=== PATIENT | female | born 1965 | race Caucasian/White ===

== ENCOUNTER 2018-10-12 17:24 | Inpatient (IN) | payer BC ==
--- NOTE | 2018-10-12 17:31 | PDOC ---
Rapid Medical Evaluation Time Seen by Provider: 10/12/18 17:29 Medical Evaluation: Allergies Allergy/AdvReac Type Severity Reaction Status Date / Time No Known Allergies Allergy Verified 10/12/18 17:29 10/12/18 17:30 I have performed a brief in-person evaluation of the patient. The patient presents with a chief complaint of: right 2nd toe non healing wound. Patient referred to ed by pmd for admission for treatment Pertinent physical exam findings. NAD alert and oriented even and unlabored breathing post-procedure shoe on right foot I have ordered the following. iv access, labs The patient will proceed to the ED for further evaluation. Discharge Disposition - Referrals Referrals: Rafita Ledesma, LEENA [Primary Care Provider] - - Patient Instructions - Post Discharge Activity
[2018-10-12 17:51] LABS: BASO % 0.6 % (0-2.0); EOS % 1.5 % (0-4.5); HEMOGLOBIN 13.8 GM/dL (10.7-15.3); LYMPH % 26.9 % (8-40); MCH 30.2 pg (25.7-33.7); MCHC 34.6 g/dl (32.0-36.0); MEAN CELL VOLUME 87.4 fl (80-96); MEAN PLT VOLUME 8.1 fl (7.5-11.1); MONO % 6.1 % (3.8-10.2); NEUT % 64.9 % (42.8-82.8); PLATELET COUNT 237 K/MM3 (134-434); RBC 4.58 M/mm3 (3.60-5.2); RDW 12.9 % (11.6-15.6)
[2018-10-12] MEDS ORDERED: BACITRACIN 0.9 GM PACKET ONE (18:45)
[2018-10-12 18:50] LABS: ALBUMIN 4.3 g/dl (3.4-5.0); ALK PHOS 86 U/L (45-117); ANION GAP 5 MMOL/L (8-16); BILIRUBIN,TOTAL 0.4 mg/dL (0.2-1); BLOOD UREA NITROGEN 19 mg/dL (7-18); CALCIUM 9.7 mg/dL (8.5-10.1); CHLORIDE 100 mmol/L (98-107); CO2 31 mmol/L (21-32); CREATININE 0.9 mg/dL (0.55-1.3); GLUCOSE,RANDOM 156 mg/dL (74-106); POTASSIUM 4.4 mmol/L (3.5-5.1); SGOT/AST 15 U/L (15-37); SGPT/ALT 25 U/L (13-61); SODIUM 136 mmol/L (136-145)
--- NOTE | 2018-10-12 18:54 | PDOC ---
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 She had an MRI which was ordered by Dr. Ledesma which was suspicious for osteomylitis. She has been taking keflex since October 06 but she reports that her ulcer has gotten bigger and her toe hurts a significant amount when she ambulates. She was seen by Dr. Tellez recently at the [facility] for evaluation of this RT 2nd toe ulcer. She has no toe pain at rest. She has full strength and sensation in her toe and foot. She has a note from Dr. Ledesma which requests admission to Dr. Mario's service and for consults to be placed to Dr. Ledesma, Dr. Tellez, and Dr. Howard. She denies any recent fevers, chills, chest pain, SOB, difficulty breathing, headache, blurry vision, neck pain, abdominal pain, nausea, vomiting, diarrhea, or constipation. PCP: Shalini Beverly Podiatrst: Dr. Sharp Vascular surgeon: Dr. Tellez Psh: Cholecystectomy, R hip surgery for septic hip. Allergies: NKA, NKDA Social Hx: Smokes 1 cigarette per day. Former smoker (25-year history, 1/2 pack daily). Denies alcohol or other substance usage. Past History - Past Medical History Allergies/Adverse Reactions: Allergies Allergy/AdvReac Type Severity Reaction Status Date / Time No Known Allergies Allergy Verified 10/12/18 17:29 Home Medications: Ambulatory Orders Cholecalciferol (Vitamin D3) [Vitamin D3 -] 1,000 units PO DAILY 10/08/18 Gabapentin 300 mg PO TID 10/08/18 Glipizide [Glipizide ER] 10 mg PO BID 10/08/18 Lisinopril [Prinivil] 20 mg PO DAILY 10/08/18 Metformin HCl [Glucophage] 1,000 mg PO BID 10/08/18 Sitagliptin Phosphate [Januvia -] 50 mg PO BID 10/08/18 COPD: No Diabetes: Yes HTN: Yes - Surgical History Cholecystectomy: Yes - Suicide/Smoking/Psychosocial Hx Smoking History: Former smoker Have you smoked in the past 12 months: No If you are a former smoker, when did you quit?: 25 yrs ago Information on smoking cessation initiated: No Review of Systems - Review of Systems Able to Perform ROS?: Yes Comments:: CONSTITUTIONAL: Absent: fever, no chills, no fatigue EYES: Absent: visual changes ENT: Absent: ear pain, no sore throat CARDIOVASCULAR: Absent: chest pain, no palpitations RESPIRATORY: Absent: cough, no SOB GI: Absent: abdominal pain, no nausea, no vomiting, no constipation, no diarrhea GENITOURINARY: Absent: dysuria, no frequency, no hematuria MUSKULOSKELETAL: Absent: back pain, no arthralgia, no myalgia SKIN: Present: rash NEURO: Absent: headache *Physical Exam - Vital Signs Last Vital Signs Temp Pulse Resp BP Pulse Ox 98.4 F 84 18 163/67 98 10/12/18 17:29 10/12/18 17:29 10/12/18 17:29 10/12/18 17:29 10/12/18 17:29 - Physical Exam Comments: Right Foot: 2 + pulses in oth ankles. Full ROM. Equal strength and sensation throughout both feet. There is a 2x2 ulcer with a possibly necrotic center. The RT 2nd toe is painful to touch. She is able to move it without any difficulty. The entire toe appears mildly erythematous. GENERAL: Well-appearing, well-nourished. No apparent distress. HEENT: Normocephalic, atraumatic. PERRL, EOM intact. CARDIOVASCULAR: Normal S1, S2. Regular rate and rhythm. PULMONARY: Clear to auscultation bilaterally. ABDOMEN: Soft, non-distended, non-tender. EXTREMITIES: Normal ROM in all four extremities. No gross deformities other than right 2nd big toe. SKIN: Warm, dry. NEUROLOGICAL: No focal neurological deficits. Moderate Sedation - Procedure Monitoring Vital Signs: Procedure Monitoring Vital Signs Temperature 98.4 F 10/12/18 17:29 Pulse Rate 84 10/12/18 17:29 Respiratory Rate 18 10/12/18 17:29 Blood Pressure 163/67 10/12/18 17:29 O2 Sat by Pulse Oximetry (%) 98 10/12/18 17:29 ED Treatment Course - LABORATORY CBC & Chemistry Diagram: 10/12/18 17:41 10/12/18 17:41 - ADDITIONAL ORDERS Additional order review: Laboratory Results 10/12/18 17:41 Sodium 136 Potassium 4.4 Chloride 100 Carbon Dioxide 31 Anion Gap 5 L BUN 19 H Creatinine 0.9 Creat Clearance w eGFR > 60 Random Glucose 156 H Calcium 9.7 Total Bilirubin 0.4 AST 15 ALT 25 Alkaline Phosphatase 86 Total Protein 8.0 Albumin 4.3 10/12/18 17:41 RBC 4.58 MCV 87.4 MCHC 34.6 RDW 12.9 MPV 8.1 Neutrophils % 64.9 Lymphocytes % 26.9 D Monocytes % 6.1 Eosinophils % 1.5 Basophils % 0.6 Medical Decision Making - Medical Decision Making 53 Yo M w a pmh of HTN, T2DM, Right 2nd toe infection presents to the ER sent in by her nurse ldr to be admitted for her ulcer on the right toe after a failed outpatient treatment of cephalexin. She had an MRI which was ordered by Dr. Ledesma which was suspicious for possible osteomylitis. She has been taking keflex since October 06 but she reports that her ulcer has gotten bigger and her toe hurts a significant amount when she ambulates. She was seen by Dr. Tellez recently at the [facility] for evaluation of this RT 2nd toe ulcer. She has no toe pain at rest. She has full strength and sensation in her toe and foot. She has a note from Dr. Ledesma which requests admission to Dr. Mario's service and for consults to be placed to Dr. Ledesma, Dr. Tellez, and Dr. Howard. DDx IBNLT: Osteo vs cellulitis, diabetic ulcer, narcotizing fash, erysipelas Plan: Cbc, Cmp, Lactic, CPK, blood cultures, wound cultures, foot/toe x-rays, EKG, IV, Vanc, Zosyn, Admit, Consults to podiatry, ID, Vascular. - Consults placed. Labs unremarkable other than mild bump in BUN to 19. EKG normal sinus X-rays do not show signs of sub-Q donna. Spoke with Dr. Howard about patient. He agrees with starting Vanc and Zosyn and he will see the patient tomorrow. Call placed for admission to Dr. Mario for admission at 9:46 - Admission accepted *DC/Admit/Observation/Transfer Diagnosis at time of Disposition: Diabetic toe ulcer - Discharge Dispostion Condition at time of disposition: Guarded Decision to Admit order: Yes - Referrals - Patient Instructions - Post Discharge Activity
[2018-10-12] MEDS ORDERED: VANCOMYCIN 1,000 MG in DEXTROSE 5%-WATER - 250 ML IVPB ONE (19:23)
[2018-10-12] MEDS ORDERED: PIPERACILLIN/TAZOB 3.375 GM 3.375 GM in DEXTROSE 5%-WATER - 50 ML IVPB ONE (19:24)
--- NOTE | 2018-10-12 19:31 | PDOC ---
Attending Attestation - HPI HPI: 10/12/18 20:10 The patient is a 53 year old female with a past medical history of T2DM, HTN, and right 2nd toe osteomyelitis who presents to the emergency department by her edge burnisher uppers for evaluation of worsening ulcer on right toe. Patient was treated with cephalexin. Patient reports difficulty ambulating secondary to toe pain. Denies chest pain, SOB, headache, neck pain, abdominal pain, blurry vision, nausea, vomiting, recent fevers, chills, diarrhea, or constipation. Wash Oil Pump Operator: Dr. Sharp Vascular surgeon: Dr. Tellez PCP: Dr. Shalini Beverly - Physicial Exam PE: I agree with the resident's findings on the physical exam. - Medical Decision Making Documentation prepared by Albino White, acting as medical pathology teacher for Brigida Freitas DO. <Albino White - Last Filed: 10/12/18 20:10> - Resident Resident Name: Ravi Orlando - ED Attending Attestation I have performed the following: I have examined & evaluated the patient, The case was reviewed & discussed with the resident, I agree w/resident's findings & plan - Medical Decision Making 53-year-old female sent in for admission due to failed outpatient treatment with ulceration to the right second toe X-rays show no evidence of subcutaneous gas There is no obvious bony destruction though according to recent MRI reports done outpatient there were questionable changes consistent with osteomyelitis Zosyn and vancomycin initiated in the emergency department after both blood and wound cultures were obtained and Infectious disease consult was obtained Patient to be admitted to medical service for further management Impression infected toe ulcer 10/12/18 21:51 <Brigida Freitas - Last Filed: 10/12/18 21:53>
[2018-10-12] MEDS ORDERED: VANCOMYCIN 1 GRAM (PRE-DOCKED) 1,000 MG/250 ML BAG IVPB ONE (20:56)
[2018-10-12] MEDS ORDERED: PIPERACILLIN/TAZOB 3.375 GM 3.375 GM/50 ML BAG IVPB ONE (20:56)
[2018-10-12] MEDS ORDERED: ACETAMINOPHEN 325 MG TABLET (FP) PO ONE (21:32)
[2018-10-12] MEDS ORDERED: ACETAMINOPHEN 325 MG TABLET (FP) ONE (22:24)
[2018-10-13] MEDS: INSULIN SLIDING SCALE (NOVOLOG) 1 VIAL SQ SCH ×4 (06:10→22:10)
[2018-10-13] MEDS: metFORMIN HCL 500 MG TABLET (FP) PO SCH ×2 (06:36→17:13)
[2018-10-13] MEDS: glipiZIDE-XL 10 MG TAB.ER.24 (FP) PO SCH ×2 (06:36→18:23)
[2018-10-13] MEDS: GABAPENTIN 300 MG CAPSULE (FP) PO SCH ×3 (06:37→22:09)
[2018-10-13] MEDS: sitaGLIPtin PHOSPHATE 50 MG TABLET PO SCH ×2 (06:37→17:13)
[2018-10-13 08:32] LABS: BASO % 0.4 % (0-2.0); EOS % 1.4 % (0-4.5); HEMATOCRIT 37.5 % (32.4-45.2); HEMOGLOBIN 12.9 GM/dL (10.7-15.3); LYMPH % 20.2 % (8-40); MCH 29.7 pg (25.7-33.7); MCHC 34.3 g/dl (32.0-36.0); MEAN CELL VOLUME 86.7 fl (80-96); MEAN PLT VOLUME 8.3 fl (7.5-11.1); MONO % 7.7 % (3.8-10.2); NEUT % 70.3 % (42.8-82.8); PLATELET COUNT 218 K/MM3 (134-434); RBC 4.33 M/mm3 (3.60-5.2); RDW 12.7 % (11.6-15.6); WHITE BLOOD COUNT 10.5 K/mm3 (4.0-10.0)
[2018-10-13 08:56] LABS: ALBUMIN 3.8 g/dl (3.4-5.0); ALK PHOS 75 U/L (45-117); ANION GAP 6 MMOL/L (8-16); BILIRUBIN,TOTAL 0.5 mg/dL (0.2-1); BLOOD UREA NITROGEN 22 mg/dL (7-18); CHLORIDE 102 mmol/L (98-107); CO2 28 mmol/L (21-32); CREATININE 0.8 mg/dL (0.55-1.3); GLUCOSE,RANDOM 146 mg/dL (74-106); POTASSIUM 4.7 mmol/L (3.5-5.1); SGOT/AST 8 U/L (15-37); SGPT/ALT 18 U/L (13-61); SODIUM 136 mmol/L (136-145)
[2018-10-13] MEDS ORDERED: PIPERACILLIN/TAZOBACTAM 3.375 GM VIAL IVPB ONE (09:36)
[2018-10-13] MEDS ORDERED: DEXTROSE 5%-WATER - 50 ML IVPB ONE ×2 (09:36→15:06)
[2018-10-13] MEDS: ACETAMINOPHEN 325 MG TABLET (FP) PO PRN ×2 (09:45→18:23)
[2018-10-13] MEDS: LISINOPRIL 20 MG TABLET (FP) PO SCH (09:46)
[2018-10-13] MEDS: HEPARIN NA (PORCINE) 5,000 UNITS/ML 1ML VIAL SQ SCH ×2 (09:49→22:09)
[2018-10-13] MEDS: VANCOMYCIN 1 GM in D5W (PRE-DOCKED) 1,000 MG/250 ML IVPB SCH ×2 (09:49→22:10)
[2018-10-13] MEDS ORDERED: PIPERACILLIN/TAZOB 3.375 GM 3.375 GM in DEXTROSE 5%-WATER - 50 ML IVPB SCH (10:00)
--- NOTE | 2018-10-13 10:09 | CONSULT ---
- Consultation REQUESTING PROVIDER: CONSULT REQUEST: We have been asked to surgically evaluate this patient for Left 2nd toe ulcer PCP:Tracey Mario HISTORY OF PRESENT ILLNESS: 53yo F admitted for concern of osteo of the 2nd Lt toe. Pt was seen by Dr. Tellez in clinic last week and had vascular studies ordered. Pt states she is a former smoker, denies vascular problems. Pt states that she has had the wound for about 1 month. PMHx: DM Home Medications Medication Instructions Recorded Cholecalciferol (Vitamin D3) 1,000 units PO DAILY 10/08/18 [Vitamin D3 -] Gabapentin 300 mg PO TID 10/08/18 Glipizide [Glipizide ER] 10 mg PO BID 10/08/18 Lisinopril [Prinivil] 20 mg PO DAILY 10/08/18 Metformin HCl [Glucophage] 1,000 mg PO BID 10/08/18 Sitagliptin Phosphate [Januvia -] 50 mg PO BID 10/08/18 Allergies Allergy/AdvReac Type Severity Reaction Status Date / Time No Known Allergies Allergy Verified 10/12/18 17:29 PHYSICAL EXAM: GENERAL: Awake, alert, and fully oriented, in no acute distress. HEAD: Normal with no signs of trauma. EYES: PERRL, sclera anicteric, conjunctiva clear. NECK: Normal ROM, supple without lymphadenopathy, JVD, or masses. LUNGS: Clear to auscultation bilat anteriorly. No wheezes, and no crackles. No accessory muscle use. HEART: Regular rate and rhythm. No murmurs ABDOMEN: Soft, nontender, not distended, normoactive bowel sounds, no guarding, no rebound, no masses. No organomegaly. MUSCULOSKELETAL: Normal ROM at all joints. No bony deformities or tenderness. No CVA tenderness. LOWER EXTREMITIES: warm, well-perfused. No calf tenderness. No peripheral edema. Lt 2nd toe, 1 cm ulcer lateral aspect distal phalanx NEUROLOGICAL: Normal speech, gait not observed. PSYCH: Cooperative. Good eye contact. Appropriate mood and affect. SKIN: Warm, dry, normal turgor, no rashes or lesions noted. Vital Signs Temperature 97.6 F 10/13/18 06:00 Pulse Rate 65 10/13/18 06:00 Respiratory Rate 20 10/13/18 06:00 Blood Pressure 125/65 10/13/18 06:00 O2 Sat by Pulse Oximetry (%) 99 10/13/18 01:14 Lab Results WBC 10.5 K/mm3 (4.0-10.0) H 10/13/18 07:57 RBC 4.33 M/mm3 (3.60-5.2) 10/13/18 07:57 Hgb 12.9 GM/dL (10.7-15.3) 10/13/18 07:57 Hct 37.5 % (32.4-45.2) 10/13/18 07:57 MCV 86.7 fl (80-96) 10/13/18 07:57 MCHC 34.3 g/dl (32.0-36.0) 10/13/18 07:57 RDW 12.7 % (11.6-15.6) 10/13/18 07:57 Plt Count 218 K/MM3 (134-434) 10/13/18 07:57 Sodium 136 mmol/L (136-145) 10/13/18 07:57 Potassium 4.7 mmol/L (3.5-5.1) 10/13/18 07:57 Chloride 102 mmol/L (98-107) 10/13/18 07:57 Carbon Dioxide 28 mmol/L (21-32) 10/13/18 07:57 Anion Gap 6 MMOL/L (8-16) L 10/13/18 07:57 BUN 22 mg/dL (7-18) H 10/13/18 07:57 Creatinine 0.8 mg/dL (0.55-1.3) 10/13/18 07:57 Random Glucose 146 mg/dL (74-106) H 10/13/18 07:57 Calcium 9.0 mg/dL (8.5-10.1) 10/13/18 07:57 Problem List - Problems (1) Diabetic toe ulcer Assessment/Plan: Plan -will order vascular studies -wound care as per podiatry team -appreciate med/ID recs for possible osteo Code(s): E11.621 - TYPE 2 DIABETES MELLITUS WITH FOOT ULCER; L97.509 - NON- PRESSURE CHRONIC ULCER OTH PRT UNSP FOOT W UNSP SEVERITY
[2018-10-13] MEDS ORDERED: INSULIN (NOVOLOG) ASPART 100 UNITS/ML 10ML VIAL ONE (11:33)
--- NOTE | 2018-10-13 12:17 | EKG ---
Test Reason : Blood Pressure : / mmHG Vent. Rate : 076 BPM Atrial Rate : 076 BPM P-R Int : 108 ms QRS Dur : 086 ms QT Int : 382 ms P-R-T Axes : 055 031 037 degrees QTc Int : 429 ms SINUS RHYTHM WITH SHORT CA OTHERWISE NORMAL ECG Confirmed by MD DARCY, VIVIANA ([id number]) on 10/13/2018 12:16:28 PM Referred By: Confirmed By:VIVIANA TAVERAS MD
--- NOTE | 2018-10-13 13:15 | CON.ID ---
Consult Consult Specialty:: infectious diseases Referred by:: Reason for Consultation:: foot pain - History of Present Illness Chief Complaint: pain of the foot,wound History of Present Illness: 53 Yo F w a pmh of HTN, T2DM,admitted for the wound her ulcer on the right toe after a failed outpatient treatment of cephalexin. She had an MRI which was ordered by Dr. Ledesma which was suspicious for osteomylitis. She has been taking keflex since October 06 but she reports that her ulcer has gotten bigger and her toe hurts a significant amount when she ambulates. She was seen by Dr. Tellez recently at the [facility] for evaluation of this RT 2nd toe ulcer. She has no toe pain at rest. She has full strength and sensation in her toe and foot. She denies any recent fevers, chills, chest pain, SOB, difficulty breathing, headache, blurry vision, neck pain, abdominal pain, nausea, vomiting, diarrhea, or constipation. - History Source History Provided By: Patient Limitations to Obtaining History: No Limitations - Alcohol/Substance Use Hx Alcohol Use: No - Smoking History Smoking history: Never smoked Have you smoked in the past 12 months: No If you are a former smoker, when did you quit?: 25 yrs ago Home Medications - Allergies Allergies/Adverse Reactions: Allergies Allergy/AdvReac Type Severity Reaction Status Date / Time No Known Allergies Allergy Verified 10/12/18 17:29 - Home Medications Home Medications: Ambulatory Orders Cholecalciferol (Vitamin D3) [Vitamin D3 -] 1,000 units PO DAILY 10/08/18 RX: Gabapentin 300 mg PO TID 10/08/18 RX: Glipizide [Glipizide ER] 10 mg PO BID 10/08/18 RX: Lisinopril [Prinivil] 20 mg PO DAILY 10/08/18 RX: Metformin HCl [Glucophage] 1,000 mg PO BID 10/08/18 Sitagliptin Phosphate [Januvia -] 50 mg PO BID 10/08/18 Review of Systems - Review of Systems Constitutional: reports: No Symptoms Eyes: reports: No Symptoms HENT: reports: No Symptoms Neck: reports: No Symptoms Cardiovascular: reports: No Symptoms Respiratory: reports: No Symptoms Gastrointestinal: reports: No Symptoms Genitourinary: reports: No Symptoms Musculoskeletal: reports: Extremity Pain, Other Integumentary: reports: Change in Color, Erythema Neurological: reports: No Symptoms Endocrine: reports: No Symptoms Hematology/Lymphatic: reports: No Symptoms Psychiatric: reports: No Symptoms Physical Exam Vital Signs: Vital Signs Temperature 98.4 F 10/13/18 10:33 Pulse Rate 70 10/13/18 10:33 Respiratory Rate 20 10/13/18 10:33 Blood Pressure 124/77 10/13/18 10:33 O2 Sat by Pulse Oximetry (%) 99 10/13/18 01:14 Constitutional: Yes: Well Nourished, No Distress, Calm Eyes: Yes: Conjunctiva Clear HENT: Yes: Atraumatic Neck: Yes: Supple, Trachea Midline Cardiovascular: Yes: Regular Rate and Rhythm Respiratory: Yes: Regular, CTA Bilaterally Gastrointestinal: Yes: Normal Bowel Sounds, Soft Musculoskeletal: Yes: Other Extremities: Yes: Other (Other ((+) rt 2nd toe w/ chronic ulcer)) Wound/Incision: Yes: Other (Other ((+) rt 2nd toe w/ chronic ulcer)) Psychiatric: Yes: Alert, Oriented Labs: CBC, BMP 10/13/18 07:57 10/13/18 07:57 Imaging - Results MRI: Report Reviewed, Image Reviewed Assessment/Plan Problem List - Problems (1) Diabetic toe ulcer Code(s): E11.621 - TYPE 2 DIABETES MELLITUS WITH FOOT ULCER; L97.509 - NON- PRESSURE CHRONIC ULCER OTH PRT UNSP FOOT W UNSP SEVERITY (2) Diabetes Code(s): E11.9 - TYPE 2 DIABETES MELLITUS WITHOUT COMPLICATIONS (3) HTN (hypertension) Code(s): I10 - ESSENTIAL (PRIMARY) HYPERTENSION wound infection plan will start patient on abx await for all studies doubt this is osteo vascular on case rest as per the team
--- NOTE | 2018-10-13 13:48 | CONSULT ---
Consult Consult Specialty:: Podiatry Reason for Consultation:: Infected 2nd toe right - History of Present Illness Chief Complaint: wound right foot 2nd toe chronic no om on mri from 10/06/2018 History of Present Illness: open wound 2nd toe right since a few weeks. - History Source History Provided By: Patient, Family Member - Alcohol/Substance Use Hx Alcohol Use: No - Smoking History Smoking history: Never smoked Have you smoked in the past 12 months: No If you are a former smoker, when did you quit?: 25 yrs ago Home Medications - Allergies Allergies/Adverse Reactions: Allergies Allergy/AdvReac Type Severity Reaction Status Date / Time No Known Allergies Allergy Verified 10/12/18 17:29 - Home Medications Home Medications: Ambulatory Orders Cholecalciferol (Vitamin D3) [Vitamin D3 -] 1,000 units PO DAILY 10/08/18 Gabapentin 300 mg PO TID 10/08/18 Glipizide [Glipizide ER] 10 mg PO BID 10/08/18 Lisinopril [Prinivil] 20 mg PO DAILY 10/08/18 Metformin HCl [Glucophage] 1,000 mg PO BID 10/08/18 Sitagliptin Phosphate [Januvia -] 50 mg PO BID 10/08/18 Physical Exam Vital Signs: Vital Signs Temperature 98.4 F 10/13/18 10:33 Pulse Rate 70 10/13/18 10:33 Respiratory Rate 20 10/13/18 10:33 Blood Pressure 124/77 10/13/18 10:33 O2 Sat by Pulse Oximetry (%) 99 10/13/18 01:14 Extremities: Yes: Other (+cellulitis with chronic wound right 2nd toe tip, + grade 2-3, -om on digits on MRI noted,) Labs: CBC, BMP 10/13/18 07:57 10/13/18 07:57 Assessment/Plan om? cellulitis Santyl to wound 2nd toe right. Vascular and ID on case. MRI done 10/06/2018 no mention of om 2nd toe tip. Discussed with ID and patient has seen Dr. Tellez outpatient and needs re-vascularization/angiogram possibly right lower extremity.
[2018-10-13] MEDS ORDERED: cefTRIAXone SODIUM 1 GM VIAL ONE (15:06)
[2018-10-13] MEDS: CEFTRIAXONE 1 GM in DEXTROSE 5%-WATER - 50 ML IVPB SCH (15:09)
[2018-10-13] MEDS ORDERED: PT OWN MED DRAWER 7, Y5N ONE (16:50)
--- NOTE | 2018-10-13 19:15 | HP ---
Admitting History and Physical - Admission History of Present Illness: Pt is a 53 y/o female w/ PMH significant for HTN, diabetes and peripheral ueropathy. Pt has had a chronic wound/ulcer on her rt 2nd toe for more than 1 month. Pt had a MRI which was ordered by Dr. Ledesma which was suspicious for osteomylitis. She has been taking keflex since October 06 but she reports that her ulcer has gotten bigger and her toe hurts a significant amount when she ambulates. History Source: Patient - Past Medical History Cardiovascular: Yes: HTN Endocrine: Yes: Diabetes Mellitus - Smoking History Smoking history: Never smoked Have you smoked in the past 12 months: No If you are a former smoker, when did you quit?: 25 yrs ago - Alcohol/Substance Use Hx Alcohol Use: No Home Medications - Allergies Allergies/Adverse Reactions: Allergies Allergy/AdvReac Type Severity Reaction Status Date / Time No Known Allergies Allergy Verified 10/12/18 17:29 - Home Medications Home Medications: Ambulatory Orders Cholecalciferol (Vitamin D3) [Vitamin D3 -] 1,000 units PO DAILY 10/08/18 Gabapentin 300 mg PO TID 10/08/18 Glipizide [Glipizide ER] 10 mg PO BID 10/08/18 Lisinopril [Prinivil] 20 mg PO DAILY 10/08/18 Metformin HCl [Glucophage] 1,000 mg PO BID 10/08/18 Sitagliptin Phosphate [Januvia -] 50 mg PO BID 10/08/18 Family Disease History - Family Disease History Family History: Unremarkable Review of Systems - Review of Systems Constitutional: reports: No Symptoms Eyes: reports: No Symptoms HENT: reports: No Symptoms Neck: reports: No Symptoms Cardiovascular: reports: No Symptoms Respiratory: reports: No Symptoms Gastrointestinal: reports: No Symptoms Physical Examination Vital Signs: Vital Signs Temperature 98.0 F 10/13/18 18:00 Pulse Rate 69 10/13/18 18:00 Respiratory Rate 20 10/13/18 18:00 Blood Pressure 140/72 10/13/18 18:00 O2 Sat by Pulse Oximetry (%) 98 10/13/18 09:00 Constitutional: Yes: No Distress HENT: Yes: WNL Neck: Yes: WNL, Supple Cardiovascular: Yes: WNL, Regular Rate and Rhythm Respiratory: Yes: WNL, Regular, CTA Bilaterally Gastrointestinal: Yes: WNL, Normal Bowel Sounds, Soft Extremities: Yes: Other ((+) rt 2nd toe w/ chronic ulcer) Edema: No Neurological: Yes: WNL, Alert, Oriented ...Motor Strength: WNL Labs: CBC, BMP 10/13/18 07:57 10/13/18 07:57 Problem List - Problems (1) Diabetic toe ulcer Assessment/Plan: Cont IV antibiotics Follow cultures Await Vascular recommendations Code(s): E11.621 - TYPE 2 DIABETES MELLITUS WITH FOOT ULCER; L97.509 - NON- PRESSURE CHRONIC ULCER OTH PRT UNSP FOOT W UNSP SEVERITY (2) Diabetes Assessment/Plan: Cont metformin/januvia/glybizide Cont sliding scale w/ coverage Code(s): E11.9 - TYPE 2 DIABETES MELLITUS WITHOUT COMPLICATIONS (3) HTN (hypertension) Assessment/Plan: Cont lisinopril Code(s): I10 - ESSENTIAL (PRIMARY) HYPERTENSION
[2018-10-14] MEDS: ACETAMINOPHEN 325 MG TABLET (FP) PO PRN ×2 (04:53→22:03)
[2018-10-14] MEDS ORDERED: PT OWN MED DRAWER 7, Y5N ONE ×4 (06:26→21:30)
[2018-10-14] MEDS: glipiZIDE-XL 10 MG TAB.ER.24 (FP) PO SCH ×2 (07:15→17:46)
[2018-10-14] MEDS: metFORMIN HCL 500 MG TABLET (FP) PO SCH ×2 (07:15→17:43)
[2018-10-14] MEDS: GABAPENTIN 300 MG CAPSULE (FP) PO SCH ×3 (07:15→22:01)
[2018-10-14] MEDS: sitaGLIPtin PHOSPHATE 50 MG TABLET PO SCH ×2 (07:16→17:43)
[2018-10-14] MEDS: INSULIN SLIDING SCALE (NOVOLOG) 1 VIAL SQ SCH ×4 (07:17→22:08)
--- NOTE | 2018-10-14 07:35 | PN ---
Progress Note (short form) - Note Progress Note: surgery Awaiting PVR's (ordered). Continue wound care per ID and podiatry Vascular to follow
[2018-10-14] MEDS ORDERED: DEXTROSE 5%-WATER - 50 ML IVPB ONE (09:59)
[2018-10-14] MEDS ORDERED: cefTRIAXone SODIUM 1 GM VIAL ONE (09:59)
[2018-10-14] MEDS ORDERED: VANCOMYCIN 1 GM in D5W (PRE-DOCKED) 1,000 MG/250 ML IVPB SCH (10:00)
[2018-10-14] MEDS: HEPARIN NA (PORCINE) 5,000 UNITS/ML 1ML VIAL SQ SCH ×2 (10:54→22:01)
[2018-10-14] MEDS: LISINOPRIL 20 MG TABLET (FP) PO SCH (10:55)
[2018-10-14] MEDS: CEFTRIAXONE 1 GM in DEXTROSE 5%-WATER - 50 ML IVPB SCH (10:56)
--- NOTE | 2018-10-14 13:58 | PN ---
Progress Note, Physician History of Present Illness: patient stable no new issues wound looks better cx results noted await for sensitivities - Current Medication List Current Medications: Active Medications Acetaminophen (Tylenol -) 650 mg PO Q6H PRN PRN Reason: PAIN LEVEL 1-5 Last Admin: 10/14/18 04:53 Dose: 650 mg Gabapentin (Neurontin -) 300 mg PO TID [facility] Last Admin: 10/14/18 07:15 Dose: 300 mg Glipizide (Glucotrol Xl -) 10 mg PO BIDAC [facility] Last Admin: 10/14/18 07:15 Dose: 10 mg Heparin Sodium (Porcine) (Heparin -) 5,000 unit SQ BID [facility] Last Admin: 10/14/18 10:54 Dose: 5,000 unit Ceftriaxone Sodium 1 gm/ (Dextrose) 50 mls @ 100 mls/hr IVPB DAILY [facility]; Protocol Last Admin: 10/14/18 10:56 Dose: 100 mls/hr Insulin Aspart (Novolog Vial Sliding Scale -) 1 vial SQ ACHS [facility]; Protocol Last Admin: 10/14/18 12:43 Dose: 4 units Lisinopril (Prinivil) 20 mg PO DAILY [facility] Last Admin: 10/14/18 10:55 Dose: 20 mg Metformin HCl (Glucophage -) 1,000 mg PO BIDAC [facility] Last Admin: 10/14/18 07:15 Dose: 1,000 mg Sitagliptin Phosphate (Januvia -) 50 mg PO BIDAC [facility] Last Admin: 10/14/18 07:16 Dose: 50 mg - Objective Vital Signs: Vital Signs Temperature 97.9 F 10/14/18 09:36 Pulse Rate 76 10/14/18 09:36 Respiratory Rate 18 10/14/18 09:36 Blood Pressure 123/73 10/14/18 09:36 O2 Sat by Pulse Oximetry (%) 98 10/13/18 21:00 Constitutional: Yes: No Distress, Calm Cardiovascular: Yes: Regular Rate and Rhythm Respiratory: Yes: Regular, CTA Bilaterally Gastrointestinal: Yes: Normal Bowel Sounds, Soft Musculoskeletal: Yes: WNL Extremities: Yes: Other Neurological: Yes: Alert, Oriented Psychiatric: Yes: Alert, Oriented Labs: CBC, BMP 10/13/18 07:57 10/13/18 07:57 Assessment/Plan Problem List - Problems (1) Diabetic toe ulcer Code(s): E11.621 - TYPE 2 DIABETES MELLITUS WITH FOOT ULCER; L97.509 - NON- PRESSURE CHRONIC ULCER OTH PRT UNSP FOOT W UNSP SEVERITY (2) Diabetes Code(s): E11.9 - TYPE 2 DIABETES MELLITUS WITHOUT COMPLICATIONS (3) HTN (hypertension) Code(s): I10 - ESSENTIAL (PRIMARY) HYPERTENSION wound infection plan continue current abx await for vascular studies wound care rest as per the team
[2018-10-14] MEDS: PIPERACILLIN/TAZOB 3.375 GM 3.375 GM in DEXTROSE 5%-WATER - 50 ML IVPB SCH ×2 (16:14→16:15)
--- NOTE | 2018-10-14 19:54 | PN ---
Progress Note (short form) - Note Progress Note: FUV right foot wound. Daughter in law present. vss, Tmax 98.4 wbc improved from outpatient 10.5 today, +dry wound, -drainage, presumptive mssa grade 2 wound IVABX as per ID. White to wound 2nd toe right. Will follow till dc.
[2018-10-14] MEDS: COLLAGENASE CLOSTRIDIUM HIST. 30 GRAMS TUBE TP SCH (22:31)
--- NOTE | 2018-10-14 23:28 | PN ---
Progress Note, Physician History of Present Illness: No new changes - Current Medication List Current Medications: Active Medications Acetaminophen (Tylenol -) 650 mg PO Q6H PRN PRN Reason: PAIN LEVEL 1-5 Last Admin: 10/14/18 22:03 Dose: 650 mg Collagenase (Santyl -) 1 applic TP DAILY [facility]; Protocol Last Admin: 10/14/18 22:31 Dose: 1 applic Gabapentin (Neurontin -) 300 mg PO TID [facility] Last Admin: 10/14/18 22:01 Dose: 300 mg Glipizide (Glucotrol Xl -) 10 mg PO BIDAC [facility] Last Admin: 10/14/18 17:46 Dose: 10 mg Heparin Sodium (Porcine) (Heparin -) 5,000 unit SQ BID [facility] Last Admin: 10/14/18 22:01 Dose: 5,000 unit Ceftriaxone Sodium 1 gm/ (Dextrose) 50 mls @ 100 mls/hr IVPB DAILY [facility]; Protocol Last Admin: 10/14/18 10:56 Dose: 100 mls/hr Insulin Aspart (Novolog Vial Sliding Scale -) 1 vial SQ ACHS [facility]; Protocol Last Admin: 10/14/18 22:08 Dose: Not Given Lisinopril (Prinivil) 20 mg PO DAILY [facility] Last Admin: 10/14/18 10:55 Dose: 20 mg Metformin HCl (Glucophage -) 1,000 mg PO BIDAC [facility] Last Admin: 10/14/18 17:43 Dose: 1,000 mg Sitagliptin Phosphate (Januvia -) 50 mg PO BIDAC [facility] Last Admin: 10/14/18 17:43 Dose: 50 mg - Objective Vital Signs: Vital Signs Temperature 98.0 F 10/14/18 17:59 Pulse Rate 74 10/14/18 17:59 Respiratory Rate 20 10/14/18 17:59 Blood Pressure 104/54 L 10/14/18 17:59 O2 Sat by Pulse Oximetry (%) 98 10/13/18 21:00 Neck: Yes: WNL, Supple Cardiovascular: Yes: WNL, Regular Rate and Rhythm Respiratory: Yes: WNL, Regular, CTA Bilaterally Gastrointestinal: Yes: WNL, Normal Bowel Sounds, Soft Extremities: Yes: Other (Rt 2nd toe w/ ulcer) Labs: CBC, BMP 10/13/18 07:57 10/13/18 07:57 Problem List - Problems (1) Diabetic toe ulcer Assessment/Plan: Cont IV antibiotics Follow cultures Await Vascular recommendations Code(s): E11.621 - TYPE 2 DIABETES MELLITUS WITH FOOT ULCER; L97.509 - NON- PRESSURE CHRONIC ULCER OTH PRT UNSP FOOT W UNSP SEVERITY (2) Diabetes Assessment/Plan: Cont metformin/januvia/glybizide Cont sliding scale w/ coverage Code(s): E11.9 - TYPE 2 DIABETES MELLITUS WITHOUT COMPLICATIONS (3) HTN (hypertension) Assessment/Plan: Cont lisinopril Code(s): I10 - ESSENTIAL (PRIMARY) HYPERTENSION
[2018-10-15] MEDS: GABAPENTIN 300 MG CAPSULE (FP) PO SCH ×3 (06:38→21:44)
[2018-10-15] MEDS: metFORMIN HCL 500 MG TABLET (FP) PO SCH ×2 (06:39→16:57)
[2018-10-15] MEDS: sitaGLIPtin PHOSPHATE 50 MG TABLET PO SCH ×2 (06:39→16:57)
[2018-10-15] MEDS: glipiZIDE-XL 10 MG TAB.ER.24 (FP) PO SCH ×2 (06:41→16:57)
[2018-10-15] MEDS: INSULIN SLIDING SCALE (NOVOLOG) 1 VIAL SQ SCH ×4 (06:42→21:44)
[2018-10-15] MEDS ORDERED: cefTRIAXone SODIUM 1 GM VIAL ONE (09:24)
[2018-10-15] MEDS ORDERED: PT OWN MED DRAWER 7, Y5N ONE ×2 (09:24→16:50)
[2018-10-15] MEDS ORDERED: DEXTROSE 5%-WATER - 50 ML IVPB ONE (09:25)
[2018-10-15] MEDS: LISINOPRIL 20 MG TABLET (FP) PO SCH (09:28)
[2018-10-15] MEDS: HEPARIN NA (PORCINE) 5,000 UNITS/ML 1ML VIAL SQ SCH ×2 (09:28→21:44)
[2018-10-15] MEDS: CEFTRIAXONE 1 GM in DEXTROSE 5%-WATER - 50 ML IVPB SCH (09:28)
--- NOTE | 2018-10-15 13:25 | PN ---
Progress Note, Physician History of Present Illness: patient stable had an u/s done no complaints - Current Medication List Current Medications: Active Medications Acetaminophen (Tylenol -) 650 mg PO Q6H PRN PRN Reason: PAIN LEVEL 1-5 Last Admin: 10/14/18 22:03 Dose: 650 mg Collagenase (Santyl -) 1 applic TP DAILY [facility]; Protocol Last Admin: 10/14/18 22:31 Dose: 1 applic Gabapentin (Neurontin -) 300 mg PO TID [facility] Last Admin: 10/15/18 06:38 Dose: 300 mg Glipizide (Glucotrol Xl -) 10 mg PO BIDAC [facility] Last Admin: 10/15/18 06:41 Dose: 10 mg Heparin Sodium (Porcine) (Heparin -) 5,000 unit SQ BID [facility] Last Admin: 10/15/18 09:28 Dose: 5,000 unit Ceftriaxone Sodium 1 gm/ (Dextrose) 50 mls @ 100 mls/hr IVPB DAILY [facility]; Protocol Last Admin: 10/15/18 09:28 Dose: 100 mls/hr Insulin Aspart (Novolog Vial Sliding Scale -) 1 vial SQ ACHS [facility]; Protocol Last Admin: 10/15/18 12:27 Dose: 2 units Lisinopril (Prinivil) 20 mg PO DAILY [facility] Last Admin: 10/15/18 09:28 Dose: 20 mg Metformin HCl (Glucophage -) 1,000 mg PO BIDAC [facility] Last Admin: 10/15/18 06:39 Dose: 1,000 mg Sitagliptin Phosphate (Januvia -) 50 mg PO BIDAC [facility] Last Admin: 10/15/18 06:39 Dose: 50 mg - Objective Vital Signs: Vital Signs Temperature 98.2 F 10/15/18 05:00 Pulse Rate 72 10/15/18 09:00 Respiratory Rate 18 10/15/18 09:00 Blood Pressure 126/60 10/15/18 09:00 O2 Sat by Pulse Oximetry (%) 97 10/15/18 09:00 Constitutional: Yes: No Distress, Calm Cardiovascular: Yes: Regular Rate and Rhythm Respiratory: Yes: Regular, CTA Bilaterally Gastrointestinal: Yes: Normal Bowel Sounds, Soft Musculoskeletal: Yes: WNL Extremities: Yes: Other Neurological: Yes: Alert, Oriented Psychiatric: Yes: Alert, Oriented Labs: CBC, BMP 10/13/18 07:57 01/29/19 07:57 - ....Imaging Ultrasound: Image Reviewed (awaiting report) Assessment/Plan Problem List - Problems (1) Diabetic toe ulcer Code(s): E11.621 - TYPE 2 DIABETES MELLITUS WITH FOOT ULCER; L97.509 - NON- PRESSURE CHRONIC ULCER OTH PRT UNSP FOOT W UNSP SEVERITY (2) Diabetes Code(s): E11.9 - TYPE 2 DIABETES MELLITUS WITHOUT COMPLICATIONS (3) HTN (hypertension) Code(s): I10 - ESSENTIAL (PRIMARY) HYPERTENSION wound infection plan conitnue abx will switch to oral once cleared by vascular and podiatry wound care rest as per the team
--- NOTE | 2018-10-15 13:46 | PN ---
Progress Note (short form) - Note Progress Note: FUV right foot wound. vss, Tmax 98.4 wbc improved from outpatient+dry wound, -drainage, Staphylococus Aureus on culture grade 2 wound IVABX as per ID. White to wound 2nd toe right. Will follow till dc. Awaiting vascular study results.
[2018-10-15] MEDS: COLLAGENASE CLOSTRIDIUM HIST. 30 GRAMS TUBE TP SCH (15:00)
--- NOTE | 2018-10-15 17:52 | PN ---
Progress Note, Physician History of Present Illness: No new changes - Current Medication List Current Medications: Active Medications Acetaminophen (Tylenol -) 650 mg PO Q6H PRN PRN Reason: PAIN LEVEL 1-5 Last Admin: 10/14/18 22:03 Dose: 650 mg Collagenase (Santyl -) 1 applic TP DAILY [facility]; Protocol Last Admin: 10/15/18 15:00 Dose: 1 applic Gabapentin (Neurontin -) 300 mg PO TID [facility] Last Admin: 10/15/18 14:04 Dose: 300 mg Glipizide (Glucotrol Xl -) 10 mg PO BIDAC [facility] Last Admin: 10/15/18 16:57 Dose: 10 mg Heparin Sodium (Porcine) (Heparin -) 5,000 unit SQ BID [facility] Last Admin: 10/15/18 09:28 Dose: 5,000 unit Ceftriaxone Sodium 1 gm/ (Dextrose) 50 mls @ 100 mls/hr IVPB DAILY [facility]; Protocol Last Admin: 10/15/18 09:28 Dose: 100 mls/hr Insulin Aspart (Novolog Vial Sliding Scale -) 1 vial SQ ACHS [facility]; Protocol Last Admin: 10/15/18 17:16 Dose: Not Given Lisinopril (Prinivil) 20 mg PO DAILY [facility] Last Admin: 10/15/18 09:28 Dose: 20 mg Metformin HCl (Glucophage -) 1,000 mg PO BIDAC [facility] Last Admin: 10/15/18 16:57 Dose: 1,000 mg Sitagliptin Phosphate (Januvia -) 50 mg PO BIDAC [facility] Last Admin: 10/15/18 16:57 Dose: 50 mg - Objective Vital Signs: Vital Signs Temperature 98.4 F 10/15/18 14:21 Pulse Rate 76 10/15/18 14:21 Respiratory Rate 18 10/15/18 14:21 Blood Pressure 124/73 10/15/18 14:21 O2 Sat by Pulse Oximetry (%) 97 10/15/18 09:00 Neck: Yes: WNL, Supple Cardiovascular: Yes: WNL, Regular Rate and Rhythm Respiratory: Yes: WNL, Regular, CTA Bilaterally Gastrointestinal: Yes: WNL, Normal Bowel Sounds, Soft Extremities: Yes: Other (Rt 2nd toe w/ ulcer) Labs: CBC, BMP 10/13/18 07:57 10/13/18 07:57 Problem List - Problems (1) Diabetic toe ulcer Assessment/Plan: Cont IV antibiotics Follow cultures Await Vascular recommendations Code(s): E11.621 - TYPE 2 DIABETES MELLITUS WITH FOOT ULCER; L97.509 - NON- PRESSURE CHRONIC ULCER OTH PRT UNSP FOOT W UNSP SEVERITY (2) Diabetes Assessment/Plan: Cont metformin/januvia/glybizide Cont sliding scale w/ coverage Code(s): E11.9 - TYPE 2 DIABETES MELLITUS WITHOUT COMPLICATIONS (3) HTN (hypertension) Assessment/Plan: Cont lisinopril Code(s): I10 - ESSENTIAL (PRIMARY) HYPERTENSION
[2018-10-15] MEDS: ACETAMINOPHEN 325 MG TABLET (FP) PO PRN (21:42)
[2018-10-16] MEDS: ACETAMINOPHEN 325 MG TABLET (FP) PO PRN ×2 (02:38→21:32)
[2018-10-16] MEDS: metFORMIN HCL 500 MG TABLET (FP) PO SCH ×2 (06:45→17:27)
[2018-10-16] MEDS: sitaGLIPtin PHOSPHATE 50 MG TABLET PO SCH ×2 (06:46→17:27)
[2018-10-16] MEDS: GABAPENTIN 300 MG CAPSULE (FP) PO SCH ×3 (06:46→21:32)
[2018-10-16] MEDS: INSULIN SLIDING SCALE (NOVOLOG) 1 VIAL SQ SCH ×4 (06:46→21:51)
[2018-10-16] MEDS ORDERED: PT OWN MED DRAWER 7, Y5N ONE ×3 (06:53→18:33)
[2018-10-16] MEDS: glipiZIDE-XL 10 MG TAB.ER.24 (FP) PO SCH ×2 (06:54→17:27)
--- NOTE | 2018-10-16 10:25 | PN ---
Progress Note (short form) - Note Progress Note: FUV right foot wound. vss, Tmax 97.9 +dry wound, -drainage, Staphylococus Aureus on culture, ultrasound reading not available at time of visit grade 2 wound IVABX as per ID. White to wound 2nd toe right. Will follow till dc. Awaiting vascular study results.
[2018-10-16] MEDS ORDERED: cefTRIAXone SODIUM 1 GM VIAL ONE (10:43)
[2018-10-16] MEDS ORDERED: DEXTROSE 5%-WATER - 50 ML IVPB ONE (10:43)
[2018-10-16] MEDS: LISINOPRIL 20 MG TABLET (FP) PO SCH (10:45)
[2018-10-16] MEDS: CEFTRIAXONE 1 GM in DEXTROSE 5%-WATER - 50 ML IVPB SCH (10:45)
[2018-10-16] MEDS: HEPARIN NA (PORCINE) 5,000 UNITS/ML 1ML VIAL SQ SCH ×2 (10:46→22:22)
--- NOTE | 2018-10-16 13:37 | PN ---
Progress Note, Physician History of Present Illness: patient doing well no new issues - Current Medication List Current Medications: Active Medications Acetaminophen (Tylenol -) 650 mg PO Q4H PRN PRN Reason: PAIN LEVEL 1-5 Last Admin: 10/16/18 02:38 Dose: 650 mg Collagenase (Santyl -) 1 applic TP DAILY [facility]; Protocol Last Admin: 10/15/18 15:00 Dose: 1 applic Gabapentin (Neurontin -) 300 mg PO TID [facility] Last Admin: 10/16/18 06:46 Dose: 300 mg Glipizide (Glucotrol Xl -) 10 mg PO BIDAC [facility] Last Admin: 10/16/18 06:54 Dose: 10 mg Heparin Sodium (Porcine) (Heparin -) 5,000 unit SQ BID [facility] Last Admin: 10/16/18 10:46 Dose: 5,000 unit Ceftriaxone Sodium 1 gm/ (Dextrose) 50 mls @ 100 mls/hr IVPB DAILY [facility]; Protocol Last Admin: 10/16/18 10:45 Dose: 100 mls/hr Insulin Aspart (Novolog Vial Sliding Scale -) 1 vial SQ ACHS [facility]; Protocol Last Admin: 10/16/18 12:09 Dose: 2 units Lisinopril (Prinivil) 20 mg PO DAILY [facility] Last Admin: 10/16/18 10:45 Dose: 20 mg Metformin HCl (Glucophage -) 1,000 mg PO BIDAC [facility] Last Admin: 10/16/18 06:45 Dose: 1,000 mg Sitagliptin Phosphate (Januvia -) 50 mg PO BIDAC [facility] Last Admin: 10/16/18 06:46 Dose: 50 mg - Objective Vital Signs: Vital Signs Temperature 97.4 F L 10/16/18 10:40 Pulse Rate 66 10/16/18 10:40 Respiratory Rate 20 10/16/18 10:40 Blood Pressure 123/63 10/16/18 10:40 O2 Sat by Pulse Oximetry (%) 97 10/15/18 21:00 Constitutional: Yes: No Distress, Calm Cardiovascular: Yes: Regular Rate and Rhythm Respiratory: Yes: Regular, CTA Bilaterally Gastrointestinal: Yes: Normal Bowel Sounds, Soft Musculoskeletal: Yes: WNL Extremities: Yes: Other Neurological: Yes: Alert, Oriented Psychiatric: Yes: Alert, Oriented Labs: CBC, BMP 10/13/18 07:57 10/13/18 07:57 Assessment/Plan Problem List - Problems (1) Diabetic toe ulcer Code(s): E11.621 - TYPE 2 DIABETES MELLITUS WITH FOOT ULCER; L97.509 - NON- PRESSURE CHRONIC ULCER OTH PRT UNSP FOOT W UNSP SEVERITY (2) Diabetes Code(s): E11.9 - TYPE 2 DIABETES MELLITUS WITHOUT COMPLICATIONS (3) HTN (hypertension) Code(s): I10 - ESSENTIAL (PRIMARY) HYPERTENSION wound infection plan continue abx will switch to oral abx still awaiting u/s result rest as per the team
[2018-10-16] MEDS: AMOX TR/POT CLAV 875MG/125MG TABLETS (FP) PO SCH (17:27)
--- NOTE | 2018-10-16 18:58 | PN ---
Progress Note (short form) - Note Progress Note: Ultrasound results reviewed. PVD right worse than left. Severe on right. Moderate on left. Awaiting vascular recommendations. Will follow.
[2018-10-16] MEDS: COLLAGENASE CLOSTRIDIUM HIST. 30 GRAMS TUBE TP SCH (19:01)
--- NOTE | 2018-10-16 19:17 | PN ---
Progress Note, Physician History of Present Illness: No new complaints - Current Medication List Current Medications: Active Medications Acetaminophen (Tylenol -) 650 mg PO Q4H PRN PRN Reason: PAIN LEVEL 1-5 Last Admin: 10/16/18 02:38 Dose: 650 mg Amoxicillin/Clavulanate Potassium (Augmentin - 875mg Tablet) 1 tab PO BID@0800, 1730 [facility] Last Admin: 10/16/18 17:27 Dose: 1 tab Collagenase (Santyl -) 1 applic TP DAILY [facility]; Protocol Last Admin: 10/16/18 19:01 Dose: 1 applic Gabapentin (Neurontin -) 300 mg PO TID [facility] Last Admin: 10/16/18 14:48 Dose: 300 mg Glipizide (Glucotrol Xl -) 10 mg PO BIDAC [facility] Last Admin: 10/16/18 17:27 Dose: 10 mg Heparin Sodium (Porcine) (Heparin -) 5,000 unit SQ BID [facility] Last Admin: 10/16/18 10:46 Dose: 5,000 unit Insulin Aspart (Novolog Vial Sliding Scale -) 1 vial SQ ACHS [facility]; Protocol Last Admin: 10/16/18 17:21 Dose: Not Given Lisinopril (Prinivil) 20 mg PO DAILY [facility] Last Admin: 10/16/18 10:45 Dose: 20 mg Metformin HCl (Glucophage -) 1,000 mg PO BIDAC [facility] Last Admin: 10/16/18 17:27 Dose: 1,000 mg Sitagliptin Phosphate (Januvia -) 50 mg PO BIDAC [facility] Last Admin: 10/16/18 17:27 Dose: 50 mg - Objective Vital Signs: Vital Signs Temperature 97.8 F 10/16/18 14:43 Pulse Rate 66 10/16/18 14:43 Respiratory Rate 20 10/16/18 14:43 Blood Pressure 109/56 L 10/16/18 14:43 O2 Sat by Pulse Oximetry (%) 97 10/15/18 21:00 Neck: Yes: WNL, Supple Cardiovascular: Yes: WNL, Regular Rate and Rhythm Respiratory: Yes: WNL, Regular, CTA Bilaterally Gastrointestinal: Yes: WNL, Normal Bowel Sounds, Soft Extremities: Yes: Other (Rt toe w/ chronic ulcer) Labs: CBC, BMP 10/13/18 07:57 10/13/18 07:57 Problem List - Problems (1) Diabetic toe ulcer Assessment/Plan: Cont IV antibiotics Await Vascular recommendations Code(s): E11.621 - TYPE 2 DIABETES MELLITUS WITH FOOT ULCER; L97.509 - NON- PRESSURE CHRONIC ULCER OTH PRT UNSP FOOT W UNSP SEVERITY (2) Diabetes Assessment/Plan: Cont metformin/januvia/glybizide Cont sliding scale w/ coverage Code(s): E11.9 - TYPE 2 DIABETES MELLITUS WITHOUT COMPLICATIONS (3) HTN (hypertension) Assessment/Plan: Cont lisinopril Code(s): I10 - ESSENTIAL (PRIMARY) HYPERTENSION
[2018-10-17] MEDS ORDERED: PT OWN MED DRAWER 7, Y5N ONE ×3 (04:32→10:23)
[2018-10-17] MEDS: GABAPENTIN 300 MG CAPSULE (FP) PO SCH ×3 (06:20→22:20)
[2018-10-17] MEDS: metFORMIN HCL 500 MG TABLET (FP) PO SCH ×2 (06:20→17:43)
[2018-10-17] MEDS: sitaGLIPtin PHOSPHATE 50 MG TABLET PO SCH ×2 (06:21→17:43)
[2018-10-17] MEDS: glipiZIDE-XL 10 MG TAB.ER.24 (FP) PO SCH ×2 (06:21→17:44)
[2018-10-17] MEDS: INSULIN SLIDING SCALE (NOVOLOG) 1 VIAL SQ SCH ×4 (06:23→22:22)
[2018-10-17] MEDS: AMOX TR/POT CLAV 875MG/125MG TABLETS (FP) PO SCH ×2 (08:47→17:42)
[2018-10-17 08:58] LABS: BASO % 0.6 % (0-2.0); EOS % 1.7 % (0-4.5); HEMATOCRIT 39.4 % (32.4-45.2); HEMOGLOBIN 13.4 GM/dL (10.7-15.3); LYMPH % 21.7 % (8-40); MCH 29.6 pg (25.7-33.7); MCHC 33.9 g/dl (32.0-36.0); MEAN CELL VOLUME 87.4 fl (80-96); MEAN PLT VOLUME 8.6 fl (7.5-11.1); MONO % 6.9 % (3.8-10.2); NEUT % 69.1 % (42.8-82.8); PLATELET COUNT 245 K/MM3 (134-434); RBC 4.52 M/mm3 (3.60-5.2); RDW 12.9 % (11.6-15.6); WHITE BLOOD COUNT 11.1 K/mm3 (4.0-10.0)
[2018-10-17 09:31] LABS: ALBUMIN 4.1 g/dl (3.4-5.0); ALK PHOS 78 U/L (45-117); ANION GAP 6 MMOL/L (8-16); BILIRUBIN,TOTAL 0.4 mg/dL (0.2-1); BLOOD UREA NITROGEN 22 mg/dL (7-18); CALCIUM 9.4 mg/dL (8.5-10.1); CHLORIDE 101 mmol/L (98-107); CO2 26 mmol/L (21-32); CREATININE 0.8 mg/dL (0.55-1.3); GLUCOSE,RANDOM 124 mg/dL (74-106); POTASSIUM 5.2 mmol/L (3.5-5.1); SGOT/AST 19 U/L (15-37); SGPT/ALT 28 U/L (13-61); SODIUM 133 mmol/L (136-145); TOT PROT 7.8 g/dl (6.4-8.2)
[2018-10-17] MEDS: LISINOPRIL 20 MG TABLET (FP) PO SCH (10:43)
[2018-10-17] MEDS: HEPARIN NA (PORCINE) 5,000 UNITS/ML 1ML VIAL SQ SCH ×2 (10:43→22:20)
--- NOTE | 2018-10-17 14:02 | PN ---
Progress Note (short form) - Note Progress Note: FU right foot. Reviewed results with patient. PVD right worse than left. Severe on right. Moderate on left. PVD wound. Will follow. Awaiting vascular recommendations. Abx as per ID.
--- NOTE | 2018-10-17 14:56 | PN ---
Progress Note, Physician History of Present Illness: Pt seen and examined. Events noted. She states she feels well, denying pain at this time. Remains afebrile. - Current Medication List Current Medications: Active Medications Acetaminophen (Tylenol -) 650 mg PO Q4H PRN PRN Reason: PAIN LEVEL 1-5 Last Admin: 10/16/18 21:32 Dose: 650 mg Amoxicillin/Clavulanate Potassium (Augmentin - 875mg Tablet) 1 tab PO BID@0800, 1730 [facility] Last Admin: 10/17/18 08:47 Dose: 1 tab Collagenase (Santyl -) 1 applic TP DAILY [facility]; Protocol Last Admin: 10/16/18 19:01 Dose: 1 applic Gabapentin (Neurontin -) 300 mg PO TID [facility] Last Admin: 10/17/18 13:30 Dose: 300 mg Glipizide (Glucotrol Xl -) 10 mg PO BIDAC [facility] Last Admin: 10/17/18 06:21 Dose: 10 mg Heparin Sodium (Porcine) (Heparin -) 5,000 unit SQ BID [facility] Last Admin: 10/17/18 10:43 Dose: 5,000 unit Insulin Aspart (Novolog Vial Sliding Scale -) 1 vial SQ ACHS [facility]; Protocol Last Admin: 10/17/18 11:29 Dose: 2 units Lisinopril (Prinivil) 20 mg PO DAILY [facility] Last Admin: 10/17/18 10:43 Dose: 20 mg Metformin HCl (Glucophage -) 1,000 mg PO BIDAC [facility] Last Admin: 10/17/18 06:20 Dose: 1,000 mg Sitagliptin Phosphate (Januvia -) 50 mg PO BIDAC [facility] Last Admin: 10/17/18 06:21 Dose: 50 mg - Objective Vital Signs: Vital Signs Temperature 97.5 F L 10/17/18 06:00 Pulse Rate 68 10/17/18 10:00 Respiratory Rate 18 10/17/18 10:00 Blood Pressure 146/82 10/17/18 10:00 O2 Sat by Pulse Oximetry (%) 98 10/17/18 09:00 Constitutional: Yes: No Distress, Calm Cardiovascular: Yes: Regular Rate and Rhythm Respiratory: Yes: Regular Gastrointestinal: Yes: Normal Bowel Sounds, Soft Genitourinary: Yes: WNL Wound/Incision: Yes: Other (toe ulcer without drainage/tenderness) Labs: CBC, BMP 10/17/18 07:50 10/17/18 07:50 Microbiology 10/12/18 20:27 Blood - Peripheral Venous Blood Culture - Preliminary NO GROWTH OBTAINED AFTER 96 HOURS, INCUBATION TO CONTINUE FOR 1 DAYS. 10/12/18 20:27 Blood - Peripheral Venous Blood Culture - Preliminary NO GROWTH OBTAINED AFTER 96 HOURS, INCUBATION TO CONTINUE FOR 1 DAYS. 10/12/18 20:27 Ulcer Gram Stain - Final 10/12/18 20:27 Ulcer Wound Culture - Final Staphylococcus Aureus - ....Imaging Ultrasound: Report Reviewed Problem List - Problems (1) Diabetes Code(s): E11.9 - TYPE 2 DIABETES MELLITUS WITHOUT COMPLICATIONS (2) Diabetic toe ulcer Code(s): E11.621 - TYPE 2 DIABETES MELLITUS WITH FOOT ULCER; L97.509 - NON- PRESSURE CHRONIC ULCER OTH PRT UNSP FOOT W UNSP SEVERITY (3) HTN (hypertension) Code(s): I10 - ESSENTIAL (PRIMARY) HYPERTENSION Assessment/Plan Rt Diabetic toe ulcer/infection - Staph aureus isolated DM PVD/ Arterial insufficiency -- continue Augmentin -- Vascular follow up, awaiting recommendations -- continue wound care
[2018-10-17] MEDS: COLLAGENASE CLOSTRIDIUM HIST. 30 GRAMS TUBE TP SCH (15:27)
--- NOTE | 2018-10-17 16:36 | PN ---
Progress Note, Physician History of Present Illness: No new complaints - Current Medication List Current Medications: Active Medications Acetaminophen (Tylenol -) 650 mg PO Q4H PRN PRN Reason: PAIN LEVEL 1-5 Last Admin: 10/16/18 21:32 Dose: 650 mg Amoxicillin/Clavulanate Potassium (Augmentin - 875mg Tablet) 1 tab PO BID@0800, 1730 [facility] Last Admin: 10/17/18 08:47 Dose: 1 tab Collagenase (Santyl -) 1 applic TP DAILY [facility]; Protocol Last Admin: 10/17/18 15:27 Dose: 1 applic Gabapentin (Neurontin -) 300 mg PO TID [facility] Last Admin: 10/17/18 13:30 Dose: 300 mg Glipizide (Glucotrol Xl -) 10 mg PO BIDAC [facility] Last Admin: 10/17/18 06:21 Dose: 10 mg Heparin Sodium (Porcine) (Heparin -) 5,000 unit SQ BID [facility] Last Admin: 10/17/18 10:43 Dose: 5,000 unit Insulin Aspart (Novolog Vial Sliding Scale -) 1 vial SQ ACHS [facility]; Protocol Last Admin: 10/17/18 11:29 Dose: 2 units Lisinopril (Prinivil) 20 mg PO DAILY [facility] Last Admin: 10/17/18 10:43 Dose: 20 mg Metformin HCl (Glucophage -) 1,000 mg PO BIDAC [facility] Last Admin: 10/17/18 06:20 Dose: 1,000 mg Sitagliptin Phosphate (Januvia -) 50 mg PO BIDAC [facility] Last Admin: 10/17/18 06:21 Dose: 50 mg - Objective Vital Signs: Vital Signs Temperature 98.2 F 10/17/18 15:16 Pulse Rate 66 10/17/18 15:16 Respiratory Rate 20 10/17/18 15:16 Blood Pressure 136/62 10/17/18 15:16 O2 Sat by Pulse Oximetry (%) 98 10/17/18 09:00 Neck: Yes: WNL, Supple Cardiovascular: Yes: WNL, Regular Rate and Rhythm Respiratory: Yes: WNL, Regular, CTA Bilaterally Gastrointestinal: Yes: WNL, Normal Bowel Sounds, Soft Extremities: Yes: Other (Rt toe w/ ulcer(dry)) Labs: CBC, BMP 10/17/18 07:50 10/17/18 07:50 Problem List - Problems (1) Diabetic toe ulcer Assessment/Plan: Cont IV antibiotics US showed PVD RLE Await Vascular recommendations Code(s): E11.621 - TYPE 2 DIABETES MELLITUS WITH FOOT ULCER; L97.509 - NON- PRESSURE CHRONIC ULCER OTH PRT UNSP FOOT W UNSP SEVERITY (2) Diabetes Code(s): E11.9 - TYPE 2 DIABETES MELLITUS WITHOUT COMPLICATIONS (3) HTN (hypertension) Code(s): I10 - ESSENTIAL (PRIMARY) HYPERTENSION
[2018-10-17] MEDS: ACETAMINOPHEN 325 MG TABLET (FP) PO PRN (22:26)
[2018-10-18] MEDS: GABAPENTIN 300 MG CAPSULE (FP) PO SCH ×3 (06:34→22:03)
[2018-10-18] MEDS: sitaGLIPtin PHOSPHATE 50 MG TABLET PO SCH ×2 (06:34→16:48)
[2018-10-18] MEDS: glipiZIDE-XL 10 MG TAB.ER.24 (FP) PO SCH ×2 (06:34→16:48)
[2018-10-18] MEDS: metFORMIN HCL 500 MG TABLET (FP) PO SCH ×2 (06:34→16:48)
[2018-10-18] MEDS: INSULIN SLIDING SCALE (NOVOLOG) 1 VIAL SQ SCH ×4 (06:36→22:03)
[2018-10-18] MEDS: AMOX TR/POT CLAV 875MG/125MG TABLETS (FP) PO SCH ×2 (09:10→17:41)
[2018-10-18] MEDS: HEPARIN NA (PORCINE) 5,000 UNITS/ML 1ML VIAL SQ SCH ×2 (09:37→22:03)
[2018-10-18] MEDS: LISINOPRIL 20 MG TABLET (FP) PO SCH (09:37)
--- NOTE | 2018-10-18 13:12 | PN ---
Progress Note (short form) - Note Progress Note: FU right foot. +unchanged wound right foot, -drainage, +dry PVD wound. Will follow. Awaiting vascular. Abx as per ID.
[2018-10-18] MEDS: COLLAGENASE CLOSTRIDIUM HIST. 30 GRAMS TUBE TP SCH (14:18)
--- NOTE | 2018-10-18 15:24 | PN ---
Progress Note, Physician History of Present Illness: Pt clinically stable, afebrile. Denies any foot pain. Tolerating antibiotics. - Current Medication List Current Medications: Active Medications Acetaminophen (Tylenol -) 650 mg PO Q4H PRN PRN Reason: PAIN LEVEL 1-5 Last Admin: 10/17/18 22:26 Dose: 650 mg Amoxicillin/Clavulanate Potassium (Augmentin - 875mg Tablet) 1 tab PO BID@0800, 1730 [facility] Last Admin: 10/18/18 09:10 Dose: 1 tab Collagenase (Santyl -) 1 applic TP DAILY [facility]; Protocol Last Admin: 10/18/18 14:18 Dose: 1 applic Gabapentin (Neurontin -) 300 mg PO TID [facility] Last Admin: 10/18/18 14:17 Dose: 300 mg Glipizide (Glucotrol Xl -) 10 mg PO BIDAC [facility] Last Admin: 10/18/18 06:34 Dose: 10 mg Heparin Sodium (Porcine) (Heparin -) 5,000 unit SQ BID [facility] Last Admin: 10/18/18 09:37 Dose: 5,000 unit Insulin Aspart (Novolog Vial Sliding Scale -) 1 vial SQ ACHS [facility]; Protocol Last Admin: 10/18/18 11:18 Dose: Not Given Lisinopril (Prinivil) 20 mg PO DAILY [facility] Last Admin: 10/18/18 09:37 Dose: 20 mg Metformin HCl (Glucophage -) 1,000 mg PO BIDAC [facility] Last Admin: 10/18/18 06:34 Dose: 1,000 mg Sitagliptin Phosphate (Januvia -) 50 mg PO BIDAC [facility] Last Admin: 10/18/18 06:34 Dose: 50 mg - Objective Vital Signs: Vital Signs Temperature 98.0 F 10/18/18 09:02 Pulse Rate 66 10/18/18 09:02 Respiratory Rate 18 10/18/18 09:02 Blood Pressure 122/67 10/18/18 09:02 O2 Sat by Pulse Oximetry (%) 97 10/18/18 10:00 Constitutional: Yes: No Distress, Calm Cardiovascular: Yes: Regular Rate and Rhythm Respiratory: Yes: Regular Gastrointestinal: Yes: Normal Bowel Sounds, Soft Wound/Incision: Yes: Other (dressing intact, no tenderness) Neurological: Yes: Alert Labs: CBC, BMP 10/17/18 07:50 10/17/18 07:50 Microbiology 10/12/18 20:27 Blood - Peripheral Venous Blood Culture - Final NO GROWTH AFTER 5 DAYS INCUBATION 10/12/18 20:27 Blood - Peripheral Venous Blood Culture - Final NO GROWTH AFTER 5 DAYS INCUBATION 10/12/18 20:27 Ulcer Gram Stain - Final 10/12/18 20:27 Ulcer Wound Culture - Final Staphylococcus Aureus Problem List - Problems (1) Diabetes Code(s): E11.9 - TYPE 2 DIABETES MELLITUS WITHOUT COMPLICATIONS (2) Diabetic toe ulcer Code(s): E11.621 - TYPE 2 DIABETES MELLITUS WITH FOOT ULCER; L97.509 - NON- PRESSURE CHRONIC ULCER OTH PRT UNSP FOOT W UNSP SEVERITY (3) HTN (hypertension) Code(s): I10 - ESSENTIAL (PRIMARY) HYPERTENSION Assessment/Plan Rt Diabetic toe ulcer infection - Staph aureus DM PVD/ Arterial insufficiency -- continue Augmentin, tolerating well -- Vascular to follow up -- continue wound care
[2018-10-18] MEDS ORDERED: PT OWN MED DRAWER 7, Y5N ONE ×2 (16:43→20:57)
[2018-10-18] MEDS: ACETAMINOPHEN 325 MG TABLET (FP) PO PRN ×2 (16:47→22:01)
[2018-10-18] MEDS ORDERED: INSULIN (NOVOLOG) ASPART 100 UNITS/ML 10ML VIAL ONE (20:56)
--- NOTE | 2018-10-18 23:30 | PN ---
Progress Note, Physician History of Present Illness: No new complaints - Current Medication List Current Medications: Active Medications Acetaminophen (Tylenol -) 650 mg PO Q4H PRN PRN Reason: PAIN LEVEL 1-5 Last Admin: 10/18/18 22:01 Dose: 650 mg Amoxicillin/Clavulanate Potassium (Augmentin - 875mg Tablet) 1 tab PO BID@0800, 1730 [facility] Last Admin: 10/18/18 17:41 Dose: 1 tab Collagenase (Santyl -) 1 applic TP DAILY [facility]; Protocol Last Admin: 10/18/18 14:18 Dose: 1 applic Gabapentin (Neurontin -) 300 mg PO TID [facility] Last Admin: 10/18/18 22:03 Dose: 300 mg Glipizide (Glucotrol Xl -) 10 mg PO BIDAC [facility] Last Admin: 10/18/18 16:48 Dose: 10 mg Heparin Sodium (Porcine) (Heparin -) 5,000 unit SQ BID [facility] Last Admin: 10/18/18 22:03 Dose: 5,000 unit Insulin Aspart (Novolog Vial Sliding Scale -) 1 vial SQ ACHS [facility]; Protocol Last Admin: 10/18/18 22:03 Dose: Not Given Lisinopril (Prinivil) 20 mg PO DAILY [facility] Last Admin: 10/18/18 09:37 Dose: 20 mg Metformin HCl (Glucophage -) 1,000 mg PO BIDAC [facility] Last Admin: 10/18/18 16:48 Dose: 1,000 mg Sitagliptin Phosphate (Januvia -) 50 mg PO BIDAC [facility] Last Admin: 10/18/18 16:48 Dose: 50 mg - Objective Vital Signs: Vital Signs Temperature 97.8 F 10/18/18 18:33 Pulse Rate 71 10/18/18 18:33 Respiratory Rate 20 10/18/18 18:33 Blood Pressure 107/55 L 10/18/18 18:33 O2 Sat by Pulse Oximetry (%) 97 10/18/18 10:00 Neck: Yes: WNL, Supple Cardiovascular: Yes: WNL, Regular Rate and Rhythm Respiratory: Yes: WNL, Regular, CTA Bilaterally Gastrointestinal: Yes: WNL, Normal Bowel Sounds, Soft Labs: CBC, BMP 10/17/18 07:50 10/17/18 07:50 Problem List - Problems (1) Diabetic toe ulcer Assessment/Plan: Cont IV antibiotics Culture showes MSSA Await Vascular recommendations Code(s): E11.621 - TYPE 2 DIABETES MELLITUS WITH FOOT ULCER; L97.509 - NON- PRESSURE CHRONIC ULCER OTH PRT UNSP FOOT W UNSP SEVERITY (2) Diabetes Assessment/Plan: Cont metformin/januvia/glybizide Cont sliding scale w/ coverage Code(s): E11.9 - TYPE 2 DIABETES MELLITUS WITHOUT COMPLICATIONS (3) HTN (hypertension) Assessment/Plan: Cont lisinopril Code(s): I10 - ESSENTIAL (PRIMARY) HYPERTENSION
[2018-10-19] MEDS: metFORMIN HCL 500 MG TABLET (FP) PO SCH ×2 (06:23→16:56)
[2018-10-19] MEDS: glipiZIDE-XL 10 MG TAB.ER.24 (FP) PO SCH ×2 (06:23→16:58)
[2018-10-19] MEDS: GABAPENTIN 300 MG CAPSULE (FP) PO SCH ×3 (06:23→21:01)
[2018-10-19] MEDS: sitaGLIPtin PHOSPHATE 50 MG TABLET PO SCH ×2 (06:23→16:56)
[2018-10-19] MEDS: INSULIN SLIDING SCALE (NOVOLOG) 1 VIAL SQ SCH ×4 (06:24→21:09)
[2018-10-19 07:43] LABS: BASO % 0.6 % (0-2.0); EOS % 1.4 % (0-4.5); HEMOGLOBIN 12.4 GM/dL (10.7-15.3); LYMPH % 19.9 % (8-40); MCH 30.1 pg (25.7-33.7); MCHC 34.5 g/dl (32.0-36.0); MEAN CELL VOLUME 87.1 fl (80-96); MEAN PLT VOLUME 8.4 fl (7.5-11.1); MONO % 8.1 % (3.8-10.2); PLATELET COUNT 224 K/MM3 (134-434); RBC 4.14 M/mm3 (3.60-5.2); WHITE BLOOD COUNT 10.2 K/mm3 (4.0-10.0)
[2018-10-19] MEDS: AMOX TR/POT CLAV 875MG/125MG TABLETS (FP) PO SCH ×2 (08:28→17:53)
--- NOTE | 2018-10-19 08:57 | PN ---
Progress Note (short form) - Note Progress Note: Vascular Surgery Right foot toe wound. LEMUEL/PVR shows disease in tibial vessels. Right greater than left. please medically clear for RLE angiogram. Cont santyl to wound. Will plan for gino afternoon. Se Tellez DO
[2018-10-19] MEDS ORDERED: PT OWN MED DRAWER 7, Y5N ONE ×2 (10:44→16:58)
[2018-10-19] MEDS: COLLAGENASE CLOSTRIDIUM HIST. 30 GRAMS TUBE TP SCH (10:45)
[2018-10-19] MEDS: LISINOPRIL 20 MG TABLET (FP) PO SCH (10:48)
[2018-10-19] MEDS: HEPARIN NA (PORCINE) 5,000 UNITS/ML 1ML VIAL SQ SCH ×2 (10:48→21:01)
--- NOTE | 2018-10-19 12:07 | SPA.PREOP ---
- PRE-OP NOTE Dx: RLE arterial stenosis Planned Procedure: Rt leg angiogram possible plasty/stent Surgeon: Se Tellez, DO Last Vital Signs Temp Pulse Resp BP Pulse Ox 98.1 F 68 20 136/72 98 10/19/18 09:40 10/19/18 09:40 10/19/18 09:40 10/19/18 09:40 10/19/18 09:00 Lab Results WBC 10.2 K/mm3 (4.0-10.0) H 10/19/18 07:00 RBC 4.14 M/mm3 (3.60-5.2) 10/19/18 07:00 Hgb 12.4 GM/dL (10.7-15.3) 10/19/18 07:00 Hct 36.0 % (32.4-45.2) 10/19/18 07:00 MCV 87.1 fl (80-96) 10/19/18 07:00 MCHC 34.5 g/dl (32.0-36.0) 10/19/18 07:00 RDW 13.0 % (11.6-15.6) 10/19/18 07:00 Plt Count 224 K/MM3 (134-434) 10/19/18 07:00 Sodium 133 mmol/L (136-145) L 10/17/18 07:50 Potassium 5.2 mmol/L (3.5-5.1) H 10/17/18 07:50 Chloride 101 mmol/L (98-107) 10/17/18 07:50 Carbon Dioxide 26 mmol/L (21-32) 10/17/18 07:50 Anion Gap 6 MMOL/L (8-16) L 10/17/18 07:50 BUN 22 mg/dL (7-18) H 10/17/18 07:50 Creatinine 0.8 mg/dL (0.55-1.3) 10/17/18 07:50 Random Glucose 124 mg/dL (74-106) H 10/17/18 07:50 Calcium 9.4 mg/dL (8.5-10.1) 10/17/18 07:50 - ASSESSMENT/PLAN 1. Make NPO after midnight except po meds 2. GI/DVT PPX 3. Medical optimization / clearance 4. Consent to be obtained by surgeon after risks, benefits and alternatives discussed with patient and or Health Care Proxy. Problem List - Problems (1) Diabetic toe ulcer Code(s): E11.621 - TYPE 2 DIABETES MELLITUS WITH FOOT ULCER; L97.509 - NON- PRESSURE CHRONIC ULCER OTH PRT UNSP FOOT W UNSP SEVERITY
--- NOTE | 2018-10-19 13:27 | PN ---
Progress Note, Physician History of Present Illness: stable no complaints plan for angio - Current Medication List Current Medications: Active Medications Acetaminophen (Tylenol -) 650 mg PO Q4H PRN PRN Reason: PAIN LEVEL 1-5 Last Admin: 10/18/18 22:01 Dose: 650 mg Amoxicillin/Clavulanate Potassium (Augmentin - 875mg Tablet) 1 tab PO BID@0800, 1730 [facility] Last Admin: 10/19/18 08:28 Dose: 1 tab Collagenase (Santyl -) 1 applic TP DAILY [facility]; Protocol Last Admin: 10/19/18 10:45 Dose: 1 applic Gabapentin (Neurontin -) 300 mg PO TID [facility] Last Admin: 10/19/18 06:23 Dose: 300 mg Glipizide (Glucotrol Xl -) 10 mg PO BIDAC [facility] Last Admin: 10/19/18 06:23 Dose: 10 mg Heparin Sodium (Porcine) (Heparin -) 5,000 unit SQ BID [facility] Last Admin: 10/19/18 10:48 Dose: 5,000 unit Insulin Aspart (Novolog Vial Sliding Scale -) 1 vial SQ ACHS [facility]; Protocol Last Admin: 10/19/18 11:09 Dose: Not Given Lisinopril (Prinivil) 20 mg PO DAILY [facility] Last Admin: 10/19/18 10:48 Dose: 20 mg Metformin HCl (Glucophage -) 1,000 mg PO BIDAC [facility] Last Admin: 10/19/18 06:23 Dose: 1,000 mg Sitagliptin Phosphate (Januvia -) 50 mg PO BIDAC [facility] Last Admin: 10/19/18 06:23 Dose: 50 mg - Objective Vital Signs: Vital Signs Temperature 98.1 F 10/19/18 09:40 Pulse Rate 68 10/19/18 09:40 Respiratory Rate 20 10/19/18 09:40 Blood Pressure 136/72 10/19/18 09:40 O2 Sat by Pulse Oximetry (%) 98 10/19/18 09:00 Constitutional: Yes: No Distress, Calm Cardiovascular: Yes: S1, S2 Respiratory: Yes: Regular, CTA Bilaterally Gastrointestinal: Yes: Normal Bowel Sounds, Soft Musculoskeletal: Yes: WNL Extremities: Yes: Other Wound/Incision: Yes: Clean/Dry Neurological: Yes: Alert, Oriented Psychiatric: Yes: Alert, Oriented Labs: CBC, BMP 10/19/18 07:00 10/17/18 07:50 Assessment/Plan Problem List - Problems (1) Diabetic toe ulcer Code(s): E11.621 - TYPE 2 DIABETES MELLITUS WITH FOOT ULCER; L97.509 - NON- PRESSURE CHRONIC ULCER OTH PRT UNSP FOOT W UNSP SEVERITY (2) Diabetes Code(s): E11.9 - TYPE 2 DIABETES MELLITUS WITHOUT COMPLICATIONS (3) HTN (hypertension) Code(s): I10 - ESSENTIAL (PRIMARY) HYPERTENSION wound infection plan continue current mgmt plan for angio rest as per the team and vascular
[2018-10-19 14:24] VITALS: BMI 30.5
--- NOTE | 2018-10-19 22:33 | PN ---
Progress Note, Physician History of Present Illness: No new complaints - Current Medication List Current Medications: Active Medications Acetaminophen (Tylenol -) 650 mg PO Q4H PRN PRN Reason: PAIN LEVEL 1-5 Last Admin: 10/18/18 22:01 Dose: 650 mg Amoxicillin/Clavulanate Potassium (Augmentin - 875mg Tablet) 1 tab PO BID@0800, 1730 [facility] Last Admin: 10/19/18 17:53 Dose: 1 tab Collagenase (Santyl -) 1 applic TP DAILY [facility]; Protocol Last Admin: 10/19/18 10:45 Dose: 1 applic Gabapentin (Neurontin -) 300 mg PO TID [facility] Last Admin: 10/19/18 21:01 Dose: 300 mg Glipizide (Glucotrol Xl -) 10 mg PO BIDAC [facility] Last Admin: 10/19/18 16:58 Dose: 10 mg Heparin Sodium (Porcine) (Heparin -) 5,000 unit SQ BID [facility] Last Admin: 10/19/18 21:01 Dose: 5,000 unit Insulin Aspart (Novolog Vial Sliding Scale -) 1 vial SQ ACHS [facility]; Protocol Last Admin: 10/19/18 21:09 Dose: Not Given Lisinopril (Prinivil) 20 mg PO DAILY [facility] Last Admin: 10/19/18 10:48 Dose: 20 mg Metformin HCl (Glucophage -) 1,000 mg PO BIDAC [facility] Last Admin: 10/19/18 16:56 Dose: 1,000 mg Sitagliptin Phosphate (Januvia -) 50 mg PO BIDAC [facility] Last Admin: 10/19/18 16:56 Dose: 50 mg - Objective Vital Signs: Vital Signs Temperature 97.5 F L 10/19/18 18:20 Pulse Rate 67 10/19/18 18:20 Respiratory Rate 20 10/19/18 18:20 Blood Pressure 124/61 10/19/18 18:20 O2 Sat by Pulse Oximetry (%) 98 10/19/18 09:00 Neck: Yes: WNL, Supple Cardiovascular: Yes: WNL, Regular Rate and Rhythm Respiratory: Yes: WNL, Regular, CTA Bilaterally Gastrointestinal: Yes: WNL, Normal Bowel Sounds, Soft Extremities: Yes: Other (Rt toe ulcer) Labs: CBC, BMP 10/19/18 07:00 10/17/18 07:50 Problem List - Problems (1) Diabetic toe ulcer Assessment/Plan: Cont augmentin US showed PVD RLE Pt scheduled for RLE angio tomorrow w/ possible angioplasty/stent Labs pending At this time pt is medically cleared for procedure Code(s): E11.621 - TYPE 2 DIABETES MELLITUS WITH FOOT ULCER; L97.509 - NON- PRESSURE CHRONIC ULCER OTH PRT UNSP FOOT W UNSP SEVERITY (2) Diabetes Assessment/Plan: Cont metformin/januvia/glybizide Cont sliding scale w/ coverage Code(s): E11.9 - TYPE 2 DIABETES MELLITUS WITHOUT COMPLICATIONS (3) HTN (hypertension) Assessment/Plan: Cont lisinopril Code(s): I10 - ESSENTIAL (PRIMARY) HYPERTENSION
[2018-10-20] MEDS: GABAPENTIN 300 MG CAPSULE (FP) PO SCH ×3 (05:43→22:23)
[2018-10-20] MEDS: glipiZIDE-XL 10 MG TAB.ER.24 (FP) PO SCH ×2 (06:02→16:23)
[2018-10-20] MEDS: INSULIN SLIDING SCALE (NOVOLOG) 1 VIAL SQ SCH ×4 (06:02→22:22)
[2018-10-20] MEDS: sitaGLIPtin PHOSPHATE 50 MG TABLET PO SCH ×2 (06:02→16:23)
[2018-10-20] MEDS: metFORMIN HCL 500 MG TABLET (FP) PO SCH ×2 (06:02→16:23)
[2018-10-20 08:18] LABS: BASO % 0.7 % (0-2.0); EOS % 1.4 % (0-4.5); HEMATOCRIT 40.7 % (32.4-45.2); HEMOGLOBIN 14.1 GM/dL (10.7-15.3); LYMPH % 19.1 % (8-40); MCH 30.7 pg (25.7-33.7); MCHC 34.7 g/dl (32.0-36.0); MEAN CELL VOLUME 88.5 fl (80-96); MEAN PLT VOLUME 8.5 fl (7.5-11.1); MONO % 7.8 % (3.8-10.2); PLATELET COUNT 235 K/MM3 (134-434); RDW 12.9 % (11.6-15.6); WHITE BLOOD COUNT 8.5 K/mm3 (4.0-10.0)
[2018-10-20] MEDS: AMOX TR/POT CLAV 875MG/125MG TABLETS (FP) PO SCH ×2 (08:30→16:45)
[2018-10-20] MEDS ORDERED: DEXTROSE 5%-0.45% SALINE 1,000 ML IV SCH ×2 (08:45→18:31)
[2018-10-20 08:48] LABS: INR 0.99 (0.83-1.09); PROTHROMBIN TIME (PATIENT) 11.7 SEC (9.7-13.0)
[2018-10-20 08:52] LABS: ALBUMIN 4.1 g/dl (3.4-5.0); ALK PHOS 70 U/L (45-117); ANION GAP 6 MMOL/L (8-16); BILIRUBIN,TOTAL 0.5 mg/dL (0.2-1); BLOOD UREA NITROGEN 25 mg/dL (7-18); CALCIUM 9.5 mg/dL (8.5-10.1); CHLORIDE 101 mmol/L (98-107); CO2 26 mmol/L (21-32); CREATININE 0.9 mg/dL (0.55-1.3); GLUCOSE,RANDOM 114 mg/dL (74-106); POTASSIUM 4.8 mmol/L (3.5-5.1); SGOT/AST 27 U/L (15-37); SGPT/ALT 45 U/L (13-61); SODIUM 134 mmol/L (136-145); TOT PROT 7.6 g/dl (6.4-8.2)
[2018-10-20] MEDS: HEPARIN NA (PORCINE) 5,000 UNITS/ML 1ML VIAL SQ SCH ×2 (10:24→22:24)
[2018-10-20] MEDS: LISINOPRIL 20 MG TABLET (FP) PO SCH (10:26)
[2018-10-20] MEDS: COLLAGENASE CLOSTRIDIUM HIST. 30 GRAMS TUBE TP SCH (10:27)
--- NOTE | 2018-10-20 11:46 | PN ---
Progress Note (short form) - Note Progress Note: FU right foot. +unchanged wound right foot, -drainage, +dry PVD wound. Will follow. Angiogram today. Abx as per ID. will follow.
--- NOTE | 2018-10-20 13:03 | PN ---
Progress Note, Physician - Current Medication List Current Medications: Active Medications Acetaminophen (Tylenol -) 650 mg PO Q4H PRN PRN Reason: PAIN LEVEL 1-5 Last Admin: 10/18/18 22:01 Dose: 650 mg Amoxicillin/Clavulanate Potassium (Augmentin - 875mg Tablet) 1 tab PO BID@0800, 1730 [facility] Last Admin: 10/20/18 08:30 Dose: Not Given Collagenase (Santyl -) 1 applic TP DAILY [facility]; Protocol Last Admin: 10/20/18 10:27 Dose: 1 applic Gabapentin (Neurontin -) 300 mg PO TID [facility] Last Admin: 10/20/18 05:43 Dose: 300 mg Glipizide (Glucotrol Xl -) 10 mg PO BIDAC [facility] Last Admin: 10/20/18 06:02 Dose: Not Given Heparin Sodium (Porcine) (Heparin -) 5,000 unit SQ BID [facility] Last Admin: 10/20/18 10:24 Dose: 5,000 unit Dextrose/Sodium Chloride (D5-1/2ns -) 1,000 mls @ 75 mls/hr IV ASDIR [facility] Last Admin: 10/20/18 10:21 Dose: 75 mls/hr Insulin Aspart (Novolog Vial Sliding Scale -) 1 vial SQ ACHS [facility]; Protocol Last Admin: 10/20/18 11:31 Dose: Not Given Lisinopril (Prinivil) 20 mg PO DAILY [facility] Last Admin: 10/20/18 10:26 Dose: 20 mg Metformin HCl (Glucophage -) 1,000 mg PO BIDAC [facility] Last Admin: 10/20/18 06:02 Dose: Not Given Sitagliptin Phosphate (Januvia -) 50 mg PO BIDAC [facility] Last Admin: 10/20/18 06:02 Dose: Not Given - Objective Vital Signs: Vital Signs Temperature 97.9 F 10/20/18 10:00 Pulse Rate 64 10/20/18 10:00 Respiratory Rate 18 10/20/18 10:00 Blood Pressure 129/72 10/20/18 10:00 O2 Sat by Pulse Oximetry (%) 99 10/20/18 10:00 Labs: CBC, BMP 10/20/18 07:00 10/20/18 07:00 INR, PTT INR 0.99 (0.83-1.09) 10/20/18 07:00
[2018-10-20] MEDS ORDERED: HEPARIN NA (PORCINE) 5,000 UNITS/ML 1ML VIAL ONE (13:21)
[2018-10-20] MEDS ORDERED: LIDOCAINE HCL 1%, 10 MG/ML (20ML VIAL) ONE (13:59)
[2018-10-20] MEDS ORDERED: MIDAZOLAM HCL 2 MG/2 ML SINGLE DOSE VIAL ONE (16:15)
[2018-10-20] MEDS ORDERED: ONDANSETRON 4 MG/2 ML VIAL IVPUSH PRN ×2 (16:47→18:31)
[2018-10-20] MEDS ORDERED: PROMETHAZINE HCL 25 MG/1 ML VIAL IVPUSH PRN ×2 (16:47→18:31)
[2018-10-20] MEDS ORDERED: oxyCODONE HCL 5 MG TABLET PO PRN ×2 (16:47→18:31)
[2018-10-20] MEDS ORDERED: ePHEDrine SULFATE 50 MG/1 ML AMPULE ONE (17:05)
[2018-10-20] MEDS ORDERED: ceFAZolin SODIUM 1 GM VIAL IVPB ONE (17:16)
[2018-10-20] MEDS ORDERED: PROPOFOL 20 ML ONE ×2 (17:29→17:54)
--- NOTE | 2018-10-20 18:27 | OP ---
Operative Note - Note: Operative Date: 10/20/18 Pre-Operative Diagnosis: Right second toe gangrene Operation: Aortogram, RLE angiogram, SFA angioplasty with stent Findings: SFA occlusion for 25cm Post-Operative Diagnosis: Same as Pre-op Surgeon: Se Tellez Anesthesia: Fractional Estimated Blood Loss (mls): 50 Operative Report Dictated: Yes
--- NOTE | 2018-10-20 18:30 | PN ---
Progress Note (short form) - Note Progress Note: Vascular surgery S/P angioplasty with stent placement. Pt cleared from DC on fri from vascular standpoint. Pt should be DC home on plavix daily. Follow up in clinic in one week. call for appt -- [phone] Christopher to wound daily. Se Tellez DO
[2018-10-20] MEDS ORDERED: CLOPIDOGREL BISULFATE 75 MG TABLET (FP) PO ONE (18:35)
--- NOTE | 2018-10-20 20:36 | PN ---
Progress Note, Physician History of Present Illness: No new complaints - Current Medication List Current Medications: Active Medications Acetaminophen (Tylenol -) 650 mg PO Q4H PRN PRN Reason: PAIN LEVEL 1-5 Amoxicillin/Clavulanate Potassium (Augmentin - 875mg Tablet) 1 tab PO BID@0800, 1730 [facility] Clopidogrel Bisulfate (Plavix -) 75 mg PO DAILY [facility] Collagenase (Santyl -) 1 applic TP DAILY [facility]; Protocol Gabapentin (Neurontin -) 300 mg PO TID [facility] Glipizide (Glucotrol Xl -) 10 mg PO BIDAC [facility] Heparin Sodium (Porcine) (Heparin -) 5,000 unit SQ BID [facility] Dextrose/Sodium Chloride (D5-1/2ns -) 1,000 mls @ 75 mls/hr IV ASDIR [facility] Insulin Aspart (Novolog Vial Sliding Scale -) 1 vial SQ ACHS [facility]; Protocol Lisinopril (Prinivil) 20 mg PO DAILY [facility] Metformin HCl (Glucophage -) 1,000 mg PO BIDAC [facility] Oxycodone HCl (Roxicodone -) 10 mg PO Q4H PRN PRN Reason: PAIN LEVEL 6-10 Stop: 10/21/18 16:46 Sitagliptin Phosphate (Januvia -) 50 mg PO BIDAC [facility] - Objective Vital Signs: Vital Signs Temperature 97.3 F L 10/20/18 19:41 Pulse Rate 66 10/20/18 19:41 Respiratory Rate 19 10/20/18 19:41 Blood Pressure 129/63 10/20/18 19:41 O2 Sat by Pulse Oximetry (%) 98 10/20/18 19:25 Neck: Yes: WNL, Supple Cardiovascular: Yes: WNL, Regular Rate and Rhythm Respiratory: Yes: WNL, Regular, CTA Bilaterally Gastrointestinal: Yes: WNL, Normal Bowel Sounds, Soft Labs: CBC, BMP 10/20/18 07:00 10/20/18 07:00 INR, PTT INR 0.99 (0.83-1.09) 10/20/18 07:00 Problem List - Problems (1) Diabetic toe ulcer Assessment/Plan: Cont augmentin US showed PVD RLE Pt underwent RLE angio and tolerated procedure Rt SFA angioplasty w/ stent Code(s): E11.621 - TYPE 2 DIABETES MELLITUS WITH FOOT ULCER; L97.509 - NON- PRESSURE CHRONIC ULCER OTH PRT UNSP FOOT W UNSP SEVERITY (2) Diabetes Assessment/Plan: Cont metformin/januvia/glybizide Cont sliding scale w/ coverage Code(s): E11.9 - TYPE 2 DIABETES MELLITUS WITHOUT COMPLICATIONS (3) HTN (hypertension) Assessment/Plan: Cont lisinopril Code(s): I10 - ESSENTIAL (PRIMARY) HYPERTENSION
[2018-10-20] MEDS ORDERED: INSULIN (NOVOLOG) ASPART 100 UNITS/ML 10ML VIAL ONE (21:12)
[2018-10-20] MEDS: CLOPIDOGREL BISULFATE 75 MG TABLET (FP) PO SCH (21:37)
[2018-10-20] MEDS: ACETAMINOPHEN 325 MG TABLET (FP) PO PRN (22:28)
[2018-10-21] MEDS ORDERED: INSULIN (NOVOLOG) ASPART 100 UNITS/ML 10ML VIAL ONE (05:42)
[2018-10-21] MEDS ORDERED: PT OWN MED DRAWER 7, Y5N ONE (05:43)
[2018-10-21] MEDS: GABAPENTIN 300 MG CAPSULE (FP) PO SCH ×2 (06:57→14:15)
[2018-10-21] MEDS: INSULIN SLIDING SCALE (NOVOLOG) 1 VIAL SQ SCH ×2 (06:57→12:11)
[2018-10-21] MEDS ORDERED: glipiZIDE-XL 10 MG TAB.ER.24 (FP) PO SCH (07:00)
[2018-10-21] MEDS ORDERED: sitaGLIPtin PHOSPHATE 50 MG TABLET PO SCH (07:00)
[2018-10-21] MEDS ORDERED: metFORMIN HCL 500 MG TABLET (FP) PO SCH (07:00)
[2018-10-21] MEDS: ACETAMINOPHEN 325 MG TABLET (FP) PO PRN (07:06)
[2018-10-21] MEDS ORDERED: AMOX TR/POT CLAV 875MG/125MG TABLETS (FP) PO SCH (08:00)
--- NOTE | 2018-10-21 09:55 | PN ---
Progress Note (short form) - Note Progress Note: POD 1, s/p aortogram, RLE angiogram, SFA angioplasty with stent Pt seen and examined. Reports she is doing well post op. Has been oob. Tolerating PO. No issues overnight. Denies any cp/sob, n/v/d, motor/sensory deficits. Vital Signs Temp 98.2 F 10/21/18 06:00 Pulse 69 10/21/18 06:00 Resp 18 10/21/18 06:00 BP 139/68 10/21/18 06:00 Pulse Ox 98 10/20/18 21:00 Intake & Output 10/20/18 10/20/18 10/21/18 11:59 23:59 11:59 Intake Total 310 1240 Output Total 50 Balance 310 1190 Intake: IV 1240 D5-1/2Ns - 1,000 ml @ 75 40 mls/hr IV ASDIR ISELA Rx#: [id number] IVPB 50 Oral 260 Output: Estimated Blood Loss 50 Other: Voiding Method Toilet Toilet Toilet # Unmeasured Voids Void 2 1 1 Bowel Movement Yes No No # Bowel Movements 1 1 Gen: awake, alert, nad, laying in bed watching tv. Resp: unlabored on RA Groin: L groin with scant dried blood. Palpable femoral pulse, no bruit/thrill, no palpable hematoma. Ext: R foot with approx 2x2cm circular ulcer at lateral aspect of second toe. Superficial scabbing noted, no erythema, scant serous drainage, no foul odor. Vasc: Palpable femoral b/l, dp/pt's not appreciated, b/l feet warm with brisk cap refill. A/P: 53 y/o F w/ PMHx HTN, diabetes and peripheral neuropathy, admitted 10/12 for nonhealing R second toe ulcer with concern for osteo, now POD 1, s/p aortogram, RLE angiogram, SFA angioplasty with stent. Doing well this morning. R foot stable. -Santyl to ulcer -ABx per -Please ensure pt has RX for Plavix 75mg Po QD upon d/c -Please page [phone] with any questions/concerns d/w attending Dr Tellez
[2018-10-21] MEDS ORDERED: COLLAGENASE CLOSTRIDIUM HIST. 30 GRAMS TUBE TP SCH (10:00)
[2018-10-21] MEDS ORDERED: LISINOPRIL 20 MG TABLET (FP) PO SCH (10:00)
[2018-10-21] MEDS: CLOPIDOGREL BISULFATE 75 MG TABLET (FP) PO SCH (10:23)
[2018-10-21] MEDS: HEPARIN NA (PORCINE) 5,000 UNITS/ML 1ML VIAL SQ SCH (10:26)
--- NOTE | 2018-10-21 12:35 | OP ---
DATE OF OPERATION: 10/20/2018 PREOPERATIVE DIAGNOSIS: Right 2nd toe gangrene. POSTOPERATIVE DIAGNOSIS: Right 2nd toe gangrene. PROCEDURE: Aortogram, right lower extremity angiogram, superficial femoral artery angioplasty with stent placement. SURGEON: Se Cortes MD ANESTHESIA: Fractional. BLOOD LOSS: 50 mL. INDICATIONS: The patient is a 53-year-old female who has had a right 2nd toe gangrene for over 6-8 weeks. It has not been getting better, and she was admitted to the hospital. Preoperative PVR ABIs were performed showing that she has decreased flow in her tibial vessels. It was decided that she would need an angiogram. Patient was consented for the procedure understanding all risks, benefits, and alternatives and then taken to the operating room. PROCEDURE IN DETAIL: Once in the operating suite, she was placed on the operating table in the supine manner, and the area of the right and left groin was prepped and draped in the sterile surgical manner. We then injected 10 mL of lidocaine 0.5% over the left common femoral artery. We then took a micropuncture needle and punctured the left common femoral artery. A micropuncture wire inserted, and a 5-Occitan sheath was inserted. A 0.035 floppy guidewire was inserted into the aorta followed by an Omni Flush catheter. We then shot an aortogram via hand injection showing that the aorta and iliac arteries were without any disease. We then placed our floppy guidewire up and over to the right common femoral artery, and our Omni Flush catheter followed. We then went ahead and shot an angiogram of the right lower extremity showing that the common femoral artery and the profunda were patent, but the SFA was occluded from its origin and came back above the knee. Patient had 2-vessel runoff going into the foot. Popliteal artery was patent. At this point, we placed a 0.035 stiff guidewire down and slid through and cannulated into the SFA. We removed our Omniflush catheter. We placed a 6 x 45 crossover sheath, and 5000 units of IV heparin were administered to the patient. We then used a Quick-Cross catheter and moved to cross our occluded SFA and place the wire into the jena popliteal artery and down into the posterior tibial artery. We then went ahead and used a 5 x 200 Ultraverse Balloon and performed angioplasty of the occluded SFA. Completion angiogram now showed that the SFA was patent, but it was dissected. At this point, we then went ahead and placed a 6 x 200 LifeStent and then a 6 x 120 LifeStent to the origin of the SFA. The extensor balloon was then placed using our 5 x 200 Ultraverse Balloon. Completion angiogram now showed that the SFA was patent. There was good brisk flow going into the foot, and patient had 2-vessel runoff going into the foot. At this point, no more intervention was needed. We brought our crossover sheath up and over. StarClose device was successfully deployed in the left common femoral artery. Pressure was held for 5 minutes. After there was no more bleeding, the area was wet and dried, and Dermabond was placed. The patient tolerated the procedure with no complications. Patient transferred to PACU in stable condition where patient had good DP and PT signals, and patient was started on Plavix. SE CORTES DO [id number]
--- NOTE | 2018-10-21 13:24 | PN ---
Progress Note, Physician - Current Medication List Current Medications: Active Medications Acetaminophen (Tylenol -) 650 mg PO Q4H PRN PRN Reason: PAIN LEVEL 1-5 Last Admin: 10/21/18 07:06 Dose: 650 mg Amoxicillin/Clavulanate Potassium (Augmentin - 875mg Tablet) 1 tab PO BID@0800, 1730 [facility] Last Admin: 10/21/18 08:59 Dose: 1 tab Clopidogrel Bisulfate (Plavix -) 75 mg PO DAILY [facility] Last Admin: 10/21/18 10:23 Dose: 75 mg Collagenase (Santyl -) 1 applic TP DAILY [facility]; Protocol Gabapentin (Neurontin -) 300 mg PO TID [facility] Last Admin: 10/21/18 06:57 Dose: 300 mg Glipizide (Glucotrol Xl -) 10 mg PO BIDAC [facility] Last Admin: 10/21/18 06:57 Dose: 10 mg Heparin Sodium (Porcine) (Heparin -) 5,000 unit SQ BID [facility] Last Admin: 10/21/18 10:26 Dose: Not Given Dextrose/Sodium Chloride (D5-1/2ns -) 1,000 mls @ 75 mls/hr IV ASDIR [facility] Last Admin: 10/20/18 21:37 Dose: Not Given Insulin Aspart (Novolog Vial Sliding Scale -) 1 vial SQ ACHS [facility]; Protocol Last Admin: 10/21/18 12:11 Dose: Not Given Lisinopril (Prinivil) 20 mg PO DAILY [facility] Last Admin: 10/21/18 10:23 Dose: 20 mg Metformin HCl (Glucophage -) 1,000 mg PO BIDAC [facility] Last Admin: 10/21/18 06:57 Dose: 1,000 mg Oxycodone HCl (Roxicodone -) 10 mg PO Q4H PRN PRN Reason: PAIN LEVEL 6-10 Stop: 10/21/18 16:46 Sitagliptin Phosphate (Januvia -) 50 mg PO BIDAC [facility] Last Admin: 10/21/18 06:57 Dose: 50 mg - Objective Vital Signs: Vital Signs Temperature 97.9 F 10/21/18 10:00 Pulse Rate 64 10/21/18 10:00 Respiratory Rate 18 10/21/18 10:00 Blood Pressure 115/71 10/21/18 10:00 O2 Sat by Pulse Oximetry (%) 98 10/20/18 21:00 Labs: CBC, BMP 10/20/18 07:00 10/20/18 07:00 INR, PTT INR 0.99 (0.83-1.09) 10/20/18 07:00
[2018-10-21 15:23] VITALS: BP 119/60; PULSE 73; TEMP 98.2
== END 2018-10-21 16:17 | disposition home or self-care (01) | DRG 254 ==
LOC: JER 17:24 → JERBED 22:06 → J6S 10-13 00:35 → J5S 10-13 14:44
PROVIDERS: ADMIT Internal Medicine; ATTEND Internal Medicine
PROC: 047R3ZZ Dilation of Right Posterior Tibial Artery, Percutaneous Approach (ICD-10-PCS; 2018-10-12)
PROC: 3E033GC Introduction of Other Therapeutic Substance into Peripheral Vein, Percutaneous Approach (ICD-10-PCS; 2018-10-12)
PROC: 047K34Z Dilation of Right Femoral Artery with Drug-eluting Intraluminal Device, Percutaneous Approach (ICD-10-PCS; principal; 2018-10-20 16:00)
DX: E11.51 Type 2 diabetes mellitus with diabetic peripheral angiopathy without gangrene (principal); I70.291 Other atherosclerosis of native arteries of extremities, right leg; E11.621 Type 2 diabetes mellitus with foot ulcer; L97.519 Non-pressure chronic ulcer of other part of right foot with unspecified severity; I10 Essential (primary) hypertension; Z79.84 Long term (current) use of oral hypoglycemic drugs; Z87.891 Personal history of nicotine dependence; B95.7 Other staphylococcus as the cause of diseases classified elsewhere
CPT/HCPCS: 36415; 71046-TC-FY; 73630-TC-RT-FY; 73660-TC-FY; 76000-TC-FY; 80053; 82550; 82962; 83605; 85025; 85610; 85651; 85730; 86140; 87040; 87070; 87186; 87205; 93005; 93010; 93923; 94760; 99282-25; 99285-25; J1644

== ENCOUNTER 2019-04-08 08:04 | Day surgery (SDC) | payer BC | END 2019-04-08 14:20 | disposition home or self-care (01) | LOC: JASU-SURG 08:04 ==

== ENCOUNTER 2019-04-28 08:23 | Day surgery (SDC) | payer BC ==
[2019-04-27 10:05] VITALS: BMI 31.1
--- NOTE | 2019-04-28 09:10 | HP ---
Satellite [facility] - Chief Complaint Chief Complaint: right carpal tunnel and cubital tunnel syndrome History of Present Illness: right carpal tunnel and cubital tunnel syndrome History Source: Patient Limitations to Obtaining History: No Limitations - Past Medical History Allergies/Adverse Reactions: Allergies Allergy/AdvReac Type Severity Reaction Status Date / Time No Known Allergies Allergy Verified 04/27/19 10:20 Cardiovascular: Yes: HTN ...LMP: 12/26/18 Endocrine: Yes: Diabetes Mellitus - Current Medications Current Medications: Home Medications Medication Instructions Recorded Gabapentin 300 mg PO TID 10/08/18 Glipizide [Glipizide ER] 10 mg PO BID 10/08/18 Lisinopril [Prinivil] 20 mg PO DAILY 10/08/18 Metformin HCl [Glucophage] 1,000 mg PO BID 10/08/18 Sitagliptin Phosphate [Januvia -] 50 mg PO BID 10/08/18 Clopidogrel Bisulfate [Plavix -] 75 mg PO DAILY #30 tablet 10/29/18 Pramipexole Di-HCl [Mirapex] 1.5 tab PO HS 04/08/19 Pramipexole Dihydrochloride 0.5 tab PO AM 04/08/19 [Mirapex -] Cholecalciferol (Vitamin D3) 1,000 unit PO DAILY 04/27/19 [Vitamin D3] Satellite Physical Exam - Physical Examination Vital Signs: Vital Signs Period Temp Pulse Resp BP Sys/Khan Pulse Ox Last 24 Hr 98.1 F 73 18 135/67 99 General Appearance: Well Nourished ENT: Clear Lung: Clear to auscultation Heart: Regular rate & rhythm Breasts: Soft Abdomen: Soft Extremities: No edema Satellite Impression/Plan - Impression/Plan Impression: right carpal tunnel and cubital tunnel syndrome Operative Procedure: right carpal tunnel release and subcutaneous ulnar nerve transposition Date to be Performed: 04/28/19
[2019-04-28] MEDS ORDERED: MIDAZOLAM HCL 2 MG/2 ML SINGLE DOSE VIAL ONE (11:24)
[2019-04-28] MEDS ORDERED: PROPOFOL 20 ML ONE (11:25)
[2019-04-28] MEDS ORDERED: ceFAZolin SODIUM 1 GM VIAL IVPB ONE (11:36)
[2019-04-28] MEDS ORDERED: LIDOCAINE HCL 1%, 10 MG/ML (20ML VIAL) INF ONE ×3 (11:49)
[2019-04-28] MEDS ORDERED: LIDOCAINE HCL 1%, 10 MG/ML (20ML VIAL) ONE (11:52)
--- NOTE | 2019-04-28 12:52 | OP ---
Operative Note - Note: Operative Date: 04/28/19 ([facility]) Pre-Operative Diagnosis: right cts, cubital tunnel syndrome Operation: right ctr, subcutaneous ulna nerve transposition Post-Operative Diagnosis: Same as Pre-op Surgeon: Luis A Arevalo Tunnel Mucker: Pierre Lee Anesthesiologist/CLIENT STRATEGIST: Kathleen Fishman MD Anesthesia: General, Local Specimens Removed: tenosynovium Estimated Blood Loss (mls): 0 (tourniquet) Operative Report Dictated: Yes
[2019-04-28] MEDS ORDERED: oxyCODONE HCL 5 MG TABLET PO PRN (13:10)
[2019-04-28] MEDS ORDERED: PROMETHAZINE HCL 25 MG/1 ML VIAL IVPB PRN (13:10)
[2019-04-28] MEDS ORDERED: ONDANSETRON 4 MG/2 ML VIAL IVPUSH PRN (13:10)
[2019-04-28] MEDS ORDERED: LACTATED RINGERS SOLUTION 1,000 ML IV SCH (13:15)
--- NOTE | 2019-04-28 14:19 | SPEC ---
DATE OF OPERATION: 04/28/2019 PREOPERATIVE DIAGNOSES: Right cubital tunnel syndrome and right carpal tunnel syndrome. POSTOPERATIVE DIAGNOSES: Right cubital tunnel syndrome and right carpal tunnel syndrome. PROCEDURE: 1. Right subcutaneous ulnar nerve transposition. 2. Right carpal tunnel release. 3. Tenosynovectomy. SURGEON: Jermain Dennis MD LIQUOR RECTIFIER: DARSHAN Vaca; Kathleen Fishman MD ANESTHESIA: LM anesthesia with local injection of 20 mL of 0.5% Marcaine and 1% lidocaine mix. DRAINS: None. COMPLICATIONS: None. SPECIMENS: Tenosynovium, right wrist. BLOOD LOSS: None. BLOOD GIVEN: None. FLUID REPLACEMENT: 700 mL. TOTAL TOURNIQUET TIME: 50 minutes. No complications during the case. INDICATIONS: The patient is a 53-year-old female with a preoperative diagnosis of severe right cubital and right carpal tunnel syndrome. After understanding the potential risks, complications, alternatives and benefits of surgery versus nonsurgical treatment, the patient elected to undergo this procedure. Extensive preoperative discussions were had. The patient understands she likely will not get complete caodaism of her function. She will have atrophy, weakness, numbness, tingling, pins and needles, some of which may be permanent. DESCRIPTION OF PROCEDURE: The patient was brought to the operating room, peripheral IV placed and intravenous sedation was given. One gram of intravenous Ancef was given. MAC anesthesia was induced. A tourniquet was applied to the right upper arm and the right upper extremity was prepped and draped in sterile fashion. CARPAL TUNNEL RELEASE, TENOSYNOVECTOMY: The entire case was done under 3.8 loupe magnification. A marking pen was utilized to mahad out a longitudinal incision in an already existing skin crease. Twenty mL of 0.5% Marcaine mixed with 1% Lidocaine was injected in and around the surgical incision. The right upper extremity was elevated, exsanguinated with an Esmarch bandage and the tourniquet inflated to 250 mmHg. A No. 15 scalpel blade was utilized to cut down through the skin. Subcutaneous hemostasis was achieved with the bipolar cautery. Dissection was done through the superficial palmar fascia. Self-retaining retractors were placed into the wound. Under direct visualization, the transverse carpal ligament was transected with a No. 15 scalpel blade, exposing the median nerve and the contents of the carpal tunnel. The distal and proximal extents of the release were completed with a Littler scissor and checked with irrigation and my small finger. They were seen to be complete. Limited dissection was done on the radial side of the median nerve and more extensive dissection was done on the ulnar side of the median nerve. The patients nerve was seen to be quite compressed by epineurium and therefore a limited epineurotomy was performed. A Ragnell retractor was used to gently retract the median nerve in a radial direction. The patient had a lot of tenosynovitis and therefore a tenosynovectomy was performed off all 9 flexor tendons. This was passed off the field as tenosynovium right wrist. The floor of the carpal tunnel was checked. There were no abnormal masses or ganglion cysts. The area was copiously irrigated and washed out and closure begun. Undyed 4-0 Vicryl was used to close the deep dermal layer. Final skin reapproximation was done with horizontal mattress 4-0 nylon sutures. The area was then washed and dried, covered with Xeroform, 4x4s, fluffs between the fingers, Webril and a 4-inch plaster roll was utilized to make a volar splint, which was then wrapped with Brigette and Coban. SUBCUTANEOUS ULNAR NERVE TRANSPOSITION: A curvilinear incision was marked out and made over the medial epicondyle in the area of the cubital tunnel. A subcutaneous incision was made with a No. 15 scalpel blade. Subcutaneous hemostasis was achieved with bipolar cautery. Dissection was done with the Littler scissors down to the cubital tunnel. Great care was taken to preserve all crossing neurovascular structures. I was able to identify the ulnar nerve in a more proximal position. Circumferential dissection was done, and a 0.5 inch Estrella drain with irrigation for lubrication was passed around and for identification and retraction. [employer] retractors were used for better visualization proximally. The ulnar nerve was released, going more proximally, including the medial head of the triceps. I then used my index finger to do blunt dissection in a circumferential fashion around the ulnar nerve until there were no points of compression. The medial intramuscular septum was directly visualized and a portion of it cut, as not to be a point of compression. Next, our attention turned to the cubital tunnel. With very careful dissection, the cubital tunnel was opened up, the ulnar nerve protected. All small branches protected. The release continued through Clarke ligament through the two heads of the flexor carpi ulnaris (FCU) and into the muscle itself. Again, I used my index finger for gentle circumferential dissection around the ulnar nerve, but again, trying to preserve all neurovascular branches. I then was able to transpose the ulnar nerve in an anterior direction anterior to the axial rotation of the medial epicondyle. I was able to move quite easily through an elbow flexion and extension of range of motion, and there were no points of compression. Therefore, the area was copiously irrigated and washed out. I then tacked down the subcutaneous flap including the adipose tissue to the medial epicondyle and to the adipose tissue on the other side of the incision with 2-0 Vicryl sutures. It held the ulnar nerve in its new position, and the ulnar nerve was not bound down in any location. Closure was done with 4-0 undyed Vicryl in the deep dermal layer, and final skin reapproximation was done with a running subcuticular 4-0 Biosyn stitch. The area was then washed and dried, covered with Steri-Strips, 4x4 gauze, Webril, and an ORTHO-GLASS posterior fiberglass splint was applied, wrapped with a Brigette and Oniel bandages. The tourniquet was taken down after a total tourniquet time of 50 minutes. There were no complications during the case. The patient tolerated the procedure well and was brought to the ambulatory recovery room in stable condition. CLOSURE SUMMARY: The elbow incision was closed with 2-0 Vicryl in the deep adipose layer, stabilizing the ulnar nerve, 4-0 undyed Vicryl to close the deep dermal layer, and final skin reapproximation was done with a running subcuticular 4-0 Biosyn stitch. It was covered with Steri-Strips. The area was covered with 4 x 4 gauze, fluffs between the fingers, Webril, and a 5-inch Ortho-Glass posterior splint was applied, wrapped with 3 Oniel bandages. The tourniquet was taken down after a total tourniquet time of 50 minutes. No complications during the case. JERMAIN DENNIS M.D. [id number]
[2019-04-28 15:54] VITALS: TEMP 97.6
[2019-04-28 18:51] VITALS: BP 121/63; PULSE 64
--- NOTE | 2019-04-30 18:41 | PATH ---
Surgical Pathology Report Patient Name: MARILEE MINER [facility]. Rec. #: [id number] /Age/Gender: 1965 (Age: 53) / F Account: [id number] Location: [facility] Taken: 04/28/2019 Received: 04/28/2019 Reported: 04/30/2019 Physicians: Luis A Arevalo M.D. Specimen(s) Received TENOSYNOVIUM RIGHT HAND Clinical History Carpal tunnel right hand Final Diagnosis TENOSYNOVIUM, HAND, RIGHT, CARPAL TUNNEL RELEASE: BENIGN DENSE FIBROCONNECTIVE TISSUE. Electronically Signed Maryam Carolina M.D. Gross Description Received in formalin labeled "tenosynovium right hand," is a 2.0 x 1.6 x 0.3 cm aggregate of wang-yellow portions of soft tissue, consistent with tenosynovium. The specimen is submitted in toto in one cassette. 04/29/2019 [facility]04/29/2019
== END 2019-04-28 16:40 | disposition home or self-care (01) ==
LOC: JASU-SURG 08:23
PROVIDERS: ATTEND Orthopaedic Surgery
PROC: 01N50ZZ Release Median Nerve, Open Approach (ICD-10-PCS; 2019-04-28)
PROC: 01S40ZZ Reposition Ulnar Nerve, Open Approach (ICD-10-PCS; principal; 2019-04-28 10:00)
DX: G56.01 Carpal tunnel syndrome, right upper limb (principal); G56.21 Lesion of ulnar nerve, right upper limb; I10 Essential (primary) hypertension; E11.9 Type 2 diabetes mellitus without complications
CPT/HCPCS: 82962; 84703; 88304-TC; 94760

== ENCOUNTER 2019-08-19 07:13 | Day surgery (SDC) | payer BC ==
[2019-08-18 14:22] VITALS: BMI 32.0
[~2019-08-19 07:13] MED LIST: HEPARIN NA (PORCINE) 5,000 UNITS/ML 1ML VIAL IP ONE; LIDOCAINE HCL 1%, 10 MG/ML (20ML VIAL) PNB ONE
[2019-08-19] MEDS ORDERED: MIDAZOLAM HCL 2 MG/2 ML SINGLE DOSE VIAL ONE (08:09)
[2019-08-19] MEDS ORDERED: PROPOFOL 20 ML ONE ×6 (08:10→09:52)
[2019-08-19] MEDS ORDERED: SEVOFLURANE 250 ML BTL ONE (08:12)
[2019-08-19] MEDS ORDERED: ONDANSETRON 4 MG/2 ML VIAL IVPUSH PRN (08:21)
[2019-08-19] MEDS ORDERED: LACTATED RINGERS SOLUTION 1,000 ML IV SCH (08:30)
[2019-08-19] MEDS ORDERED: LIDOCAINE HCL 1%, 10 MG/ML (20ML VIAL) ONE (08:37)
[2019-08-19] MEDS ORDERED: HEPARIN NA (PORCINE) 5,000 UNITS/ML 1ML VIAL ONE (08:37)
--- NOTE | 2019-08-19 09:27 | HP ---
Admitting History and Physical - Admission Chief Complaint: right lower extremity claudication. Recent US shows occluded stent. Limitations to Obtaining History: No Limitations - Past Medical History Cardiovascular: Yes: HTN ...LMP: 08/14/19 ...: No Endocrine: Yes: Diabetes Mellitus - Smoking History Smoking history: Never smoked Have you smoked in the past 12 months: No Aproximately how many cigarettes per day: 10 If you are a former smoker, when did you quit?: 3 months ago - Alcohol/Substance Use Hx Alcohol Use: Yes (rare) Home Medications - Allergies Allergies/Adverse Reactions: Allergies Allergy/AdvReac Type Severity Reaction Status Date / Time No Known Allergies Allergy Verified 08/19/19 09:07 - Home Medications Home Medications: Ambulatory Orders Gabapentin 600 mg PO TID 10/08/18 Glipizide [Glipizide ER] 10 mg PO BID 10/08/18 Lisinopril [Prinivil] 20 mg PO DAILY 10/08/18 Metformin HCl [Glucophage] 1,000 mg PO BID 10/08/18 Sitagliptin Phosphate [Januvia -] 50 mg PO BID 10/08/18 Pramipexole Di-HCl [Mirapex] 2 tab PO HS 04/08/19 Pramipexole Dihydrochloride [Mirapex -] 1 tab PO AM 04/08/19 Cholecalciferol (Vitamin D3) [Vitamin D3] 1,000 unit PO DAILY 04/27/19 Celecoxib [Celebrex -] 200 mg PO BID 08/18/19 Clopidogrel Bisulfate [Plavix] 75 mg PO DAILY 08/18/19 Review of Systems - Review of Systems Constitutional: reports: No Symptoms Eyes: reports: No Symptoms HENT: reports: No Symptoms Neck: reports: No Symptoms Cardiovascular: reports: No Symptoms Respiratory: reports: No Symptoms Gastrointestinal: reports: No Symptoms Genitourinary: reports: No Symptoms Musculoskeletal: reports: No Symptoms Integumentary: reports: No Symptoms Neurological: reports: No Symptoms Endocrine: reports: No Symptoms Hematology/Lymphatic: reports: No Symptoms Psychiatric: reports: No Symptoms Physical Examination Vital Signs: Vital Signs Temperature 98.4 F 08/19/19 09:05 Pulse Rate 80 08/19/19 09:05 Respiratory Rate 20 08/19/19 09:05 Blood Pressure 122/77 08/19/19 09:05 O2 Sat by Pulse Oximetry (%) 99 08/19/19 08:51 Constitutional: Yes: Well Nourished, No Distress, Calm Eyes: Yes: WNL, Conjunctiva Clear, EOM Intact HENT: Yes: WNL, Atraumatic, Normocephalic Neck: Yes: WNL, Supple, Trachea Midline Cardiovascular: Yes: WNL, Regular Rate and Rhythm Respiratory: Yes: WNL, Regular, CTA Bilaterally Gastrointestinal: Yes: WNL, Normal Bowel Sounds Musculoskeletal: Yes: WNL Extremities: Yes: WNL Edema: No Peripheral Pulses WNL: No Integumentary: Yes: WNL Neurological: Yes: WNL, Alert, Oriented ...Motor Strength: WNL Psychiatric: Yes: WNL Problem List - Problems (1) Claudication of right lower extremity Assessment/Plan: for right lower extremtiy angiogram today Code(s): I73.9 - PERIPHERAL VASCULAR DISEASE, UNSPECIFIED
[2019-08-19] MEDS ORDERED: SODIUM CHLORIDE 0.9% P/F 10 ML VIAL IJ ONE (09:44)
[2019-08-19] MEDS ORDERED: ceFAZolin SODIUM 1 GM VIAL ONE (09:44)
[2019-08-19 10:01] LABS: POTASSIUM 5.5 mmol/L (3.5-5.1)
[2019-08-19] MEDS ORDERED: LIDOCAINE HCL 1%, 10 MG/ML (20ML VIAL) PNB ONE ×2 (10:04)
[2019-08-19] MEDS ORDERED: HEPARIN NA (PORCINE) 5,000 UNITS/ML 1ML VIAL IP ONE (10:04)
--- NOTE | 2019-08-19 11:15 | OP ---
Operative Note - Note: Operative Date: 08/19/19 Pre-Operative Diagnosis: Right lower extremity claudication Operation: Aortogram, RLE angiogram, SFA angioplasty Findings: 100% occlusion of stent Post-Operative Diagnosis: Same as Pre-op Surgeon: Se Tellez Anesthesia: Fractional Estimated Blood Loss (mls): 50 Operative Report Dictated: Yes
[2019-08-19] MEDS ORDERED: CLOPIDOGREL BISULFATE 75 MG TABLET (FP) PO ONE ×2 (11:19→11:53)
[2019-08-19] MEDS ORDERED: CLOPIDOGREL BISULFATE 75 MG TABLET (FP) ONE (11:48)
--- NOTE | 2019-08-19 11:51 | OP ---
DATE OF OPERATION: 08/19/2019 PREOPERATIVE DIAGNOSIS: Right lower extremity claudication. POSTOPERATIVE DIAGNOSIS: Right lower extremity claudication. PROCEDURE: Aortogram, right lower extremity angiogram, superficial femoral artery angioplasty. SURGEON: Se Cortes DO ANESTHESIA: Fractional. BLOOD LOSS: 50 mL. Patient is a 54-year-old female who has right lower extremity SFA stents. On an ultrasound done earlier this week, it showed that the SFA stents are occluded. It was decided that she would need an angiogram. Patient came in through ambulatory surgery. Patient was consented for the procedures, understanding all risks, benefits, and alternatives. Patient was then taken into the operating room. Once in the operating room, patient was laid down on the operating table in supine manner, and the areas of the right and left groin were prepped and draped in a sterile surgical manner. We then injected 10 mL of lidocaine 1% over the left common femoral artery. Using ultrasound guidance, we were able to visualize the left common femoral artery, and using our micropuncture needle, we were able to puncture the artery. Micropuncture wire was inserted. Micropuncture sheath was inserted, and traditional 5-[place] sheath was inserted. A 0.035 floppy guidewire was inserted into the aorta, followed by an Omni Flush catheter. We then shot an aortogram via hand injection, showing that the aorta and the iliac arteries were without any disease. We then used a 0.035 floppy guidewire and went up and over to the right common femoral artery, and Omni Flush catheter followed. We then shot an angiogram of the right lower extremity via hand injection, showing that the common femoral artery and the profunda were patent. The SFA was occluded from the origin. The stent was occluded. The comes back in the adductor canal and the distal SFA above-knee popliteal is patent and patient has 2-vessel runoff into the foot. At this point, we placed a 0.035 stiff guidewire into the occluded stent. We then removed our Omni Flush catheter. We placed a 6 x 45 crossover sheath, and 5000 units of IV heparin were administered to the patient. We then brought our wire through the stent and placed it into the popliteal artery. We then went ahead and used a 6 x 150 balloon and performed angioplasty of the entire stent. We then used a 7 x 150 Ultraverse balloon and performed angioplasty of the entire stent and proximal to the stent and distal to the stent. Once we performed those angioplasties, we shot an angiogram of the right lower extremity, showing that the SFA was now patent, femoral artery was patent, stent was patent, distal SFA was patent, and patient had 2-vessel runoff into the foot, mainly the stronger artery being the anterior tibial. At this point, no more intervention was needed. We brought our sheath up and over. StarClose device was successfully deployed in the left common femoral artery. Pressure was held for 5 minutes. Afterwards, there was no more bleeding. The area was wet and dried, and Dermabond was placed. Patient tolerated the procedure with no complications. Patient transferred to PACU in stable condition. SE CORTES DO [id number]
[2019-08-19] MEDS ORDERED: oxyCODONE HCL 5 MG TABLET ONE ×2 (12:29→15:27)
[2019-08-19] MEDS ORDERED: oxyCODONE HCL 5 MG TABLET PO ONE ×2 (12:32→12:51)
[2019-08-19 19:09] VITALS: BP 136/70; PULSE 68; TEMP 98
== END 2019-08-19 18:30 | disposition home or self-care (01) ==
LOC: JASU-SURG 07:13
PROVIDERS: ATTEND Surgery Vascular Surgery
PROC: 047K3ZZ Dilation of Right Femoral Artery, Percutaneous Approach (ICD-10-PCS; principal; 2019-08-19 09:00)
DX: I73.9 Peripheral vascular disease, unspecified (principal); I10 Essential (primary) hypertension; E11.9 Type 2 diabetes mellitus without complications
CPT/HCPCS: 37224; C1725; 36415; 76000-TC-FY; 82947; 84132; 84703; 94760; J1644

== ENCOUNTER 2021-12-27 04:14 | Day surgery (SDC) | payer OTHER, BC ==
[2021-12-24 15:30] VITALS: BMI 32.9
[2021-12-27] MEDS ORDERED: LIDOCAINE HCL 1%, 10 MG/ML (20ML VIAL) ONE (07:42)
[2021-12-27] MEDS ORDERED: HEPARIN NA (PORCINE) 5,000 UNITS/ML 1ML VIAL ONE ×2 (07:42→10:12)
[2021-12-27] MEDS ORDERED: MIDAZOLAM HCL 2 MG/2 ML SINGLE DOSE VIAL ONE (08:58)
[2021-12-27] MEDS ORDERED: PROPOFOL 20 ML ONE ×2 (09:10→09:39)
[2021-12-27] MEDS ORDERED: ceFAZolin SODIUM 1 GM VIAL IVPB ONE (09:30)
[2021-12-27] MEDS ORDERED: HEPARIN NA (PORCINE) 5,000 UNITS/ML 1ML VIAL SQ ONE (10:21)
[2021-12-27] MEDS ORDERED: LIDOCAINE HCL 1%, 10 MG/ML (20ML VIAL) INF ONE ×2 (10:27)
[2021-12-27] MEDS ORDERED: ONDANSETRON 4 MG/2 ML VIAL IVPUSH PRN (11:25)
[2021-12-27] MEDS ORDERED: LACTATED RINGERS SOLUTION 1,000 ML IV SCH (11:30)
[2021-12-27] MEDS ORDERED: oxyCODONE HCL 5 MG TABLET PO PRN ×2 (12:50)
[2021-12-27] MEDS ORDERED: oxyCODONE HCL 5 MG TABLET PO ONE (12:53)
[2021-12-27 13:45] VITALS: BP 113/57; PULSE 68; TEMP 96.9
== END 2021-12-27 14:27 | disposition home or self-care (01) ==
LOC: JASU-SURG 04:14
PROVIDERS: ATTEND Surgery Vascular Surgery
PROC: 047K3Z1 Dilation of Right Femoral Artery using Drug-Coated Balloon, Percutaneous Approach (ICD-10-PCS; 2021-12-27)
PROC: B41DYZZ Fluoroscopy of Aorta and Bilateral Lower Extremity Arteries using Other Contrast (ICD-10-PCS; 2021-12-27)
PROC: 047M3Z1 Dilation of Right Popliteal Artery using Drug-Coated Balloon, Percutaneous Approach (ICD-10-PCS; principal; 2021-12-27 09:00)
DX: E11.51 Type 2 diabetes mellitus with diabetic peripheral angiopathy without gangrene (principal); I70.211 Atherosclerosis of native arteries of extremities with intermittent claudication, right leg; Z79.84 Long term (current) use of oral hypoglycemic drugs
CPT/HCPCS: 37225; C1885; C2623; 76000-TC-FY; 82962; 94760; J1644

== ENCOUNTER 2022-10-31 05:02 | Day surgery (SDC) | payer OTHER, BC ==
[2022-10-28 14:44] VITALS: BMI 33.8
[2022-10-31 07:16] VITALS: BP 151/85; PULSE 95; RESP 18; TEMP 97.6
[2022-10-31] MEDS ORDERED: LIDOCAINE HCL 1%, 10 MG/ML (20ML VIAL) ONE (07:33)
[2022-10-31] MEDS ORDERED: HEPARIN NA (PORCINE) 5,000 UNITS/ML 1ML VIAL ONE (07:33)
== END 2022-10-31 09:45 | disposition home or self-care (01) ==
LOC: JASU-SURG 05:02
PROVIDERS: ATTEND Surgery Vascular Surgery
DX: Z53.8 Procedure and treatment not carried out for other reasons (principal)
CPT/HCPCS: 82962; J1644

== ENCOUNTER 2023-07-14 13:43 | Inpatient (IN) | payer OTHER, BC ==
[2023-07-14 15:30] LABS: BASO % 0.7 % (0-2.0); EOS % 1.2 % (0-4.5); HEMATOCRIT 44.6 % (32.4-45.2); HEMOGLOBIN 14.1 GM/dL (10.7-15.3); LYMPH % 21.6 % (8-40); MCH 26.5 pg (25.7-33.7); MCHC 31.5 g/dl (32.0-36.0); MEAN PLT VOLUME 8.1 fl (7.5-11.1); MONO % 7.5 % (3.8-10.2); PLATELET COUNT 270 10^3/uL (134-434); RBC 5.31 M/mm3 (3.60-5.2); RDW 14.9 % (11.6-15.6); WHITE BLOOD COUNT 11.3 K/mm3 (4.0-10.0)
[2023-07-14 15:38] LABS: INR 1.01 (0.83-1.09); PROTHROMBIN TIME (PATIENT) 11.7 SEC (9.7-13.0)
[2023-07-14 15:41] LABS: ACTIVATED PTT 30.3 SECONDS (25.2-36.5)
[2023-07-14 16:33] LABS: POTASSIUM 4.7 mmol/L (3.5-5.1)
[2023-07-14 16:35] LABS: CALCIUM 9.5 mg/dL (8.5-10.1)
[2023-07-14 16:36] LABS: ALBUMIN 3.7 g/dl (3.4-5.0); BLOOD UREA NITROGEN 17.2 mg/dL (7-18); MAGNESIUM 1.6 mg/dL (1.8-2.4)
[2023-07-14 16:39] LABS: CREATININE 1.1 mg/dL (0.55-1.3)
[2023-07-14 16:40] LABS: TOT PROT 7.7 g/dl (6.4-8.2)
[2023-07-14 16:41] LABS: BILIRUBIN,TOTAL 0.9 mg/dL (0.2-1)
[2023-07-14] MEDS: ACETAMINOPHEN 1000 MG/100 ML BAG IVPB PRN (20:34)
[2023-07-14] MEDS ORDERED: PREGABALIN 25 MG CAPSULE ONE (22:29)
[2023-07-14] MEDS ORDERED: ATORVASTATIN CA 20 MG TABLET (FP) ONE (22:29)
[2023-07-14] MEDS ORDERED: INSULIN (LEVEMIR) 100 UNITS/ML UNITS SQ ONE (22:29)
[2023-07-14] MEDS: INSULIN (LEVEMIR) 100 UNITS/ML UNITS SQ SCH (22:40)
[2023-07-14] MEDS: ATORVASTATIN CA 20 MG TABLET (FP) PO SCH (22:40)
[2023-07-14] MEDS: PREGABALIN 75 MG CAPSULE PO SCH (22:40)
[2023-07-14] MEDS: INSULIN SLIDING SCALE (NOVOLOG) 1 VIAL SQ SCH (22:41)
[2023-07-15 04:36] VITALS: BMI 35.7
[2023-07-15] MEDS: metFORMIN HCL 500 MG TABLET (FP) PO SCH ×2 (06:51→17:14)
[2023-07-15] MEDS: glipiZIDE-XL 10 MG TAB.ER.24 (FP) PO SCH ×2 (06:52→17:15)
[2023-07-15] MEDS: INSULIN SLIDING SCALE (NOVOLOG) 1 VIAL SQ SCH ×4 (06:53→21:59)
[2023-07-15 09:28] LABS: BASO % 0.7 % (0-2.0); EOS % 1.5 % (0-4.5); HEMATOCRIT 40.2 % (32.4-45.2); HEMOGLOBIN 13.1 GM/dL (10.7-15.3); LYMPH % 16.1 % (8-40); MCH 27.2 pg (25.7-33.7); MCHC 32.6 g/dl (32.0-36.0); MEAN CELL VOLUME 83.5 fl (80-96); MEAN PLT VOLUME 8.2 fl (7.5-11.1); MONO % 9.3 % (3.8-10.2); NEUT % 72.4 % (42.8-82.8); PLATELET COUNT 253 10^3/uL (134-434); RBC 4.82 M/mm3 (3.60-5.2); RDW 14.5 % (11.6-15.6)
[2023-07-15] MEDS: LISINOPRIL 20 MG TABLET PO SCH (09:36)
[2023-07-15] MEDS: ENOXAPARIN NA (PORCINE) 40 MG/0.4 ML DISP.SYRIN SQ SCH (09:36)
[2023-07-15] MEDS: amLODIPine BESYLATE 5 MG TABLET (FP) PO SCH (09:36)
[2023-07-15] MEDS: PREGABALIN 75 MG CAPSULE PO SCH ×2 (09:36→21:58)
[2023-07-15 09:56] LABS: POTASSIUM 4.4 mmol/L (3.5-5.1)
[2023-07-15 10:06] LABS: ALBUMIN 3.3 g/dl (3.4-5.0); BLOOD UREA NITROGEN 19.4 mg/dL (7-18); CALCIUM 8.8 mg/dL (8.5-10.1)
[2023-07-15 10:10] LABS: BILIRUBIN,TOTAL 0.9 mg/dL (0.2-1); TOT PROT 6.8 g/dl (6.4-8.2)
[2023-07-15] MEDS: ACETAMINOPHEN 1000 MG/100 ML BAG IVPB PRN (11:26)
[2023-07-15] MEDS ORDERED: INSULIN (NOVOLOG) ASPART 100 UNITS/ML 10ML VIAL ONE ×2 (19:24→21:25)
[2023-07-15] MEDS ORDERED: KETOROLAC TROMETHAMINE 15 MG/ML VIAL IVPUSH PRN (20:07)
[2023-07-15] MEDS: INSULIN (LEVEMIR) 100 UNITS/ML UNITS SQ SCH (21:54)
[2023-07-15] MEDS: ATORVASTATIN CA 20 MG TABLET (FP) PO SCH (21:57)
[2023-07-16] MEDS: metFORMIN HCL 500 MG TABLET (FP) PO SCH ×2 (06:58→17:59)
[2023-07-16] MEDS: glipiZIDE-XL 10 MG TAB.ER.24 (FP) PO SCH ×2 (06:58→17:59)
[2023-07-16] MEDS: INSULIN SLIDING SCALE (NOVOLOG) 1 VIAL SQ SCH ×4 (06:59→21:42)
[2023-07-16] MEDS: PREGABALIN 75 MG CAPSULE PO SCH ×2 (09:36→21:41)
[2023-07-16] MEDS: LISINOPRIL 20 MG TABLET PO SCH (09:36)
[2023-07-16] MEDS: amLODIPine BESYLATE 5 MG TABLET (FP) PO SCH (09:36)
[2023-07-16] MEDS: ENOXAPARIN NA (PORCINE) 40 MG/0.4 ML DISP.SYRIN SQ SCH (10:14)
[2023-07-16 10:18] LABS: BASO % 0.5 % (0-2.0); EOS % 1.1 % (0-4.5); HEMATOCRIT 39.6 % (32.4-45.2); HEMOGLOBIN 13.2 GM/dL (10.7-15.3); LYMPH % 14.1 % (8-40); MCH 27.6 pg (25.7-33.7); MCHC 33.4 g/dl (32.0-36.0); MEAN CELL VOLUME 82.5 fl (80-96); MEAN PLT VOLUME 8.2 fl (7.5-11.1); MONO % 9.8 % (3.8-10.2); NEUT % 74.5 % (42.8-82.8); PLATELET COUNT 253 10^3/uL (134-434); RBC 4.79 M/mm3 (3.60-5.2); RDW 14.9 % (11.6-15.6); WHITE BLOOD COUNT 9.7 K/mm3 (4.0-10.0)
[2023-07-16 10:56] LABS: POTASSIUM 4.8 mmol/L (3.5-5.1)
[2023-07-16 11:06] LABS: BILIRUBIN,TOTAL 0.8 mg/dL (0.2-1); TOT PROT 6.6 g/dl (6.4-8.2)
[2023-07-16 11:09] LABS: ALBUMIN 3.2 g/dl (3.4-5.0); BLOOD UREA NITROGEN 28.5 mg/dL (7-18); CALCIUM 8.7 mg/dL (8.5-10.1)
[2023-07-16 11:12] LABS: CREATININE 1.4 mg/dL (0.55-1.3)
[2023-07-16] MEDS ORDERED: LIDOCAINE HCL 1%, 10 MG/ML (20ML VIAL) ONE (12:31)
[2023-07-16] MEDS ORDERED: HEPARIN NA (PORCINE) 5,000 UNITS/ML 1ML VIAL ONE (12:32)
[2023-07-16] MEDS ORDERED: MIDAZOLAM HCL 2 MG/2 ML SINGLE DOSE VIAL ONE (14:34)
[2023-07-16] MEDS ORDERED: FENTANYL CITRATE/PF 50 MCG/ML VIAL ONE (14:34)
[2023-07-16] MEDS ORDERED: PROPOFOL 20 ML ONE (14:38)
[2023-07-16] MEDS ORDERED: LIDOCAINE HCL 1%, 10 MG/ML (20ML VIAL) INF ONE (14:49)
[2023-07-16] MEDS ORDERED: ceFAZolin SODIUM 1 GM VIAL IVPB ONE (14:50)
[2023-07-16] MEDS ORDERED: ONDANSETRON 4 MG/2 ML VIAL IVPUSH PRN ×2 (15:55→16:10)
[2023-07-16] MEDS ORDERED: LACTATED RINGERS SOLUTION 1,000 ML IV SCH (16:00)
[2023-07-16] MEDS: CLOPIDOGREL BISULFATE 75 MG TABLET (FP) PO SCH (16:52)
[2023-07-16] MEDS: LACTATED RINGERS SOLUTION 1,000 ML IV SCH (16:55)
[2023-07-16] MEDS: INSULIN (LEVEMIR) 100 UNITS/ML UNITS SQ SCH (21:40)
[2023-07-16] MEDS: ATORVASTATIN CA 20 MG TABLET (FP) PO SCH (21:41)
[2023-07-16] MEDS ORDERED: INSULIN (LEVEMIR) 100 UNITS/ML UNITS SQ SCH (22:00)
[2023-07-16 22:37] VITALS: RESP 18
[2023-07-16] MEDS: KETOROLAC TROMETHAMINE 15 MG/ML VIAL IVPUSH PRN (23:17)
[2023-07-17] MEDS: glipiZIDE-XL 10 MG TAB.ER.24 (FP) PO SCH ×2 (06:42→17:49)
[2023-07-17] MEDS: metFORMIN HCL 500 MG TABLET (FP) PO SCH ×2 (06:43→17:49)
[2023-07-17] MEDS: INSULIN SLIDING SCALE (NOVOLOG) 1 VIAL SQ SCH ×4 (06:49→22:17)
[2023-07-17] MEDS: KETOROLAC TROMETHAMINE 15 MG/ML VIAL IVPUSH PRN ×2 (08:39→22:42)
[2023-07-17] MEDS: PREGABALIN 75 MG CAPSULE PO SCH ×2 (11:27→22:10)
[2023-07-17] MEDS: ENOXAPARIN NA (PORCINE) 40 MG/0.4 ML DISP.SYRIN SQ SCH (11:27)
[2023-07-17] MEDS: LISINOPRIL 20 MG TABLET PO SCH (11:28)
[2023-07-17] MEDS: amLODIPine BESYLATE 5 MG TABLET (FP) PO SCH (11:28)
[2023-07-17] MEDS: CLOPIDOGREL BISULFATE 75 MG TABLET (FP) PO SCH (11:28)
[2023-07-17] MEDS: LACTATED RINGERS SOLUTION 1,000 ML IV SCH ×2 (13:31→17:45)
[2023-07-17] MEDS ORDERED: BENZOCAINE/MENTH/CETYLPYRD CL 1 EACH LOZENGE MM PRN (17:28)
[2023-07-17] MEDS: guaiFENesin/D-M SUGAR-FREE/ACLHOL-FREE (200 MG/10 MG) 5 ML PO PRN (18:51)
[2023-07-17] MEDS: INSULIN (LEVEMIR) 100 UNITS/ML UNITS SQ SCH (22:09)
[2023-07-17] MEDS: ATORVASTATIN CA 20 MG TABLET (FP) PO SCH (22:11)
[2023-07-18] MEDS: INSULIN SLIDING SCALE (NOVOLOG) 1 VIAL SQ SCH ×2 (06:14→12:28)
[2023-07-18] MEDS: glipiZIDE-XL 10 MG TAB.ER.24 (FP) PO SCH (06:45)
[2023-07-18] MEDS: metFORMIN HCL 500 MG TABLET (FP) PO SCH (06:46)
[2023-07-18] MEDS: ENOXAPARIN NA (PORCINE) 40 MG/0.4 ML DISP.SYRIN SQ SCH (09:38)
[2023-07-18] MEDS: amLODIPine BESYLATE 5 MG TABLET (FP) PO SCH (09:39)
[2023-07-18] MEDS: PREGABALIN 75 MG CAPSULE PO SCH (09:39)
[2023-07-18] MEDS: CLOPIDOGREL BISULFATE 75 MG TABLET (FP) PO SCH (09:39)
[2023-07-18] MEDS: LISINOPRIL 20 MG TABLET PO SCH (09:39)
[2023-07-18 10:24] LABS: BASO % 0.6 % (0-2.0); EOS % 1.8 % (0-4.5); HEMATOCRIT 35.5 % (32.4-45.2); HEMOGLOBIN 11.4 GM/dL (10.7-15.3); LYMPH % 16.5 % (8-40); MCH 27.3 pg (25.7-33.7); MCHC 32.1 g/dl (32.0-36.0); MEAN CELL VOLUME 84.9 fl (80-96); MEAN PLT VOLUME 8.3 fl (7.5-11.1); MONO % 11.1 % (3.8-10.2); PLATELET COUNT 233 10^3/uL (134-434); RBC 4.18 M/mm3 (3.60-5.2); RDW 14.6 % (11.6-15.6); WHITE BLOOD COUNT 8.4 K/mm3 (4.0-10.0)
[2023-07-18 10:52] LABS: ALBUMIN 3.2 g/dl (3.4-5.0); CALCIUM 8.7 mg/dL (8.5-10.1)
[2023-07-18 10:53] LABS: BLOOD UREA NITROGEN 21.6 mg/dL (7-18)
[2023-07-18 10:57] LABS: BILIRUBIN,TOTAL 0.8 mg/dL (0.2-1); CREATININE 1.1 mg/dL (0.55-1.3); TOT PROT 6.4 g/dl (6.4-8.2)
[2023-07-18 11:01] LABS: N-TERMINAL BNP 155.8 pg/ml (5-125)
[2023-07-18] MEDS: guaiFENesin/D-M SUGAR-FREE/ACLHOL-FREE (200 MG/10 MG) 5 ML PO PRN (11:26)
[2023-07-18] MEDS: KETOROLAC TROMETHAMINE 15 MG/ML VIAL IVPUSH PRN (11:29)
[2023-07-18] MEDS ORDERED: INSULIN (NOVOLOG) ASPART 100 UNITS/ML 10ML VIAL ONE (12:17)
[2023-07-18 13:50] VITALS: BP 134/70; TEMP 98.2
[2023-07-18 15:33] VITALS: PULSE 85
== END 2023-07-18 17:53 | disposition home or self-care (01) | DRG 272 ==
LOC: JER 13:43 → JERBED 16:08 → J8W 07-15 02:49
PROVIDERS: ADMIT Internal Medicine; ATTEND Internal Medicine
PROC: 047K3Z1 Dilation of Right Femoral Artery using Drug-Coated Balloon, Percutaneous Approach (ICD-10-PCS; 2023-07-16)
PROC: 04CK3ZZ Extirpation of Matter from Right Femoral Artery, Percutaneous Approach (ICD-10-PCS; 2023-07-16)
PROC: 047M3DZ Dilation of Right Popliteal Artery with Intraluminal Device, Percutaneous Approach (ICD-10-PCS; 2023-07-16)
PROC: B41DZZZ Fluoroscopy of Aorta and Bilateral Lower Extremity Arteries (ICD-10-PCS; 2023-07-16)
PROC: B41FZZZ Fluoroscopy of Right Lower Extremity Arteries (ICD-10-PCS; 2023-07-16)
PROC: 04CK3ZZ Extirpation of Matter from Right Femoral Artery, Percutaneous Approach (ICD-10-PCS; principal; 2023-07-16 15:00)
DX: E11.51 Type 2 diabetes mellitus with diabetic peripheral angiopathy without gangrene (principal); I10 Essential (primary) hypertension; E78.5 Hyperlipidemia, unspecified; J44.9 Chronic obstructive pulmonary disease, unspecified; E11.65 Type 2 diabetes mellitus with hyperglycemia; Z79.4 Long term (current) use of insulin; E11.40 Type 2 diabetes mellitus with diabetic neuropathy, unspecified
CPT/HCPCS: 36415; 71046-TC-FY; 73706-TC-RT; 76000-TC-FY; 80053; 80061; 82962; 83036; 83735; 83880; 84439; 84443; 85025; 85610; 85730; 86850; 86900; 86901; 93005; 93010; 94760; 99285-25; C1760; C1769; C1876; C1897; G0463-25; J1644; Q9967

== ENCOUNTER 2023-09-04 04:24 | Day surgery (SDC) | payer OTHER, BC ==
[2023-09-02 17:42] VITALS: BMI 35.2
[2023-09-04] MEDS ORDERED: HEPARIN NA (PORCINE) 5,000 UNITS/ML 1ML VIAL ONE ×3 (07:18→09:42)
[2023-09-04] MEDS ORDERED: LIDOCAINE HCL 1%, 10 MG/ML (20ML VIAL) ONE ×2 (07:18→09:42)
[2023-09-04] MEDS ORDERED: ceFAZolin SODIUM 1 GM VIAL IVPB ONE ×2 (07:38→08:20)
[2023-09-04] MEDS ORDERED: LIDOCAINE HCL 1%, 10 MG/ML (20ML VIAL) NR ONE ×2 (07:39→08:24)
[2023-09-04] MEDS ORDERED: HEPARIN NA (PORCINE) 5,000 UNITS/ML 1ML VIAL SQ ONE ×2 (07:40→08:34)
[2023-09-04] MEDS ORDERED: LIDOCAINE HCL/PF 2% SDV 5ML VIAL ONE (07:54)
[2023-09-04] MEDS ORDERED: PROPOFOL 20 ML ONE (07:54)
[2023-09-04] MEDS ORDERED: MIDAZOLAM HCL 2 MG/2 ML SINGLE DOSE VIAL ONE (07:54)
[2023-09-04] MEDS ORDERED: ceFAZolin SODIUM 1 GM VIAL ONE (08:18)
[2023-09-04] MEDS ORDERED: ONDANSETRON 4 MG/2 ML VIAL ONE (08:42)
[2023-09-04] MEDS ORDERED: ONDANSETRON 4 MG/2 ML VIAL IVPUSH PRN (09:15)
[2023-09-04] MEDS ORDERED: oxyCODONE HCL 5 MG TABLET PO PRN (09:15)
[2023-09-04] MEDS ORDERED: ACETAMINOPHEN 325 MG TABLET (FP) PO PRN (09:15)
[2023-09-04] MEDS ORDERED: LACTATED RINGERS SOLUTION 1,000 ML IV SCH (09:15)
[2023-09-04 11:05] VITALS: RESP 18
[2023-09-04 11:36] VITALS: BP 144/71; PULSE 78; TEMP 98.6
== END 2023-09-04 11:37 | disposition home or self-care (01) ==
LOC: JASU-SURG 04:24
PROVIDERS: ATTEND Surgery Vascular Surgery
PROC: 04CK3ZZ Extirpation of Matter from Right Femoral Artery, Percutaneous Approach (ICD-10-PCS; 2023-09-04)
PROC: 047K3Z1 Dilation of Right Femoral Artery using Drug-Coated Balloon, Percutaneous Approach (ICD-10-PCS; principal; 2023-09-04 08:00)
DX: I70.211 Atherosclerosis of native arteries of extremities with intermittent claudication, right leg (principal)
CPT/HCPCS: 37225; C2623; 36415; 76000-TC-FY; 82010; 82962; 94760; C1724; C1760; C1769; J1644

== ENCOUNTER 2024-07-05 10:42 | Inpatient (IN) | payer OTHER, BC ==
[2024-07-05 10:52] VITALS: BMI 31.1
[2024-07-05] MEDS ORDERED: morphine SULFATE 4 MG/ML VIAL ONE (12:16)
[2024-07-05] MEDS: morphine CARPU-JECT 4 MG/1 ML DISP.SYRIN IVPUSH ONE (12:21)
[2024-07-05 12:28] LABS: BASO % 0.5 % (0-2.0); HEMATOCRIT 35.8 % (32.4-45.2); HEMOGLOBIN 11.3 GM/dL (10.7-15.3); LYMPH % 16.8 % (8-40); MCH 26.9 pg (25.7-33.7); MCHC 31.7 g/dl (32.0-36.0); MEAN CELL VOLUME 84.9 fl (80-96); MEAN PLT VOLUME 7.5 fl (7.5-11.1); MONO % 5.9 % (3.8-10.2); NEUT % 75.8 % (42.8-82.8); PLATELET COUNT 314 10^3/uL (134-434); RBC 4.21 M/mm3 (3.60-5.2)
[2024-07-05 12:30] LABS: INR 1.22 (0.83-1.09); PROTHROMBIN TIME (PATIENT) 13.9 SEC (9.7-13.0)
[2024-07-05 12:33] LABS: ACTIVATED PTT 36.4 SECONDS (25.2-36.5)
[2024-07-05 12:38] LABS: POTASSIUM 4.7 mmol/L (3.5-5.1)
[2024-07-05 12:44] LABS: CALCIUM 9.6 mg/dL (8.5-10.1)
[2024-07-05 12:45] LABS: BLOOD UREA NITROGEN 21.9 mg/dL (7-18)
[2024-07-05 12:48] LABS: CREATININE 1.1 mg/dL (0.55-1.3)
[2024-07-05 12:49] LABS: BILIRUBIN,TOTAL 0.5 mg/dL (0.2-1); TOT PROT 7.5 g/dl (6.4-8.2)
[2024-07-05 14:23] LABS: HIV INTERPRETATION NEGATIVE (NEGATIVE)
[2024-07-05] MEDS ORDERED: DEXTROSE 5%-0.45% SALINE 1,000 ML IV SCH ×2 (16:15→19:34)
[2024-07-05] MEDS ORDERED: INSULIN ASPART SLIDING SCALE (NOVOLOG) 1 VIAL SQ SCH (16:30)
[2024-07-05] MEDS ORDERED: metFORMIN HCL 500 MG TABLET (FP) PO SCH (16:30)
[2024-07-05] MEDS ORDERED: glipiZIDE-XL 10 MG TAB.ER.24 (FP) PO SCH (16:30)
[2024-07-05] MEDS ORDERED: LIDOCAINE HCL 1%, 10 MG/ML (20ML VIAL) ONE (16:34)
[2024-07-05] MEDS ORDERED: HEPARIN NA (PORCINE) 5,000 UNITS/ML 1ML VIAL ONE (16:34)
[2024-07-05] MEDS: ceFAZolin SODIUM 1 GM VIAL IVPB ONE ×2 (17:05→18:22)
[2024-07-05] MEDS: HEPARIN NA (PORCINE) 5,000 UNITS/ML 1ML VIAL SQ ONE (17:06)
[2024-07-05] MEDS ORDERED: ONDANSETRON 4 MG/2 ML VIAL IVPUSH PRN ×2 (17:14→19:34)
[2024-07-05] MEDS ORDERED: LACTATED RINGERS SOLUTION 1,000 ML IV SCH ×2 (17:15→19:34)
[2024-07-05] MEDS ORDERED: PROPOFOL 40 ML ONE (17:25)
[2024-07-05] MEDS ORDERED: MIDAZOLAM HCL 2 MG/2 ML SINGLE DOSE VIAL ONE (18:06)
[2024-07-05] MEDS: LIDOCAINE HCL 1%, 10 MG/ML (20ML VIAL) INF ONE (18:24)
[2024-07-05] MEDS ORDERED: PROPOFOL 20 ML ONE ×3 (18:35→19:16)
[2024-07-05] MEDS: APIXABAN 5 MG TABLET PO ONE (20:07)
[2024-07-05] MEDS ORDERED: APIXABAN 5 MG TABLET PO SCH (22:00)
[2024-07-05] MEDS: INSULIN ASPART SLIDING SCALE (NOVOLOG) 1 VIAL SQ SCH (22:18)
[2024-07-05 22:53] VITALS: RESP 18
[2024-07-06] MEDS ORDERED: ACETAMINOPHEN 1000 MG/100 ML BAG IVPB ONE (04:01)
[2024-07-06] MEDS: morphine SULFATE 4 MG/ML VIAL IVPUSH ONE (04:20)
[2024-07-06] MEDS ORDERED: EMPAGLIFLOZIN (JARDIANCE) 25 MG TABLET PO SCH (07:00)
[2024-07-06] MEDS: metFORMIN HCL 500 MG TABLET (FP) PO SCH (07:16)
[2024-07-06] MEDS: EMPAGLIFLOZIN (JARDIANCE) 25 MG TABLET PO SCH (07:16)
[2024-07-06] MEDS: glipiZIDE-XL 10 MG TAB.ER.24 (FP) PO SCH (07:16)
[2024-07-06] MEDS: ASPIRIN 81 MG CHEWABLE TABLETS PO SCH (09:28)
[2024-07-06] MEDS: LISINOPRIL 20 MG TABLET PO SCH (09:28)
[2024-07-06] MEDS: CLOPIDOGREL BISULFATE 75 MG TABLET (FP) PO SCH (09:28)
[2024-07-06] MEDS: APIXABAN 5 MG TABLET PO SCH (09:29)
[2024-07-06] MEDS ORDERED: LISINOPRIL 20 MG TABLET PO SCH (10:00)
[2024-07-06] MEDS ORDERED: ASPIRIN 81 MG CHEWABLE TABLETS PO SCH (10:00)
[2024-07-06] MEDS ORDERED: CLOPIDOGREL BISULFATE 75 MG TABLET (FP) PO SCH (10:00)
[2024-07-06 10:53] LABS: BASO % 0.4 % (0-2.0); EOS % 1.5 % (0-4.5); HEMATOCRIT 32.7 % (32.4-45.2); HEMOGLOBIN 10.6 GM/dL (10.7-15.3); LYMPH % 14.6 % (8-40); MCH 27.2 pg (25.7-33.7); MCHC 32.3 g/dl (32.0-36.0); MEAN CELL VOLUME 84.2 fl (80-96); MEAN PLT VOLUME 7.6 fl (7.5-11.1); MONO % 7.7 % (3.8-10.2); NEUT % 75.8 % (42.8-82.8); PLATELET COUNT 283 10^3/uL (134-434); RBC 3.88 M/mm3 (3.60-5.2); WHITE BLOOD COUNT 11.5 K/mm3 (4.0-10.0)
[2024-07-06 11:20] LABS: POTASSIUM 4.9 mmol/L (3.5-5.1)
[2024-07-06 11:30] LABS: ALBUMIN 3.7 g/dl (3.4-5.0)
[2024-07-06 11:31] LABS: CALCIUM 8.9 mg/dL (8.5-10.1)
[2024-07-06 11:32] LABS: BLOOD UREA NITROGEN 15.8 mg/dL (7-18)
[2024-07-06 11:36] LABS: BILIRUBIN,TOTAL 0.8 mg/dL (0.2-1)
[2024-07-06 11:37] LABS: TOT PROT 6.9 g/dl (6.4-8.2)
[2024-07-06 16:29] VITALS: BP 134/66; PULSE 89; TEMP 99.9
[2024-07-06] MEDS ORDERED: ATORVASTATIN CA 20 MG TABLET (FP) PO SCH ×2 (22:00)
== END 2024-07-06 17:00 | disposition home or self-care (01) | DRG 272 ==
LOC: JER 10:42 → JERBED 11:31 → OBSVTOIN 15:11 → J6S 16:37
PROVIDERS: ADMIT Internal Medicine; ATTEND Internal Medicine
PROC: 04CK3ZZ Extirpation of Matter from Right Femoral Artery, Percutaneous Approach (ICD-10-PCS; 2024-07-05)
PROC: 047K341 Dilation of Right Femoral Artery with Drug-eluting Intraluminal Device, using Drug-Coated Balloon, Percutaneous Approach (ICD-10-PCS; 2024-07-05)
PROC: 04CK3ZZ Extirpation of Matter from Right Femoral Artery, Percutaneous Approach (ICD-10-PCS; 2024-07-05)
PROC: 047P3ZZ Dilation of Right Anterior Tibial Artery, Percutaneous Approach (ICD-10-PCS; 2024-07-05)
PROC: B40DYZZ Plain Radiography of Aorta and Bilateral Lower Extremity Arteries using Other Contrast (ICD-10-PCS; principal; 2024-07-05 18:30)
DX: E11.51 Type 2 diabetes mellitus with diabetic peripheral angiopathy without gangrene (principal); E11.40 Type 2 diabetes mellitus with diabetic neuropathy, unspecified; I10 Essential (primary) hypertension; I70.212 Atherosclerosis of native arteries of extremities with intermittent claudication, left leg; E78.5 Hyperlipidemia, unspecified; K21.9 Gastro-esophageal reflux disease without esophagitis
CPT/HCPCS: 36415; 76000-TC-FY; 80053; 82962; 85025; 85610; 85730; 86803; 86850; 86900; 86901; 87389; 93005; 93010; 94760; 99285-25; C1760; G0378; J1644

== ENCOUNTER 2024-09-30 11:58 | Inpatient (IN) | payer OTHER, BC ==
[2024-09-30] MEDS ORDERED: ACETAMINOPHEN INJECTION 100 ML ONE (13:24)
[2024-09-30] MEDS: ACETAMINOPHEN 1000 MG/100 ML BAG IVPB ONE (13:43)
[2024-09-30 13:45] LABS: BASO % 0.5 % (0-2.0); EOS % 0.2 % (0-4.5); HEMATOCRIT 31.7 % (32.4-45.2); HEMOGLOBIN 9.8 GM/dL (10.7-15.3); LYMPH % 10.8 % (8-40); MCH 24.8 pg (25.7-33.7); MEAN PLT VOLUME 7.7 fl (7.5-11.1); MONO % 5.2 % (3.8-10.2); NEUT % 83.3 % (42.8-82.8); PLATELET COUNT 414 10^3/uL (134-434); RBC 3.97 M/mm3 (3.60-5.2); RDW 15.5 % (11.6-15.6); WHITE BLOOD COUNT 15.3 K/mm3 (4.0-10.0)
[2024-09-30 13:54] LABS: INR 1.93 (0.83-1.09); PROTHROMBIN TIME (PATIENT) 21.4 SEC (9.7-13.0)
[2024-09-30 13:56] LABS: ACTIVATED PTT 40.2 SECONDS (25.2-36.5)
[2024-09-30] MEDS ORDERED: VANCOMYCIN HCL 1,500 MG in DEXTROSE 5%-WATER - 500 ML IVPB ONE (14:07)
[2024-09-30 14:11] LABS: CHLORIDE 102 mmol/L (98-107); SODIUM 131 mmol/L (136-145)
[2024-09-30 14:15] LABS: ALBUMIN 3.6 g/dl (3.4-5.0); ANION GAP 5 mmol/L (4-13); CALCIUM 9.7 mg/dL (8.5-10.1); CO2 24 mmol/L (21-32); GLUCOSE,RANDOM 165 mg/dL (74-106)
[2024-09-30 14:17] LABS: CREATININE 1.5 mg/dL (0.55-1.3); SGOT/AST 92 U/L (15-37); SGPT/ALT 24 U/L (13-61)
[2024-09-30 14:18] LABS: BILIRUBIN,TOTAL 0.8 mg/dL (0.2-1); TOT PROT 8.2 g/dl (6.4-8.2)
[2024-09-30 14:20] LABS: ALK PHOS 87 U/L (45-117)
[2024-09-30 14:27] LABS: ERYTHROCYTE SEDIMENTATION RATE 94 mm/hr (0-30)
[2024-09-30] MEDS ORDERED: PIPERACILLIN/TAZOB 4.5 GM 4.5 GM/100 ML BAG IVPB ONE (14:47)
[2024-09-30] MEDS: PIPERACILLIN/TAZOB 4.5 GM 4.5 GM in DEXTROSE 5%-WATER 100 ML IVPB ONE (14:58)
[2024-09-30] MEDS ORDERED: VANCOMYCIN HCL IN 5 % DEXTROSE 1,500 MG/300 ML BAG IVPB ONE (15:17)
[2024-09-30 15:26] LABS: CALCIUM 9.6 mg/dL (8.5-10.1); CHLORIDE 104 mmol/L (98-107); SODIUM 133 mmol/L (136-145)
[2024-09-30 15:27] LABS: BLOOD UREA NITROGEN 39.1 mg/dL (7-18); CO2 22 mmol/L (21-32); GLUCOSE,RANDOM 101 mg/dL (74-106)
[2024-09-30 15:31] LABS: CREATININE 1.5 mg/dL (0.55-1.3)
[2024-09-30 15:35] LABS: ANION GAP 7 mmol/L (4-13); POTASSIUM 6.9 mmol/L (3.5-5.1)
[2024-09-30] MEDS ORDERED: MORPHINE SULFATE 2 MG/ML SYRINGE ONE (16:00)
[2024-09-30] MEDS: morphine SULFATE 4 MG/ML VIAL IVPUSH ONE (16:03)
[2024-09-30 18:24] VITALS: BMI 29.9
[2024-09-30] MEDS: VANCOMYCIN HCL IN 5 % DEXTROSE 1,500 MG/300 ML BAG IVPB ONE (18:52)
[2024-09-30] MEDS: ENOXAPARIN NA (PORCINE) 60 MG/0.6 ML DISP.SYRIN SQ SCH (23:21)
[2024-10-01] MEDS: PIPERACILLIN/TAZOB 3.375 GM 50 ML IVPB SCH (01:06)
[2024-10-01] MEDS: ACETAMINOPHEN 1000 MG/100 ML BAG IVPB PRN (04:07)
[2024-10-01] MEDS: diphenhydrAMINE HCL 25 MG CAPSULE (FP) PO ONE (05:49)
[2024-10-01] MEDS: glipiZIDE-XL 10 MG TAB.ER.24 (FP) PO SCH (06:28)
[2024-10-01] MEDS: INSULIN ASPART SLIDING SCALE (NOVOLOG) 1 VIAL SQ SCH (06:28)
[2024-10-01 08:41] LABS: BASO % 0.7 % (0-2.0); EOS % 1.5 % (0-4.5); HEMATOCRIT 30.5 % (32.4-45.2); HEMOGLOBIN 9.5 GM/dL (10.7-15.3); LYMPH % 18.8 % (8-40); MEAN CELL VOLUME 80.6 fl (80-96); MEAN PLT VOLUME 7.9 fl (7.5-11.1); PLATELET COUNT 406 10^3/uL (134-434); RBC 3.79 M/mm3 (3.60-5.2); RDW 15.7 % (11.6-15.6); WHITE BLOOD COUNT 8.3 K/mm3 (4.0-10.0)
[2024-10-01 09:06] LABS: POTASSIUM 5.8 mmol/L (3.5-5.1)
[2024-10-01 09:11] LABS: ALBUMIN 3.3 g/dl (3.4-5.0); CALCIUM 9.1 mg/dL (8.5-10.1)
[2024-10-01 09:12] LABS: BLOOD UREA NITROGEN 36.2 mg/dL (7-18)
[2024-10-01 09:15] LABS: CREATININE 1.7 mg/dL (0.55-1.3); TOT PROT 6.9 g/dl (6.4-8.2)
[2024-10-01] MEDS: LISINOPRIL 20 MG TABLET PO SCH (10:10)
[2024-10-01] MEDS: PANTOPRAZOLE 40 MG TABLET PO SCH (10:17)
[2024-10-01] MEDS: CEFTRIAXONE 2 GM-D5W BAG 2 GM/50 ML BAG IVPB SCH (16:43)
[2024-10-01] MEDS: APIXABAN 5 MG TABLET PO SCH (22:03)
[2024-10-01] MEDS: ATORVASTATIN CA 10 MG TABLET (FP) PO SCH (22:03)
[2024-10-01] MEDS: INSULIN (LEVEMIR) 100 UNITS/ML UNITS SQ SCH (22:04)
[2024-10-02] MEDS: PIPERACILLIN/TAZOB 3.375 GM 3.375 GM in DEXTROSE 5%-WATER - 50 ML IVPB SCH (01:10)
[2024-10-02 08:35] LABS: BASO % 0.8 % (0-2.0); EOS % 0.2 % (0-4.5); HEMATOCRIT 31.9 % (32.4-45.2); HEMOGLOBIN 9.9 GM/dL (10.7-15.3); LYMPH % 18.8 % (8-40); MCH 24.9 pg (25.7-33.7); MCHC 31.1 g/dl (32.0-36.0); MEAN CELL VOLUME 80.1 fl (80-96); MEAN PLT VOLUME 7.9 fl (7.5-11.1); NEUT % 65.2 % (42.8-82.8); PLATELET COUNT 408 10^3/uL (134-434); RBC 3.98 M/mm3 (3.60-5.2); RDW 15.1 % (11.6-15.6); WHITE BLOOD COUNT 8.3 K/mm3 (4.0-10.0)
[2024-10-02 09:00] LABS: POTASSIUM 4.6 mmol/L (3.5-5.1)
[2024-10-02 09:03] LABS: ALBUMIN 3.6 g/dl (3.4-5.0); BLOOD UREA NITROGEN 27.8 mg/dL (7-18)
[2024-10-02 09:06] LABS: CREATININE 1.4 mg/dL (0.55-1.3)
[2024-10-02 09:07] LABS: BILIRUBIN,TOTAL 0.4 mg/dL (0.2-1); TOT PROT 7.8 g/dl (6.4-8.2)
[2024-10-02] MEDS: CLOPIDOGREL BISULFATE 75 MG TABLET (FP) PO SCH (09:21)
[2024-10-03 07:57] LABS: BASO % 0.8 % (0-2.0); EOS % 0.4 % (0-4.5); HEMATOCRIT 31.1 % (32.4-45.2); HEMOGLOBIN 9.7 GM/dL (10.7-15.3); LYMPH % 20.2 % (8-40); MCH 24.8 pg (25.7-33.7); MCHC 31.2 g/dl (32.0-36.0); MEAN CELL VOLUME 79.2 fl (80-96); MEAN PLT VOLUME 7.5 fl (7.5-11.1); MONO % 16.9 % (3.8-10.2); NEUT % 61.7 % (42.8-82.8); PLATELET COUNT 378 10^3/uL (134-434); RBC 3.93 M/mm3 (3.60-5.2); RDW 15.2 % (11.6-15.6); WHITE BLOOD COUNT 6.9 K/mm3 (4.0-10.0)
[2024-10-03 08:11] LABS: POTASSIUM 4.6 mmol/L (3.5-5.1)
[2024-10-03 08:14] LABS: CALCIUM 8.7 mg/dL (8.5-10.1)
[2024-10-03 08:15] LABS: ALBUMIN 3.3 g/dl (3.4-5.0); BLOOD UREA NITROGEN 31.1 mg/dL (7-18)
[2024-10-03 08:18] LABS: CREATININE 1.3 mg/dL (0.55-1.3)
[2024-10-03 08:19] LABS: BILIRUBIN,TOTAL 0.4 mg/dL (0.2-1); TOT PROT 7.2 g/dl (6.4-8.2)
[2024-10-03 12:14] LABS: INR 1.6 (0.83-1.09); PROTHROMBIN TIME (PATIENT) 18.1 SEC (9.7-13.0)
[2024-10-04] MEDS: ACETAMINOPHEN 1000 MG/100 ML BAG IVPB ONE (02:45)
[2024-10-04 08:25] LABS: BASO % 0.7 % (0-2.0); EOS % 0.7 % (0-4.5); HEMATOCRIT 30.9 % (32.4-45.2); MCH 25.6 pg (25.7-33.7); MCHC 32.4 g/dl (32.0-36.0); MEAN PLT VOLUME 7.8 fl (7.5-11.1); MONO % 11.3 % (3.8-10.2); NEUT % 65.3 % (42.8-82.8); PLATELET COUNT 397 10^3/uL (134-434); RBC 3.91 M/mm3 (3.60-5.2); RDW 15.5 % (11.6-15.6); WHITE BLOOD COUNT 6.4 K/mm3 (4.0-10.0)
[2024-10-04 08:39] LABS: POTASSIUM 4.8 mmol/L (3.5-5.1)
[2024-10-04 08:47] LABS: ALBUMIN 3.3 g/dl (3.4-5.0); BLOOD UREA NITROGEN 40.3 mg/dL (7-18)
[2024-10-04 08:48] LABS: CALCIUM 8.8 mg/dL (8.5-10.1)
[2024-10-04 08:49] LABS: BILIRUBIN,TOTAL 0.5 mg/dL (0.2-1); TOT PROT 7.2 g/dl (6.4-8.2)
[2024-10-04 08:50] LABS: CREATININE 1.8 mg/dL (0.55-1.3)
[2024-10-04] MEDS ORDERED: PROPOFOL 20 ML ONE ×2 (17:22→18:32)
[2024-10-04] MEDS ORDERED: LIDOCAINE HCL 1%, 10 MG/ML (20ML VIAL) ONE (17:33)
[2024-10-04] MEDS ORDERED: MIDAZOLAM HCL 2 MG/2 ML SINGLE DOSE VIAL ONE (17:52)
[2024-10-04] MEDS: ceFAZolin SODIUM 1 GM VIAL IVPB ONE (18:05)
[2024-10-04] MEDS: LIDOCAINE HCL 1%, 10 MG/ML (20ML VIAL) NR ONE (18:15)
[2024-10-04] MEDS ORDERED: HEPARIN NA (PORCINE) 5,000 UNITS/ML 1ML VIAL ONE ×2 (18:21→18:22)
[2024-10-04] MEDS ORDERED: METOPROLOL TARTRATE 5 MG/5 ML VIAL ONE (19:01)
[2024-10-04] MEDS: APIXABAN 5 MG TABLET PO SCH (20:25)
[2024-10-04 22:11] VITALS: RESP 18
[2024-10-04] MEDS: ATORVASTATIN CA 20 MG TABLET (FP) PO SCH (22:14)
[2024-10-04] MEDS: INSULIN ASPART SLIDING SCALE (NOVOLOG) 1 VIAL SQ SCH (22:15)
[2024-10-04] MEDS: INSULIN (LEVEMIR) 100 UNITS/ML UNITS SQ SCH (22:15)
[2024-10-05] MEDS: ACETAMINOPHEN 325 MG TABLET (FP) PO ONE (06:36)
[2024-10-05 06:39] LABS: POTASSIUM 4.8 mmol/L (3.5-5.1)
[2024-10-05 06:42] LABS: ALBUMIN 3.2 g/dl (3.4-5.0); BLOOD UREA NITROGEN 32.2 mg/dL (7-18); CALCIUM 8.5 mg/dL (8.5-10.1)
[2024-10-05 06:46] LABS: CREATININE 1.1 mg/dL (0.55-1.3)
[2024-10-05 06:47] LABS: BILIRUBIN,TOTAL 0.6 mg/dL (0.2-1); TOT PROT 7.1 g/dl (6.4-8.2)
[2024-10-05 06:50] LABS: BASO % 0.3 % (0-2.0); HEMATOCRIT 29.6 % (32.4-45.2); HEMOGLOBIN 9.3 GM/dL (10.7-15.3); MCH 24.9 pg (25.7-33.7); MCHC 31.5 g/dl (32.0-36.0); MEAN PLT VOLUME 7.8 fl (7.5-11.1); MONO % 11.1 % (3.8-10.2); NEUT % 78.6 % (42.8-82.8); PLATELET COUNT 386 10^3/uL (134-434); RBC 3.75 M/mm3 (3.60-5.2); RDW 15.2 % (11.6-15.6)
[2024-10-05] MEDS: glipiZIDE-XL 10 MG TAB.ER.24 (FP) PO SCH (08:00)
[2024-10-05] MEDS: LISINOPRIL 20 MG TABLET PO SCH (10:11)
[2024-10-05] MEDS: PANTOPRAZOLE 40 MG TABLET PO SCH (10:12)
[2024-10-05] MEDS: CLOPIDOGREL BISULFATE 75 MG TABLET (FP) PO SCH (10:12)
[2024-10-05] MEDS: ONDANSETRON 4 MG/2 ML VIAL IVPUSH PRN (11:50)
[2024-10-05] MEDS: ACETAMINOPHEN 500 MG TABLET (FP) PO SCH (20:19)
[2024-10-05 20:39] LABS: N-TERMINAL BNP 1078.9 pg/ml (5-125)
[2024-10-06 22:21] VITALS: TEMP 98.1
[2024-10-07 07:03] VITALS: BP 118/59; PULSE 75
[2024-10-07 08:24] LABS: BASO % 0.5 % (0-2.0); EOS % 3.2 % (0-4.5); HEMATOCRIT 28.3 % (32.4-45.2); HEMOGLOBIN 8.9 GM/dL (10.7-15.3); LYMPH % 17.7 % (8-40); MCH 24.7 pg (25.7-33.7); MCHC 31.4 g/dl (32.0-36.0); MEAN CELL VOLUME 78.7 fl (80-96); MEAN PLT VOLUME 7.6 fl (7.5-11.1); MONO % 9.5 % (3.8-10.2); NEUT % 69.1 % (42.8-82.8); PLATELET COUNT 335 10^3/uL (134-434); RBC 3.59 M/mm3 (3.60-5.2); RDW 15.5 % (11.6-15.6); WHITE BLOOD COUNT 7.7 K/mm3 (4.0-10.0)
[2024-10-07 08:59] LABS: POTASSIUM 5.1 mmol/L (3.5-5.1)
[2024-10-07 09:04] LABS: CALCIUM 8.8 mg/dL (8.5-10.1)
[2024-10-07 09:05] LABS: ALBUMIN 2.9 g/dl (3.4-5.0); BLOOD UREA NITROGEN 39.2 mg/dL (7-18)
[2024-10-07 09:08] LABS: CREATININE 1.3 mg/dL (0.55-1.3)
[2024-10-07 09:09] LABS: BILIRUBIN,TOTAL 0.3 mg/dL (0.2-1); TOT PROT 6.6 g/dl (6.4-8.2)
[2024-10-07] MEDS: EMPAGLIFLOZIN (JARDIANCE) 10 MG TABLET PO SCH (11:40)
== END 2024-10-07 11:42 | disposition home or self-care (01) | DRG 271 ==
LOC: JER 11:58 → JERBED 15:22 → OBSVTOIN 15:22 → J7W 17:29
PROVIDERS: ADMIT Internal Medicine; ATTEND Internal Medicine
PROC: 047K3Z1 Dilation of Right Femoral Artery using Drug-Coated Balloon, Percutaneous Approach (ICD-10-PCS; 2024-10-04)
PROC: 047P3ZZ Dilation of Right Anterior Tibial Artery, Percutaneous Approach (ICD-10-PCS; 2024-10-04)
PROC: 04CK3ZZ Extirpation of Matter from Right Femoral Artery, Percutaneous Approach (ICD-10-PCS; 2024-10-04)
PROC: B40DYZZ Plain Radiography of Aorta and Bilateral Lower Extremity Arteries using Other Contrast (ICD-10-PCS; 2024-10-04)
PROC: B40FYZZ Plain Radiography of Right Lower Extremity Arteries using Other Contrast (ICD-10-PCS; 2024-10-04)
PROC: 04CK3ZZ Extirpation of Matter from Right Femoral Artery, Percutaneous Approach (ICD-10-PCS; principal; 2024-10-04 17:58)
DX: E11.52 Type 2 diabetes mellitus with diabetic peripheral angiopathy with gangrene (principal); I96 Gangrene, not elsewhere classified; L97.518 Non-pressure chronic ulcer of other part of right foot with other specified severity; E11.621 Type 2 diabetes mellitus with foot ulcer; I70.235 Atherosclerosis of native arteries of right leg with ulceration of other part of foot; E11.42 Type 2 diabetes mellitus with diabetic polyneuropathy; I10 Essential (primary) hypertension; M79.606 Pain in leg, unspecified; D64.9 Anemia, unspecified; E78.5 Hyperlipidemia, unspecified; K21.9 Gastro-esophageal reflux disease without esophagitis; E66.9 Obesity, unspecified; Z68.30 Body mass index [BMI] 30.0-30.9, adult
CPT/HCPCS: 36415; 71045-TC-FY; 73630-TC-RT-FY; 73718-TC-RT; 76000-TC-FY; 80048; 80053; 80061; 82962; 83036; 83605; 83880; 84132; 84443; 85025; 85610; 85651; 85730; 86140; 86850; 86900; 86901; 93005; 93010; 93306-TC; 93922; 93925-TC; 94760; 99285-25; C1760; J0131; J1644

== ENCOUNTER 2024-11-21 08:04 | Inpatient (IN) | payer OTHER, BC ==
[2024-11-21 08:16] VITALS: BMI 29.0
[2024-11-21 10:26] LABS: INR 1.25 (0.83-1.09); PROTHROMBIN TIME (PATIENT) 13.6 SEC (9.7-13.0)
[2024-11-21 10:37] LABS: BASO % 0.6 % (0-2.0); EOS % 0.5 % (0-4.5); HEMATOCRIT 24.5 % (32.4-45.2); HEMOGLOBIN 7.8 GM/dL (10.7-15.3); LYMPH % 16.9 % (8-40); MCH 23.5 pg (25.7-33.7); MCHC 31.7 g/dl (32.0-36.0); MEAN CELL VOLUME 74.2 fl (80-96); MEAN PLT VOLUME 6.9 fl (7.5-11.1); MONO % 14.4 % (3.8-10.2); NEUT % 67.6 % (42.8-82.8); PLATELET COUNT 468 10^3/uL (134-434); RBC 3.29 M/mm3 (3.60-5.2); RDW 16.1 % (11.6-15.6); WHITE BLOOD COUNT 9.5 K/mm3 (4.0-10.0)
[2024-11-21] MEDS ORDERED: ACETAMINOPHEN INJECTION 100 ML ONE (11:05)
[2024-11-21 11:09] LABS: CHLORIDE 108 mmol/L (98-107); POTASSIUM 4.6 mmol/L (3.5-5.1); SODIUM 137 mmol/L (136-145)
[2024-11-21] MEDS: ACETAMINOPHEN 1000 MG/100 ML BAG IVPB ONE (11:10)
[2024-11-21] MEDS: SODIUM CHLORIDE 0.9% 500 ML INFUS.BAG IV ONE (11:10)
[2024-11-21 11:11] LABS: CALCIUM 8.9 mg/dL (8.5-10.1)
[2024-11-21 11:12] LABS: ALBUMIN 3.6 g/dl (3.4-5.0); ANION GAP 9 mmol/L (4-13); BLOOD UREA NITROGEN 28.7 mg/dL (7-18); CO2 20 mmol/L (21-32)
[2024-11-21 11:15] LABS: CREATININE 1.3 mg/dL (0.55-1.3); SGOT/AST 18 U/L (15-37); SGPT/ALT 14 U/L (13-61)
[2024-11-21 11:16] LABS: TOT PROT 7.4 g/dl (6.4-8.2)
[2024-11-21 11:17] LABS: BILIRUBIN,TOTAL 0.5 mg/dL (0.2-1)
[2024-11-21 11:20] LABS: GLUCOSE,RANDOM 42 mg/dL (74-106)
[2024-11-21] MEDS ORDERED: PIPERACILLIN/TAZOB 3.375 GM 3.375 GM/50 ML BAG IVPB ONE ×2 (11:21→11:23)
[2024-11-21] MEDS: PIPERACILLIN/TAZOB 3.375 GM 3.375 GM in DEXTROSE 5%-WATER - 50 ML IVPB ONE (11:30)
[2024-11-21 11:33] LABS: ALK PHOS 73 U/L (45-117)
[2024-11-21] MEDS ORDERED: VANCOMYCIN/WATER 1250 MG 1,250 MG/250 ML BAG IVPB ONE (11:46)
[2024-11-21 11:50] LABS: HIV INTERPRETATION NEGATIVE (NEGATIVE)
[2024-11-21] MEDS: VANCOMYCIN/WATER 1250 MG 1,250 MG/250 ML BAG IVPB ONE (11:50)
[2024-11-21 11:51] LABS: HCV DIAGNOSTIC IN-HOUSE W/RFLX NON-REACTIVE (NONREACTIVE)
[2024-11-21] MEDS: DEXTROSE 50%-WATER - 25 GM/50 ML VIAL IVPUSH ONE (12:03)
[2024-11-21] MEDS ORDERED: DEXTROSE 50%-WATER 25 GM/50 ML DISP.SYRIN ONE (12:03)
[2024-11-21] MEDS ORDERED: DEXTROSE 50%-WATER - 25 GM/50 ML VIAL IVPUSH PRN (12:35)
[2024-11-21] MEDS: INSULIN ASPART SLIDING SCALE (NOVOLOG) 1 VIAL SQ SCH (17:34)
[2024-11-21] MEDS: PIPERACILLIN/TAZOB 4.5 GM 4.5 GM/100 ML BAG IVPB SCH (17:59)
[2024-11-21] MEDS ORDERED: PIPERACILLIN/TAZOB 4.5 GM 4.5 GM in DEXTROSE 5%-WATER 100 ML IVPB SCH (18:00)
[2024-11-21 20:45] LABS: IRON SERUM 19 ug/dL (50-175); TOTAL IRON BINDING CAPACITY 388 ug/dL (250-450)
[2024-11-21] MEDS: ATORVASTATIN CA 20 MG TABLET (FP) PO SCH (21:41)
[2024-11-22] MEDS ORDERED: DEXTROSE 50%-WATER 25 GM/50 ML DISP.SYRIN IVPUSH PRN ×2 (00:04→13:55)
[2024-11-22] MEDS: ACETAMINOPHEN 1000 MG/100 ML BAG IVPB ONE (03:05)
[2024-11-22 08:55] LABS: BASO % 1.2 % (0-2.0); EOS % 1.2 % (0-4.5); HEMATOCRIT 24.4 % (32.4-45.2); HEMOGLOBIN 7.6 GM/dL (10.7-15.3); LYMPH % 18.9 % (8-40); MCH 23.4 pg (25.7-33.7); MEAN CELL VOLUME 75.5 fl (80-96); MEAN PLT VOLUME 7.5 fl (7.5-11.1); MONO % 12.9 % (3.8-10.2); NEUT % 65.8 % (42.8-82.8); PLATELET COUNT 432 10^3/uL (134-434); RBC 3.23 M/mm3 (3.60-5.2); RDW 15.8 % (11.6-15.6); WHITE BLOOD COUNT 4.8 K/mm3 (4.0-10.0)
[2024-11-22 09:12] LABS: POTASSIUM 4.6 mmol/L (3.5-5.1)
[2024-11-22 09:20] LABS: ALBUMIN 3.2 g/dl (3.4-5.0); BLOOD UREA NITROGEN 16.6 mg/dL (7-18)
[2024-11-22 09:21] LABS: CALCIUM 8.4 mg/dL (8.5-10.1)
[2024-11-22 09:25] LABS: BILIRUBIN,TOTAL 0.6 mg/dL (0.2-1); CREATININE 1.2 mg/dL (0.55-1.3)
[2024-11-22 09:30] LABS: TOT PROT 6.7 g/dl (6.4-8.2)
[2024-11-22] MEDS ORDERED: PROPOFOL 20 ML ONE (11:36)
[2024-11-22] MEDS ORDERED: MIDAZOLAM HCL 2 MG/2 ML SINGLE DOSE VIAL ONE (11:36)
[2024-11-22] MEDS ORDERED: LIDOCAINE HCL/PF 2% SDV 5ML VIAL ONE (11:36)
[2024-11-22] MEDS ORDERED: LIDOCAINE HCL 1%, 10 MG/ML (20ML VIAL) ONE ×2 (11:38→11:39)
[2024-11-22] MEDS ORDERED: BUPIVACAINE HCL/PF 0.5% (5MG/ML) 10 ML VIAL ONE (11:38)
[2024-11-22] MEDS ORDERED: LIDOCAINE 1%/EPI 1:100000 (20 ML MULTI DOSE VIAL) ONE (11:38)
[2024-11-22] MEDS ORDERED: BUPIVACAINE HCL/PF 0.25% (2.5MG/ML) 10 ML VIAL ONE (11:39)
[2024-11-22] MEDS ORDERED: PROPOFOL 40 ML ONE (11:57)
[2024-11-22] MEDS ORDERED: PIPERACILLIN/TAZOBACTAM 3.375 GM VIAL IVPB ONE (12:06)
[2024-11-22] MEDS: PIPERACILLIN/TAZOBACTAM 3.375 GM VIAL IVPB ONE (12:28)
[2024-11-22] MEDS: BUPIVACAINE HCL/PF 0.5% (5 MG/ML) 30 ML VIAL IJ ONE ×3 (12:35)
[2024-11-22] MEDS: LIDOCAINE HCL 1%, 10 MG/ML (20ML VIAL) INF ONE ×3 (12:35)
[2024-11-22] MEDS ORDERED: THROMBIN (BOVINE) 5,000 UNIT VIAL TP ONE (12:43)
[2024-11-22] MEDS ORDERED: GENTAMICIN SO4 80 MG/2 ML VIAL ONE (12:52)
[2024-11-22] MEDS ORDERED: ONDANSETRON 4 MG/2 ML VIAL IVPUSH PRN (13:41)
[2024-11-22] MEDS: INSULIN ASPART SLIDING SCALE (NOVOLOG) 1 VIAL SQ SCH (17:02)
[2024-11-22] MEDS: ACETAMINOPHEN 1000 MG/100 ML BAG IVPB PRN (18:01)
[2024-11-22] MEDS: SODIUM CHLORIDE 1,000 ML IV SCH (18:15)
[2024-11-22] MEDS: PIPERACILLIN/TAZOB 4.5 GM 4.5 GM/100 ML BAG IVPB SCH (18:31)
[2024-11-22] MEDS ORDERED: guaiFENesin/CODEINE 10 ML UNIT-DOSE CUPS PO PRN (19:51)
[2024-11-22] MEDS: ATORVASTATIN CA 20 MG TABLET (FP) PO SCH (21:18)
[2024-11-22] MEDS: traMADol HCL 50 MG TABLET PO ONE (23:23)
[2024-11-23] MEDS ORDERED: guaiFENesin 200 MG/10 ML 10 ML UNIT-DOSE CUPS PO PRN (01:21)
[2024-11-23] MEDS: metFORMIN HCL 500 MG TABLET (FP) PO SCH (06:42)
[2024-11-23 08:26] LABS: POTASSIUM 4.2 mmol/L (3.5-5.1)
[2024-11-23 08:28] LABS: BASO % 0.6 % (0-2.0); EOS % 2.2 % (0-4.5); HEMATOCRIT 23.6 % (32.4-45.2); HEMOGLOBIN 7.4 GM/dL (10.7-15.3); LYMPH % 17.8 % (8-40); MCH 23.2 pg (25.7-33.7); MCHC 31.5 g/dl (32.0-36.0); MEAN CELL VOLUME 73.7 fl (80-96); MEAN PLT VOLUME 7.4 fl (7.5-11.1); MONO % 10.9 % (3.8-10.2); NEUT % 68.5 % (42.8-82.8); PLATELET COUNT 409 10^3/uL (134-434); RBC 3.21 M/mm3 (3.60-5.2); WHITE BLOOD COUNT 6.1 K/mm3 (4.0-10.0)
[2024-11-23 08:44] LABS: ALBUMIN 3.1 g/dl (3.4-5.0); BLOOD UREA NITROGEN 15.2 mg/dL (7-18); CALCIUM 8.4 mg/dL (8.5-10.1)
[2024-11-23 08:47] LABS: CREATININE 1.1 mg/dL (0.55-1.3)
[2024-11-23 08:49] LABS: TOT PROT 6.4 g/dl (6.4-8.2)
[2024-11-23 08:50] LABS: BILIRUBIN,TOTAL 0.8 mg/dL (0.2-1)
[2024-11-23] MEDS: EMPAGLIFLOZIN (JARDIANCE) 25 MG TABLET PO SCH (10:03)
[2024-11-23] MEDS: LISINOPRIL 20 MG TABLET PO SCH (10:03)
[2024-11-23] MEDS: CLOPIDOGREL BISULFATE 75 MG TABLET (FP) PO SCH (10:03)
[2024-11-23] MEDS: ASPIRIN 81 MG CHEWABLE TABLETS PO SCH (10:03)
[2024-11-23] MEDS: APIXABAN 5 MG TABLET PO SCH (10:04)
[2024-11-23] MEDS: PANTOPRAZOLE 40 MG TABLET PO SCH (10:04)
[2024-11-23] MEDS: ACETAMINOPHEN WITH CODEINE 300MG/30MG TABLET PO PRN (14:42)
[2024-11-24 09:18] LABS: BASO % 0.8 % (0-2.0); EOS % 2.4 % (0-4.5); HEMATOCRIT 22.4 % (32.4-45.2); LYMPH % 15.8 % (8-40); MCH 23.1 pg (25.7-33.7); MCHC 30.7 g/dl (32.0-36.0); MEAN PLT VOLUME 7.6 fl (7.5-11.1); MONO % 9.3 % (3.8-10.2); NEUT % 71.7 % (42.8-82.8); PLATELET COUNT 412 10^3/uL (134-434); RBC 2.99 M/mm3 (3.60-5.2); WHITE BLOOD COUNT 6.5 K/mm3 (4.0-10.0)
[2024-11-24 09:31] LABS: HEMOGLOBIN 6.9 GM/dL (10.7-15.3)
[2024-11-24 09:41] LABS: POTASSIUM 4.4 mmol/L (3.5-5.1)
[2024-11-24 09:44] LABS: ALBUMIN 2.9 g/dl (3.4-5.0); BLOOD UREA NITROGEN 12.8 mg/dL (7-18); CALCIUM 8.1 mg/dL (8.5-10.1)
[2024-11-24 09:50] LABS: TOT PROT 6.2 g/dl (6.4-8.2)
[2024-11-24 09:54] LABS: BILIRUBIN,TOTAL 0.4 mg/dL (0.2-1)
[2024-11-25 05:55] VITALS: RESP 18
[2024-11-25 08:32] LABS: BASO % 0.6 % (0-2.0); EOS % 2.2 % (0-4.5); HEMATOCRIT 25.7 % (32.4-45.2); HEMOGLOBIN 8.3 GM/dL (10.7-15.3); LYMPH % 22.1 % (8-40); MCH 24.5 pg (25.7-33.7); MCHC 32.2 g/dl (32.0-36.0); MEAN CELL VOLUME 76.2 fl (80-96); MEAN PLT VOLUME 6.9 fl (7.5-11.1); MONO % 9.4 % (3.8-10.2); NEUT % 65.7 % (42.8-82.8); PLATELET COUNT 407 10^3/uL (134-434); RBC 3.38 M/mm3 (3.60-5.2); RDW 17.7 % (11.6-15.6); WHITE BLOOD COUNT 7.4 K/mm3 (4.0-10.0)
[2024-11-25 08:56] LABS: POTASSIUM 4.3 mmol/L (3.5-5.1)
[2024-11-25 08:58] LABS: CALCIUM 8.3 mg/dL (8.5-10.1)
[2024-11-25 08:59] LABS: BLOOD UREA NITROGEN 11.2 mg/dL (7-18)
[2024-11-25 09:00] LABS: ALBUMIN 2.8 g/dl (3.4-5.0)
[2024-11-25 09:02] LABS: CREATININE 0.9 mg/dL (0.55-1.3)
[2024-11-25 09:03] LABS: BILIRUBIN,TOTAL 0.7 mg/dL (0.2-1)
[2024-11-25 09:04] LABS: TOT PROT 6.3 g/dl (6.4-8.2)
[2024-11-26 13:42] VITALS: BP 138/56; PULSE 82; TEMP 97.5
== END 2024-11-26 18:34 | disposition home or self-care (01) | DRG 617 ==
LOC: JER 08:04 → JERBED 08:57 → J6S 15:54
PROVIDERS: ADMIT Internal Medicine; ATTEND Internal Medicine
PROC: 0Y6R0Z2 Detachment at Right 2nd Toe, Mid, Open Approach (ICD-10-PCS; 2024-11-22)
PROC: 0Y6P0Z1 Detachment at Right 1st Toe, High, Open Approach (ICD-10-PCS; 2024-11-22)
PROC: 0Y6T0Z0 Detachment at Right 3rd Toe, Complete, Open Approach (ICD-10-PCS; principal; 2024-11-22 12:00)
PROC: 30233N1 Transfusion of Nonautologous Red Blood Cells into Peripheral Vein, Percutaneous Approach (ICD-10-PCS; 2024-11-24)
DX: E11.69 Type 2 diabetes mellitus with other specified complication (principal); E11.52 Type 2 diabetes mellitus with diabetic peripheral angiopathy with gangrene; I96 Gangrene, not elsewhere classified; M86.171 Other acute osteomyelitis, right ankle and foot; L97.518 Non-pressure chronic ulcer of other part of right foot with other specified severity; E78.5 Hyperlipidemia, unspecified; K21.9 Gastro-esophageal reflux disease without esophagitis; E11.22 Type 2 diabetes mellitus with diabetic chronic kidney disease; E11.621 Type 2 diabetes mellitus with foot ulcer; E11.42 Type 2 diabetes mellitus with diabetic polyneuropathy; E11.649 Type 2 diabetes mellitus with hypoglycemia without coma; I25.10 Atherosclerotic heart disease of native coronary artery without angina pectoris; I45.10 Unspecified right bundle-branch block; D64.9 Anemia, unspecified; I12.9 Hypertensive chronic kidney disease with stage 1 through stage 4 chronic kidney disease, or unspecified chronic kidney disease; N18.9 Chronic kidney disease, unspecified
CPT/HCPCS: 36415; 36430; 73630-TC-RT-FY; 73718-TC-RT; 80053; 82728; 82962; 83036; 83540; 83550; 84466; 85025; 85610; 85651; 86140; 86803; 86850; 86900; 86901; 86922; 87040; 87389; 88305-TC; 88311-TC; 93005; 93010; 94760; 99285-25; A6260; G0463-25; J0131; P9058

== ENCOUNTER 2025-01-03 09:44 | Inpatient (IN) | payer OTHER, BC ==
[2025-01-03] MEDS ORDERED: ACETAMINOPHEN INJECTION 100 ML ONE (10:39)
[2025-01-03] MEDS: ACETAMINOPHEN 1000 MG/100 ML BAG IVPB ONE (10:50)
[2025-01-03 11:16] LABS: HEMATOCRIT 28.6 % (34.1-44.9); HEMOGLOBIN 8.4 g/dL (11.2-15.7); MCHC 29.4 g/dl (32.2-35.5); MEAN CELL VOLUME 76.7 fl (79.4-94.8); PLATELET COUNT 449 x10^3/uL (182-369); RDW 16.7 % (12.3-16.6)
[2025-01-03 11:22] LABS: INR 1.39 (0.83-1.09); PROTHROMBIN TIME (PATIENT) 15.2 SEC (9.7-13.0)
[2025-01-03 11:25] LABS: ACTIVATED PTT 31.1 SECONDS (25.2-36.5)
[2025-01-03 11:42] LABS: POTASSIUM 5.2 mmol/L (3.5-5.1)
[2025-01-03 11:44] LABS: ALBUMIN 3.2 g/dl (3.4-5.0); CALCIUM 9.6 mg/dL (8.5-10.1)
[2025-01-03 11:48] LABS: BILIRUBIN,TOTAL 1.1 mg/dL (0.2-1)
[2025-01-03 11:49] LABS: TOT PROT 7.4 g/dl (6.4-8.2)
[2025-01-03 12:01] LABS: ERYTHROCYTE SEDIMENTATION RATE 116 mm/hr (0-30)
[2025-01-03] MEDS ORDERED: PIPERACILLIN/TAZOB 4.5 GM 4.5 GM/100 ML BAG IVPB ONE (13:11)
[2025-01-03] MEDS: SODIUM CHLORIDE 0.9% 500 ML INFUS.BAG IV ONE (13:20)
[2025-01-03] MEDS: PIPERACILLIN/TAZOB 4.5 GM 4.5 GM in DEXTROSE 5%-WATER 100 ML IVPB ONE (13:30)
[2025-01-03] MEDS: VANCOMYCIN 1,000 MG in DEXTROSE 5%-WATER - 250 ML IVPB ONE (20:11)
[2025-01-03 20:56] LABS: INR 1.42 (0.83-1.09); PROTHROMBIN TIME (PATIENT) 15.5 SEC (9.7-13.0)
[2025-01-03] MEDS ORDERED: APIXABAN 5 MG TABLET PO SCH (22:00)
[2025-01-03] MEDS: INSULIN ASPART SLIDING SCALE (NOVOLOG) 1 VIAL SQ SCH (22:00)
[2025-01-04] MEDS: PIPERACILLIN/TAZOB 3.375 GM 3.375 GM in DEXTROSE 5%-WATER - 50 ML IVPB SCH ×2 (01:50→21:26)
[2025-01-04] MEDS: ACETAMINOPHEN 1000 MG/100 ML BAG IVPB ONE (02:13)
[2025-01-04] MEDS ORDERED: BUPIVACAINE HCL/PF 0.5% (5MG/ML) 10 ML VIAL ONE (07:04)
[2025-01-04] MEDS ORDERED: LIDOCAINE HCL 1%, 10 MG/ML (20ML VIAL) ONE (07:04)
[2025-01-04] MEDS ORDERED: GENTAMICIN SO4 80 MG/2 ML VIAL ONE (07:04)
[2025-01-04] MEDS ORDERED: ONDANSETRON 4 MG/2 ML VIAL IVPUSH PRN ×2 (07:32→08:37)
[2025-01-04] MEDS ORDERED: LACTATED RINGERS SOLUTION 1,000 ML IV SCH ×2 (07:45→08:37)
[2025-01-04] MEDS: LIDOCAINE HCL 1%, 10 MG/ML (20ML VIAL) NR ONE (07:48)
[2025-01-04 09:48] LABS: ABSOLUTE IMMATURE GRANULOCYTES 0.22 x10^3/uL (0.0-0.031); BASOPHILS # 0.05 x10^3/uL (0.01-0.08); EOSINOPHIL % 0.5 % (0.7-5.8); EOSINOPHILS # 0.08 x10^3/uL (0.04-0.36); HEMATOCRIT 25.1 % (34.1-44.9); HEMOGLOBIN 7.4 g/dL (11.2-15.7); MCHC 29.5 g/dl (32.2-35.5); MEAN CELL VOLUME 77.5 fl (79.4-94.8); MEAN PLT VOLUME 9.5 fl (9.4-12.3); MONOCYTE # 0.72 x10^3/uL (0.24-0.86); MONOCYTE % 4.3 % (4.7-12.5); PLATELET COUNT 447 x10^3/uL (182-369); RDW 16.7 % (12.3-16.6)
[2025-01-04 09:56] LABS: INR 1.4 (0.83-1.09); PROTHROMBIN TIME (PATIENT) 15.4 SEC (9.7-13.0)
[2025-01-04] MEDS ORDERED: EMPAGLIFLOZIN (JARDIANCE) 10 MG TABLET PO SCH (10:00)
[2025-01-04] MEDS ORDERED: LISINOPRIL 20 MG TABLET PO SCH (10:00)
[2025-01-04] MEDS ORDERED: PIPERACILLIN/TAZOB 3.375 GM 3.375 GM in DEXTROSE 5%-WATER - 50 ML IVPB SCH (10:00)
[2025-01-04] MEDS ORDERED: ATORVASTATIN CA 10 MG TABLET (FP) PO SCH (10:00)
[2025-01-04 10:10] LABS: POTASSIUM 4.8 mmol/L (3.5-5.1)
[2025-01-04 10:11] LABS: POTASSIUM 4.7 mmol/L (3.5-5.1)
[2025-01-04 10:12] LABS: CALCIUM 9.1 mg/dL (8.5-10.1)
[2025-01-04 10:13] LABS: BLOOD UREA NITROGEN 16.8 mg/dL (7-18)
[2025-01-04 10:14] LABS: BLOOD UREA NITROGEN 16.7 mg/dL (7-18); CALCIUM 9.1 mg/dL (8.5-10.1)
[2025-01-04 10:16] LABS: CREATININE 0.8 mg/dL (0.55-1.3)
[2025-01-04 10:17] LABS: ALBUMIN 2.4 g/dl (3.4-5.0)
[2025-01-04 10:18] LABS: BILIRUBIN,TOTAL 0.6 mg/dL (0.2-1); CREATININE 0.8 mg/dL (0.55-1.3)
[2025-01-04 10:19] LABS: BILIRUBIN,TOTAL 0.7 mg/dL (0.2-1)
[2025-01-04] MEDS: ASPIRIN 81 MG CHEWABLE TABLETS PO SCH (10:25)
[2025-01-04] MEDS: APIXABAN 5 MG TABLET PO SCH (10:25)
[2025-01-04] MEDS: LISINOPRIL 20 MG TABLET PO SCH (10:26)
[2025-01-04] MEDS: PIPERACILLIN/TAZOB 3.375 GM 50 ML IVPB SCH (12:13)
[2025-01-04] MEDS: INSULIN ASPART SLIDING SCALE (NOVOLOG) 1 VIAL SQ SCH (12:14)
[2025-01-04] MEDS: EMPAGLIFLOZIN (JARDIANCE) 25 MG TABLET PO SCH (12:40)
[2025-01-04] MEDS ORDERED: INSULIN (NOVOLOG) ASPART 100 UNITS/ML 10ML VIAL ONE (16:45)
[2025-01-04] MEDS: ATORVASTATIN CA 20 MG TABLET (FP) PO SCH (21:32)
[2025-01-05] MEDS: EMPAGLIFLOZIN (JARDIANCE) 25 MG TABLET PO SCH (06:05)
[2025-01-05] MEDS ORDERED: INSULIN (NOVOLOG) ASPART 100 UNITS/ML 10ML VIAL ONE ×2 (12:21→18:47)
[2025-01-05 13:11] LABS: BASOPHILS # 0.05 x10^3/uL (0.01-0.08); EOSINOPHIL % 0.6 % (0.7-5.8); HEMATOCRIT 27.4 % (34.1-44.9); HEMOGLOBIN 8.1 g/dL (11.2-15.7); MCHC 29.6 g/dl (32.2-35.5); MEAN CELL VOLUME 76.3 fl (79.4-94.8); MEAN PLT VOLUME 9.4 fl (9.4-12.3); MONOCYTE # 1.04 x10^3/uL (0.24-0.86); MONOCYTE % 6.5 % (4.7-12.5); PLATELET COUNT 575 x10^3/uL (182-369); RDW 16.6 % (12.3-16.6)
[2025-01-05 14:30] VITALS: BMI 28.0
[2025-01-05] MEDS: PANTOPRAZOLE 40 MG TABLET PO SCH (17:19)
[2025-01-05] MEDS: metFORMIN HCL 500 MG TABLET (FP) PO SCH (17:19)
[2025-01-05] MEDS: CLOPIDOGREL BISULFATE 75 MG TABLET (FP) PO SCH (17:19)
[2025-01-05] MEDS: glipiZIDE-XL 10 MG TAB.ER.24 (FP) PO SCH (17:25)
[2025-01-05 22:09] VITALS: TEMP 97.9
[2025-01-06] MEDS: glipiZIDE-XL 5 MG TAB.ER.24 PO SCH (06:13)
[2025-01-06 06:27] VITALS: RESP 18
[2025-01-06 07:57] LABS: ABSOLUTE IMMATURE GRANULOCYTES 0.37 x10^3/uL (0.0-0.031); BASOPHILS # 0.08 x10^3/uL (0.01-0.08); EOSINOPHIL % 1.1 % (0.7-5.8); EOSINOPHILS # 0.15 x10^3/uL (0.04-0.36); HEMATOCRIT 28.3 % (34.1-44.9); HEMOGLOBIN 8.3 g/dL (11.2-15.7); MCHC 29.3 g/dl (32.2-35.5); MEAN CELL VOLUME 77.1 fl (79.4-94.8); MEAN PLT VOLUME 9.4 fl (9.4-12.3); MONOCYTE # 1.06 x10^3/uL (0.24-0.86); MONOCYTE % 7.5 % (4.7-12.5); PLATELET COUNT 606 x10^3/uL (182-369); RDW 16.6 % (12.3-16.6)
[2025-01-06 08:18] LABS: POTASSIUM 4.8 mmol/L (3.5-5.1)
[2025-01-06 08:28] LABS: ALBUMIN 2.8 g/dl (3.4-5.0); CALCIUM 9.2 mg/dL (8.5-10.1)
[2025-01-06 08:33] LABS: BILIRUBIN,TOTAL 0.4 mg/dL (0.2-1)
[2025-01-06] MEDS ORDERED: ASPIRIN 81 MG CHEWABLE TABLETS PO SCH (10:00)
[2025-01-06] MEDS: REGADENOSON 0.4 MG/5 ML PRE-FILLED SYRINGE IVPUSH ONE (11:40)
[2025-01-06] MEDS ORDERED: REGADENOSON 0.4 MG/5 ML PRE-FILLED SYRINGE IVPUSH ONE ×2 (11:43)
[2025-01-06 20:08] VITALS: BP 150/74; PULSE 89
== END 2025-01-06 20:57 | disposition short-term general hospital (02) | DRG 256 ==
LOC: JER 09:44 → JERBED 10:25 → J7W 14:05
PROVIDERS: ADMIT Internal Medicine; ATTEND Internal Medicine
PROC: 0Y6R0Z3 Detachment at Right 2nd Toe, Low, Open Approach (ICD-10-PCS; 2025-01-04)
PROC: 0Y6P0Z3 Detachment at Right 1st Toe, Low, Open Approach (ICD-10-PCS; principal; 2025-01-04 07:30)
DX: E11.52 Type 2 diabetes mellitus with diabetic peripheral angiopathy with gangrene (principal); M86.8X7 Other osteomyelitis, ankle and foot; M86.9 Osteomyelitis, unspecified; E78.5 Hyperlipidemia, unspecified; E11.51 Type 2 diabetes mellitus with diabetic peripheral angiopathy without gangrene; I10 Essential (primary) hypertension; E11.42 Type 2 diabetes mellitus with diabetic polyneuropathy; E11.621 Type 2 diabetes mellitus with foot ulcer; L97.509 Non-pressure chronic ulcer of other part of unspecified foot with unspecified severity; E11.69 Type 2 diabetes mellitus with other specified complication; I99.8 Other disorder of circulatory system
CPT/HCPCS: 36415; 73630-TC-RT-FY; 78452-TC; 80053; 82962; 83036; 85025; 85610; 85651; 85730; 86140; 86850; 86900; 86901; 87040; 87070; 87186; 87205; 88305-TC; 88311-TC; 93005; 93010; 93017; 93306-TC; 93922; 93926-TC; 94760; 99285-25; A9502; G0277; J0131; J2785

== ENCOUNTER 2025-01-31 17:09 | Inpatient (IN) | payer OTHER, BC ==
[2025-01-31 17:36] VITALS: BMI 26.9
[2025-01-31] MEDS ORDERED: PIPERACILLIN/TAZOB 4.5 GM 4.5 GM/100 ML BAG IVPB ONE (18:24)
[2025-01-31] MEDS: PANTOPRAZOLE SODIUM 40 MG VIAL IVPUSH ONE (19:00)
[2025-01-31] MEDS: PIPERACILLIN/TAZOB 3.375 GM 4.5 GM in DEXTROSE 5%-WATER - 50 ML IVPB ONE (19:00)
[2025-01-31] MEDS ORDERED: PANTOPRAZOLE SODIUM 40 MG VIAL ONE (19:03)
[2025-01-31 19:10] LABS: VENOUS BASE EXCESS 0.9 mmol/L (-2-2); VENOUS O2 SATURATION 73.3 % (70-80); VENOUS PCO2 39.4 mmHg (38-52); VENOUS PH 7.427 (7.310-7.410)
[2025-01-31 19:14] LABS: ABSOLUTE IMMATURE GRANULOCYTES 0.24 x10^3/uL (0.0-0.031); BASOPHILS # 0.03 x10^3/uL (0.01-0.08); EOSINOPHIL % 0.1 % (0.7-5.8); EOSINOPHILS # 0.01 x10^3/uL (0.04-0.36); HEMATOCRIT 19.4 % (34.1-44.9); HEMOGLOBIN 5.8 g/dL (11.2-15.7); MCHC 29.9 g/dl (32.2-35.5); MEAN CELL VOLUME 84.7 fl (79.4-94.8); MEAN PLT VOLUME 9.5 fl (9.4-12.3); MONOCYTE # 1.17 x10^3/uL (0.24-0.86); MONOCYTE % 6.9 % (4.7-12.5); PLATELET COUNT 535 x10^3/uL (182-369); RDW 18.6 % (12.3-16.6)
[2025-01-31 19:20] LABS: INR 1.94 (0.83-1.09); PROTHROMBIN TIME (PATIENT) 21.2 SEC (9.7-13.0)
[2025-01-31 19:23] LABS: ACTIVATED PTT 35.3 SECONDS (25.2-36.5)
[2025-01-31] MEDS: VANCOMYCIN PREMIX 1.5 GM 1,500 MG/300 ML BAG IVPB ONE (19:44)
[2025-01-31] MEDS: VANCOMYCIN HCL 1,500 MG in DEXTROSE 5%-WATER - 500 ML IVPB ONE (19:44)
[2025-01-31 19:54] LABS: POTASSIUM 4.6 mmol/L (3.5-5.1)
[2025-01-31 19:56] LABS: CALCIUM 8.9 mg/dL (8.5-10.1)
[2025-01-31 19:57] LABS: ALBUMIN 2.5 g/dl (3.4-5.0); BLOOD UREA NITROGEN 40.5 mg/dL (7-18)
[2025-01-31 20:00] LABS: CREATININE 1.2 mg/dL (0.55-1.3)
[2025-01-31 20:01] LABS: BILIRUBIN,TOTAL 0.3 mg/dL (0.2-1); TOT PROT 6.8 g/dl (6.4-8.2)
[2025-01-31 20:08] LABS: LACTIC ACID 2.3 mmol/L (0.4-2.0)
[2025-01-31 20:34] LABS: ERYTHROCYTE SEDIMENTATION RATE > 140 mm/hr (0-30)
[2025-01-31] MEDS ORDERED: ACETAMINOPHEN INJECTION 100 ML ONE (21:01)
[2025-01-31] MEDS: SODIUM CHLORIDE 0.9% 500 ML INFUS.BAG IV ONE (21:05)
[2025-01-31] MEDS: ACETAMINOPHEN 1000 MG/100 ML BAG IVPB ONE (21:05)
[2025-02-01] MEDS: ACETAMINOPHEN 325 MG TABLET (FP) PO PRN (05:53)
[2025-02-01] MEDS: PIPERACILLIN/TAZOB 4.5 GM 4.5 GM in DEXTROSE 5%-WATER 100 ML IVPB SCH (05:54)
[2025-02-01 07:16] LABS: ABSOLUTE IMMATURE GRANULOCYTES 0.36 x10^3/uL (0.0-0.031); BASOPHILS # 0.08 x10^3/uL (0.01-0.08); EOSINOPHIL % 0.4 % (0.7-5.8); EOSINOPHILS # 0.07 x10^3/uL (0.04-0.36); HEMATOCRIT 33.5 % (34.1-44.9); HEMOGLOBIN 10.3 g/dL (11.2-15.7); MCHC 30.7 g/dl (32.2-35.5); MEAN PLT VOLUME 9.5 fl (9.4-12.3); MONOCYTE # 0.81 x10^3/uL (0.24-0.86); MONOCYTE % 4.8 % (4.7-12.5); PLATELET COUNT 509 x10^3/uL (182-369); RDW 16.9 % (12.3-16.6)
[2025-02-01 07:32] LABS: POTASSIUM 4.5 mmol/L (3.5-5.1)
[2025-02-01 07:34] LABS: CALCIUM 8.8 mg/dL (8.5-10.1)
[2025-02-01 07:35] LABS: ALBUMIN 2.6 g/dl (3.4-5.0); BLOOD UREA NITROGEN 29.6 mg/dL (7-18)
[2025-02-01 07:37] LABS: CREATININE 0.9 mg/dL (0.55-1.3)
[2025-02-01 07:39] LABS: BILIRUBIN,TOTAL 1.1 mg/dL (0.2-1)
[2025-02-01 07:40] LABS: TOT PROT 7.3 g/dl (6.4-8.2)
[2025-02-01] MEDS: VANCOMYCIN/WATER FOR INJ (PEG) 1,000 MG/200 ML BAG IVPB SCH (09:53)
[2025-02-01] MEDS: CLOPIDOGREL BISULFATE 75 MG TABLET (FP) PO SCH (10:00)
[2025-02-01] MEDS: PANTOPRAZOLE 40 MG TABLET PO SCH (12:46)
[2025-02-01] MEDS: INSULIN ASPART SLIDING SCALE (NOVOLOG) 1 VIAL SQ SCH (12:46)
[2025-02-01] MEDS: VANCOMYCIN 1,000 MG in DEXTROSE 5%-WATER - 250 ML IVPB SCH (16:51)
[2025-02-01] MEDS: ATORVASTATIN CA 20 MG TABLET (FP) PO SCH (22:14)
[2025-02-02] MEDS: ACETAMINOPHEN 325 MG TABLET (FP) PO ONE (00:15)
[2025-02-02 07:02] LABS: ABSOLUTE IMMATURE GRANULOCYTES 0.14 x10^3/uL (0.0-0.031); BASOPHILS # 0.07 x10^3/uL (0.01-0.08); EOSINOPHIL % 1.4 % (0.7-5.8); EOSINOPHILS # 0.16 x10^3/uL (0.04-0.36); HEMOGLOBIN 9.2 g/dL (11.2-15.7); MCHC 31.7 g/dl (32.2-35.5); MEAN CELL VOLUME 83.6 fl (79.4-94.8); MEAN PLT VOLUME 9.2 fl (9.4-12.3); MONOCYTE # 0.99 x10^3/uL (0.24-0.86); MONOCYTE % 8.7 % (4.7-12.5); PLATELET COUNT 473 x10^3/uL (182-369); RDW 16.4 % (12.3-16.6)
[2025-02-02 07:13] LABS: POTASSIUM 4.2 mmol/L (3.5-5.1)
[2025-02-02 07:19] LABS: CALCIUM 8.5 mg/dL (8.5-10.1)
[2025-02-02 07:20] LABS: ALBUMIN 2.2 g/dl (3.4-5.0); BLOOD UREA NITROGEN 17.2 mg/dL (7-18)
[2025-02-02 07:24] LABS: BILIRUBIN,TOTAL 0.6 mg/dL (0.2-1); TOT PROT 6.2 g/dl (6.4-8.2)
[2025-02-03] MEDS: PIPERACILLIN/TAZOB 4.5 GM 4.5 GM in DEXTROSE 5%-WATER 100 ML IVPB SCH ×2 (03:56→17:59)
[2025-02-03 06:56] LABS: BASOPHILS # 0.04 x10^3/uL (0.01-0.08); EOSINOPHIL % 1.2 % (0.7-5.8); EOSINOPHILS # 0.14 x10^3/uL (0.04-0.36); HEMATOCRIT 29.7 % (34.1-44.9); HEMOGLOBIN 9.4 g/dL (11.2-15.7); MCHC 31.6 g/dl (32.2-35.5); MEAN CELL VOLUME 83.4 fl (79.4-94.8); MONOCYTE % 7.1 % (4.7-12.5); PLATELET COUNT 492 x10^3/uL (182-369); RDW 16.5 % (12.3-16.6)
[2025-02-03 07:29] LABS: POTASSIUM 4.5 mmol/L (3.5-5.1)
[2025-02-03 07:44] LABS: ALBUMIN 2.4 g/dl (3.4-5.0); BLOOD UREA NITROGEN 11.3 mg/dL (7-18); CALCIUM 8.8 mg/dL (8.5-10.1)
[2025-02-03 07:47] LABS: CREATININE 0.9 mg/dL (0.55-1.3)
[2025-02-03 07:48] LABS: BILIRUBIN,TOTAL 0.6 mg/dL (0.2-1); TOT PROT 6.6 g/dl (6.4-8.2)
[2025-02-03] MEDS: CEFAZOLIN 1 GM/D5W 1 GM/50 ML BAG IVPB SCH (18:03)
[2025-02-04 07:29] LABS: POTASSIUM 4.3 mmol/L (3.5-5.1)
[2025-02-04 07:35] LABS: ALBUMIN 2.5 g/dl (3.4-5.0); CALCIUM 8.8 mg/dL (8.5-10.1)
[2025-02-04 07:39] LABS: CREATININE 0.9 mg/dL (0.55-1.3)
[2025-02-04 07:40] LABS: BILIRUBIN,TOTAL 0.5 mg/dL (0.2-1); TOT PROT 6.8 g/dl (6.4-8.2)
[2025-02-04 08:13] LABS: ABSOLUTE IMMATURE GRANULOCYTES 0.13 x10^3/uL (0.0-0.031); BASOPHILS # 0.03 x10^3/uL (0.01-0.08); EOSINOPHIL % 0.8 % (0.7-5.8); HEMOGLOBIN 9.7 g/dL (11.2-15.7); MCHC 31.3 g/dl (32.2-35.5); MEAN CELL VOLUME 85.6 fl (79.4-94.8); MEAN PLT VOLUME 9.1 fl (9.4-12.3); MONOCYTE # 0.68 x10^3/uL (0.24-0.86); MONOCYTE % 5.7 % (4.7-12.5); PLATELET COUNT 508 x10^3/uL (182-369); RDW 16.8 % (12.3-16.6)
[2025-02-05 07:58] LABS: BASOPHILS # 0.04 x10^3/uL (0.01-0.08); EOSINOPHILS # 0.12 x10^3/uL (0.04-0.36); HEMATOCRIT 29.7 % (34.1-44.9); HEMOGLOBIN 9.1 g/dL (11.2-15.7); MCHC 30.6 g/dl (32.2-35.5); MEAN CELL VOLUME 86.3 fl (79.4-94.8); MEAN PLT VOLUME 9.3 fl (9.4-12.3); MONOCYTE # 0.64 x10^3/uL (0.24-0.86); MONOCYTE % 5.1 % (4.7-12.5); PLATELET COUNT 533 x10^3/uL (182-369); RDW 17.2 % (12.3-16.6)
[2025-02-05 08:23] LABS: POTASSIUM 4.5 mmol/L (3.5-5.1)
[2025-02-05 08:33] LABS: ALBUMIN 2.5 g/dl (3.4-5.0); BLOOD UREA NITROGEN 12.4 mg/dL (7-18)
[2025-02-05 08:36] LABS: CREATININE 0.8 mg/dL (0.55-1.3)
[2025-02-05 08:38] LABS: BILIRUBIN,TOTAL 0.4 mg/dL (0.2-1); TOT PROT 6.7 g/dl (6.4-8.2)
[2025-02-05 08:41] LABS: N-TERMINAL BNP 906.3 pg/ml (5-125)
[2025-02-05] MEDS: PANTOPRAZOLE 40 MG TABLET PO SCH (09:28)
[2025-02-05] MEDS: CLOPIDOGREL BISULFATE 75 MG TABLET (FP) PO SCH (09:28)
[2025-02-05] MEDS: CEFAZOLIN 1 GM/D5W 1 GM/50 ML BAG IVPB SCH (09:28)
[2025-02-05] MEDS: INSULIN ASPART SLIDING SCALE (NOVOLOG) 1 VIAL SQ SCH (12:15)
[2025-02-05] MEDS: ATORVASTATIN CA 20 MG TABLET (FP) PO SCH (22:21)
[2025-02-06 08:39] LABS: ABSOLUTE IMMATURE GRANULOCYTES 0.14 x10^3/uL (0.0-0.031); BASOPHILS # 0.05 x10^3/uL (0.01-0.08); EOSINOPHIL % 0.8 % (0.7-5.8); HEMOGLOBIN 9.2 g/dL (11.2-15.7); MCHC 30.7 g/dl (32.2-35.5); MEAN CELL VOLUME 86.2 fl (79.4-94.8); MEAN PLT VOLUME 8.9 fl (9.4-12.3); MONOCYTE # 0.66 x10^3/uL (0.24-0.86); MONOCYTE % 5.2 % (4.7-12.5); PLATELET COUNT 570 x10^3/uL (182-369); RDW 17.2 % (12.3-16.6)
[2025-02-06 09:02] LABS: POTASSIUM 4.4 mmol/L (3.5-5.1)
[2025-02-06 09:03] LABS: CALCIUM 9.4 mg/dL (8.5-10.1)
[2025-02-06 09:05] LABS: ALBUMIN 2.4 g/dl (3.4-5.0); BLOOD UREA NITROGEN 10.9 mg/dL (7-18)
[2025-02-06 09:08] LABS: CREATININE 0.7 mg/dL (0.55-1.3)
[2025-02-06 09:09] LABS: BILIRUBIN,TOTAL 0.5 mg/dL (0.2-1)
[2025-02-06 09:10] LABS: TOT PROT 6.7 g/dl (6.4-8.2)
[2025-02-06] MEDS: LISINOPRIL 20 MG TABLET PO SCH (12:51)
[2025-02-07] MEDS: ONDANSETRON 4 MG/2 ML VIAL IVPUSH PRN (09:32)
[2025-02-07] MEDS: LISINOPRIL 20 MG TABLET PO SCH (09:32)
[2025-02-07] MEDS: ACETAMINOPHEN 325 MG TABLET (FP) PO PRN (15:10)
[2025-02-08 07:30] LABS: BASOPHILS # 0.05 x10^3/uL (0.01-0.08); EOSINOPHIL % 0.8 % (0.7-5.8); EOSINOPHILS # 0.09 x10^3/uL (0.04-0.36); HEMATOCRIT 31.4 % (34.1-44.9); HEMOGLOBIN 9.6 g/dL (11.2-15.7); MCHC 30.6 g/dl (32.2-35.5); MEAN PLT VOLUME 9.2 fl (9.4-12.3); MONOCYTE # 0.72 x10^3/uL (0.24-0.86); PLATELET COUNT 638 x10^3/uL (182-369); RDW 17.7 % (12.3-16.6)
[2025-02-08 07:32] LABS: POTASSIUM 4.6 mmol/L (3.5-5.1)
[2025-02-08 07:38] LABS: ALBUMIN 2.6 g/dl (3.4-5.0); CALCIUM 9.1 mg/dL (8.5-10.1)
[2025-02-08 07:39] LABS: BLOOD UREA NITROGEN 20.2 mg/dL (7-18)
[2025-02-08 07:42] LABS: BILIRUBIN,TOTAL 0.4 mg/dL (0.2-1); CREATININE 1.2 mg/dL (0.55-1.3); TOT PROT 7.1 g/dl (6.4-8.2)
[2025-02-08] MEDS ORDERED: LIDOCAINE HCL 2% (20ML MULTI-DOSE VIAL) ONE (13:54)
[2025-02-08] MEDS ORDERED: PROPOFOL 20 ML ONE ×2 (14:17→15:51)
[2025-02-08] MEDS ORDERED: MIDAZOLAM HCL 2 MG/2 ML SINGLE DOSE VIAL ONE ×2 (14:17→15:50)
[2025-02-08] MEDS: LIDOCAINE HCL 2% (50ML VIAL) INF ONE (15:47)
[2025-02-08] MEDS ORDERED: DEXAMETHASONE SOD PHOSPHATE 4 MG/1 ML VIAL ONE (16:02)
[2025-02-08] MEDS ORDERED: ONDANSETRON 4 MG/2 ML VIAL ONE (16:02)
[2025-02-08] MEDS ORDERED: ceFAZolin SODIUM 1 GM VIAL ONE (16:11)
[2025-02-08] MEDS: ceFAZolin 2 GRAM PREMIX BAG IVPB ONE (16:15)
[2025-02-08] MEDS ORDERED: oxyCODONE HCL 5 MG TABLET PO PRN (16:53)
[2025-02-08] MEDS ORDERED: ONDANSETRON 4 MG/2 ML VIAL IVPUSH PRN ×3 (16:53→17:11)
[2025-02-08] MEDS: SODIUM CHLORIDE 1,000 ML IV SCH (17:43)
[2025-02-08] MEDS: oxyCODONE HCL 5 MG TABLET PO PRN (18:23)
[2025-02-08] MEDS: amLODIPine BESYLATE 2.5 MG TABLET (FP) PO SCH (19:15)
[2025-02-08] MEDS: ATORVASTATIN CA 20 MG TABLET (FP) PO SCH (22:10)
[2025-02-08] MEDS: INSULIN ASPART SLIDING SCALE (NOVOLOG) 1 VIAL SQ SCH (22:11)
[2025-02-09] MEDS: CEFAZOLIN 1 GM/D5W 1 GM/50 ML BAG IVPB SCH (02:10)
[2025-02-09] MEDS: ACETAMINOPHEN 1000 MG/100 ML BAG IVPB ONE (05:27)
[2025-02-09 07:11] LABS: ABSOLUTE IMMATURE GRANULOCYTES 0.08 x10^3/uL (0.0-0.031); BASOPHILS # 0.02 x10^3/uL (0.01-0.08); HEMOGLOBIN 7.4 g/dL (11.2-15.7); MCHC 30.8 g/dl (32.2-35.5); MEAN CELL VOLUME 84.8 fl (79.4-94.8); MEAN PLT VOLUME 9.1 fl (9.4-12.3); MONOCYTE # 0.91 x10^3/uL (0.24-0.86); MONOCYTE % 6.3 % (4.7-12.5); PLATELET COUNT 567 x10^3/uL (182-369); RDW 17.6 % (12.3-16.6)
[2025-02-09 07:27] LABS: POTASSIUM 4.7 mmol/L (3.5-5.1)
[2025-02-09 07:32] LABS: ALBUMIN 2.4 g/dl (3.4-5.0); BLOOD UREA NITROGEN 22.2 mg/dL (7-18)
[2025-02-09 07:35] LABS: CREATININE 1.1 mg/dL (0.55-1.3)
[2025-02-09 07:36] LABS: BILIRUBIN,TOTAL 0.4 mg/dL (0.2-1); TOT PROT 6.1 g/dl (6.4-8.2)
[2025-02-09] MEDS: ACETAMINOPHEN 325 MG TABLET (FP) PO PRN (10:24)
[2025-02-09] MEDS: LISINOPRIL 20 MG TABLET PO SCH (10:26)
[2025-02-09] MEDS: PANTOPRAZOLE 40 MG TABLET PO SCH (10:26)
[2025-02-09] MEDS: SODIUM CHLORIDE 1,000 ML IV SCH (10:29)
[2025-02-09] MEDS: CLOPIDOGREL BISULFATE 75 MG TABLET (FP) PO SCH (11:01)
[2025-02-09] MEDS: ENOXAPARIN NA (PORCINE) 40 MG/0.4 ML DISP.SYRIN SQ SCH (11:03)
[2025-02-09] MEDS: oxyCODONE HCL 5 MG TABLET PO PRN (18:03)
[2025-02-10 08:50] LABS: ABSOLUTE IMMATURE GRANULOCYTES 0.08 x10^3/uL (0.0-0.031); BASOPHILS # 0.06 x10^3/uL (0.01-0.08); EOSINOPHIL % 0.1 % (0.7-5.8); EOSINOPHILS # 0.02 x10^3/uL (0.04-0.36); HEMATOCRIT 25.1 % (34.1-44.9); MCHC 31.9 g/dl (32.2-35.5); MEAN CELL VOLUME 86.6 fl (79.4-94.8); MEAN PLT VOLUME 9.4 fl (9.4-12.3); MONOCYTE # 0.88 x10^3/uL (0.24-0.86); MONOCYTE % 6.5 % (4.7-12.5); PLATELET COUNT 475 x10^3/uL (182-369); RDW 16.7 % (12.3-16.6)
[2025-02-10 09:12] LABS: CHLORIDE 108 mmol/L (98-107); POTASSIUM 4.3 mmol/L (3.5-5.1); SODIUM 139 mmol/L (136-145)
[2025-02-10 09:14] LABS: CALCIUM 8.4 mg/dL (8.5-10.1)
[2025-02-10 09:15] LABS: ALBUMIN 2.3 g/dl (3.4-5.0); ANION GAP 8 mmol/L (4-13); BLOOD UREA NITROGEN 19.8 mg/dL (7-18); CO2 22 mmol/L (21-32); GLUCOSE,RANDOM 152 mg/dL (74-106)
[2025-02-10 09:18] LABS: CREATININE 0.7 mg/dL (0.55-1.3); SGOT/AST 9 U/L (15-37)
[2025-02-10 09:19] LABS: BILIRUBIN,TOTAL 0.8 mg/dL (0.2-1)
[2025-02-10 09:20] LABS: TOT PROT 5.8 g/dl (6.4-8.2)
[2025-02-10 09:21] LABS: ALK PHOS 81 U/L (45-117)
[2025-02-10 09:27] LABS: SGPT/ALT < 6 U/L (13-61)
[2025-02-11] MEDS: CEFTRIAXONE 2 GM-D5W BAG 2 GM/50 ML BAG IVPB SCH (10:16)
[2025-02-11 14:45] LABS: ABSOLUTE IMMATURE GRANULOCYTES 0.07 x10^3/uL (0.0-0.031); BASOPHILS # 0.06 x10^3/uL (0.01-0.08); EOSINOPHIL % 0.2 % (0.7-5.8); EOSINOPHILS # 0.03 x10^3/uL (0.04-0.36); HEMATOCRIT 23.2 % (34.1-44.9); HEMOGLOBIN 7.3 g/dL (11.2-15.7); MCHC 31.5 g/dl (32.2-35.5); MEAN CELL VOLUME 87.2 fl (79.4-94.8); MEAN PLT VOLUME 9.3 fl (9.4-12.3); MONOCYTE # 0.98 x10^3/uL (0.24-0.86); MONOCYTE % 8.1 % (4.7-12.5); PLATELET COUNT 473 x10^3/uL (182-369); RDW 16.8 % (12.3-16.6)
[2025-02-11] MEDS ORDERED: ACETAMINOPHEN 1000 MG/100 ML BAG IVPB PRN (16:36)
[2025-02-12 07:41] LABS: ABSOLUTE IMMATURE GRANULOCYTES 0.05 x10^3/uL (0.0-0.031); BASOPHILS # 0.04 x10^3/uL (0.01-0.08); EOSINOPHIL % 0.6 % (0.7-5.8); EOSINOPHILS # 0.06 x10^3/uL (0.04-0.36); HEMATOCRIT 29.7 % (34.1-44.9); HEMOGLOBIN 9.6 g/dL (11.2-15.7); MCHC 32.3 g/dl (32.2-35.5); MEAN CELL VOLUME 84.4 fl (79.4-94.8); MEAN PLT VOLUME 9.3 fl (9.4-12.3); MONOCYTE # 0.84 x10^3/uL (0.24-0.86); MONOCYTE % 7.8 % (4.7-12.5); PLATELET COUNT 475 x10^3/uL (182-369); RDW 16.3 % (12.3-16.6)
[2025-02-12 08:33] LABS: CHLORIDE 106 mmol/L (98-107); POTASSIUM 4.1 mmol/L (3.5-5.1); SODIUM 137 mmol/L (136-145)
[2025-02-12 08:34] LABS: CALCIUM 8.8 mg/dL (8.5-10.1)
[2025-02-12 08:36] LABS: ALBUMIN 2.3 g/dl (3.4-5.0); ANION GAP 7 mmol/L (4-13); BLOOD UREA NITROGEN 6.3 mg/dL (7-18); CO2 24 mmol/L (21-32); GLUCOSE,RANDOM 173 mg/dL (74-106)
[2025-02-12 08:39] LABS: CREATININE 0.5 mg/dL (0.55-1.3); SGOT/AST 6 U/L (15-37)
[2025-02-12 08:40] LABS: BILIRUBIN,TOTAL 0.7 mg/dL (0.2-1); SGPT/ALT < 6 U/L (13-61); TOT PROT 5.9 g/dl (6.4-8.2)
[2025-02-12 08:41] LABS: ALK PHOS 79 U/L (45-117)
[2025-02-12 15:27] VITALS: BP 133/71; PULSE 88; RESP 21; TEMP 98.4
== END 2025-02-12 16:27 | disposition home health service (06) | DRG 854 ==
LOC: JER 17:09 → JERBED 18:12 → J4S 02-01 00:09 → J7W 02-04 21:54
PROVIDERS: ADMIT Internal Medicine; ATTEND Internal Medicine
PROC: 30233N1 Transfusion of Nonautologous Red Blood Cells into Peripheral Vein, Percutaneous Approach (ICD-10-PCS; 2025-02-01)
PROC: 0Y6X0Z0 Detachment at Right 5th Toe, Complete, Open Approach (ICD-10-PCS; 2025-02-08)
PROC: 0Y6V0Z0 Detachment at Right 4th Toe, Complete, Open Approach (ICD-10-PCS; 2025-02-08)
PROC: 0Y6T0Z0 Detachment at Right 3rd Toe, Complete, Open Approach (ICD-10-PCS; 2025-02-08)
PROC: 0Y6R0Z0 Detachment at Right 2nd Toe, Complete, Open Approach (ICD-10-PCS; 2025-02-08)
PROC: 0Y6P0Z0 Detachment at Right 1st Toe, Complete, Open Approach (ICD-10-PCS; principal; 2025-02-08 15:30)
PROC: 02HV33Z Insertion of Infusion Device into Superior Vena Cava, Percutaneous Approach (ICD-10-PCS; 2025-02-11)
PROC: B548ZZA Ultrasonography of Superior Vena Cava, Guidance (ICD-10-PCS; 2025-02-11)
DX: A41.01 Sepsis due to Methicillin susceptible Staphylococcus aureus (principal); E11.52 Type 2 diabetes mellitus with diabetic peripheral angiopathy with gangrene; M86.8X7 Other osteomyelitis, ankle and foot; M86.671 Other chronic osteomyelitis, right ankle and foot; I10 Essential (primary) hypertension; E78.5 Hyperlipidemia, unspecified; E11.40 Type 2 diabetes mellitus with diabetic neuropathy, unspecified; D64.9 Anemia, unspecified; E11.42 Type 2 diabetes mellitus with diabetic polyneuropathy; I45.10 Unspecified right bundle-branch block; E11.69 Type 2 diabetes mellitus with other specified complication; E11.621 Type 2 diabetes mellitus with foot ulcer; L97.519 Non-pressure chronic ulcer of other part of right foot with unspecified severity
CPT/HCPCS: 0241U-QW; 36415; 36430; 36569; 71045-TC-FY; 73630-TC-RT-FY; 73718-TC-RT; 80048; 80053; 80061; 82272; 82803; 82962; 83036; 83605; 83880; 84443; 84484; 85025; 85027; 85610; 85651; 85730; 86140; 86850; 86900; 86901; 86922; 87040; 87070; 87075; 87186; 87205; 88307-TC; 88311-TC; 93005; 93010; 94760; 99285-25; G0277; G0463-25; J0131; P9038; P9058

== ENCOUNTER 2025-03-11 17:07 | Inpatient (IN) | payer OTHER, BC ==
[2025-03-11] MEDS ORDERED: FENTANYL CITRATE/PF 50 MCG/ML VIAL ONE (17:21)
[2025-03-11] MEDS ORDERED: ONDANSETRON 4 MG/2 ML VIAL ONE (17:23)
[2025-03-11 17:35] VITALS: BMI 26.5
[2025-03-11 17:50] LABS: ABSOLUTE IMMATURE GRANULOCYTES 0.09 x10^3/uL (0.0-0.031); BASOPHILS # 0.05 x10^3/uL (0.01-0.08); EOSINOPHIL % 2.9 % (0.7-5.8); EOSINOPHILS # 0.26 x10^3/uL (0.04-0.36); MCHC 30.8 g/dl (32.2-35.5); MEAN CELL VOLUME 87.3 fl (79.4-94.8); MEAN PLT VOLUME 9.6 fl (9.4-12.3); MONOCYTE # 0.66 x10^3/uL (0.24-0.86); MONOCYTE % 7.3 % (4.7-12.5); RDW 14.7 % (12.3-16.6)
[2025-03-11] MEDS ORDERED: SODIUM CHLORIDE 50 ML IVPB ONE ×4 (17:55→19:40)
[2025-03-11 17:59] LABS: INR 1.44 (0.83-1.09); PROTHROMBIN TIME (PATIENT) 15.8 SEC (9.7-13.0)
[2025-03-11 18:01] LABS: ACTIVATED PTT 29.6 SECONDS (25.2-36.5)
[2025-03-11 18:09] LABS: CO2 16 mmol/L (21-32); GLUCOSE,RANDOM 90 mg/dL (74-106)
[2025-03-11] MEDS: ONDANSETRON 4 MG/2 ML VIAL IVPUSH ONE (18:11)
[2025-03-11 18:12] LABS: CREATININE 0.4 mg/dL (0.55-1.3); SGOT/AST 7 U/L (15-37); SGPT/ALT 9 U/L (13-61)
[2025-03-11] MEDS: SODIUM CHLORIDE 50 ML IVPB ONE ×2 (18:12)
[2025-03-11 18:14] LABS: TOT PROT 4.1 g/dl (6.4-8.2)
[2025-03-11 18:15] LABS: ALK PHOS 54 U/L (45-117)
[2025-03-11] MEDS: FENTANYL CITRATE/PF 50 MCG/ML VIAL IVPUSH ONE (19:01)
[2025-03-11] MEDS ORDERED: CALCIUM GLUCONATE 10% - 1,000 MG/10 ML VIAL ONE (19:07)
[2025-03-11] MEDS: CALCIUM GLUCONATE 10% - 1,000 MG/10 ML VIAL IVPB ONE (19:20)
[2025-03-11 21:19] LABS: ABSOLUTE IMMATURE GRANULOCYTES 0.09 x10^3/uL (0.0-0.031); BASOPHILS # 0.04 x10^3/uL (0.01-0.08); EOSINOPHIL % 0.4 % (0.7-5.8); EOSINOPHILS # 0.06 x10^3/uL (0.04-0.36); MCHC 31.1 g/dl (32.2-35.5); MEAN CELL VOLUME 87.8 fl (79.4-94.8); MEAN PLT VOLUME 9.8 fl (9.4-12.3); MONOCYTE # 0.52 x10^3/uL (0.24-0.86); MONOCYTE % 3.4 % (4.7-12.5); RDW 14.1 % (12.3-16.6)
[2025-03-11] MEDS ORDERED: POTASSIUM CHLORIDE ORAL LIQUID 20 MEQ/15 ML ONE (23:41)
[2025-03-11] MEDS: POTASSIUM CHLORIDE ORAL LIQUID 20 MEQ/15 ML PO ONE (23:52)
[2025-03-12] MEDS ORDERED: glipiZIDE 5 MG TABLET (FP) ONE ×2 (06:22→17:05)
[2025-03-12] MEDS ORDERED: metFORMIN HCL 500 MG TABLET (FP) ONE (06:24)
[2025-03-12] MEDS: metFORMIN HCL 500 MG TABLET (FP) PO SCH ×2 (06:30→17:07)
[2025-03-12] MEDS: glipiZIDE 10 MG TABLET (FP) PO SCH (06:30)
[2025-03-12 07:37] LABS: ABSOLUTE IMMATURE GRANULOCYTES 0.03 x10^3/uL (0.0-0.031); BASOPHILS # 0.04 x10^3/uL (0.01-0.08); EOSINOPHIL % 1.4 % (0.7-5.8); EOSINOPHILS # 0.12 x10^3/uL (0.04-0.36); MCHC 31.1 g/dl (32.2-35.5); MEAN CELL VOLUME 86.5 fl (79.4-94.8); MEAN PLT VOLUME 10.0 fl (9.4-12.3); MONOCYTE # 0.67 x10^3/uL (0.24-0.86); MONOCYTE % 8.0 % (4.7-12.5); RDW 14.5 % (12.3-16.6)
[2025-03-12] MEDS ORDERED: LISINOPRIL 20 MG TABLET ONE (10:22)
[2025-03-12] MEDS ORDERED: PANTOPRAZOLE 40 MG TABLET PO ONE (10:22)
[2025-03-12 10:24] LABS: ALK PHOS 72.0 U/L (45-117); CO2 24.0 mmol/L (21-32); CREATININE 1.0 mg/dL (0.55-1.3); GLUCOSE,RANDOM 126.0 mg/dL (74-106); SGOT/AST 11.0 U/L (15-37); SGPT/ALT 12.0 U/L (13-61); TOT PROT 6.2 g/dl (6.4-8.2)
[2025-03-12] MEDS: LISINOPRIL 20 MG TABLET PO SCH (10:33)
[2025-03-12] MEDS: PANTOPRAZOLE 40 MG TABLET PO SCH (10:33)
[2025-03-12] MEDS: glipiZIDE 5 MG TABLET (FP) PO SCH (17:11)
[2025-03-12] MEDS: ATORVASTATIN CA 20 MG TABLET (FP) PO SCH (21:52)
[2025-03-13] MEDS: EMPAGLIFLOZIN (JARDIANCE) 25 MG TABLET PO SCH (06:38)
[2025-03-13 07:43] LABS: ABSOLUTE IMMATURE GRANULOCYTES 0.05 x10^3/uL (0.0-0.031); BASOPHILS # 0.04 x10^3/uL (0.01-0.08); EOSINOPHIL % 2.7 % (0.7-5.8); EOSINOPHILS # 0.24 x10^3/uL (0.04-0.36); MCHC 30.9 g/dl (32.2-35.5); MEAN CELL VOLUME 87.7 fl (79.4-94.8); MEAN PLT VOLUME 10.0 fl (9.4-12.3); MONOCYTE # 0.71 x10^3/uL (0.24-0.86); MONOCYTE % 7.9 % (4.7-12.5); RDW 14.6 % (12.3-16.6)
[2025-03-13 08:00] LABS: GLUCOSE,RANDOM 97.0 mg/dL (74-106)
[2025-03-13 08:01] LABS: CO2 25.0 mmol/L (21-32)
[2025-03-13 08:04] LABS: CREATININE 0.9 mg/dL (0.55-1.3); SGOT/AST 10.0 U/L (15-37); SGPT/ALT 14.0 U/L (13-61)
[2025-03-13 08:05] LABS: TOT PROT 6.0 g/dl (6.4-8.2)
[2025-03-13 08:06] LABS: ALK PHOS 69.0 U/L (45-117)
[2025-03-13] MEDS: ACETAMINOPHEN 1000 MG/100 ML BAG IVPB PRN (10:54)
[2025-03-14 07:54] LABS: ABSOLUTE IMMATURE GRANULOCYTES 0.03 x10^3/uL (0.0-0.031); BASOPHILS # 0.05 x10^3/uL (0.01-0.08); EOSINOPHIL % 2.2 % (0.7-5.8); EOSINOPHILS # 0.15 x10^3/uL (0.04-0.36); MCHC 30.6 g/dl (32.2-35.5); MEAN CELL VOLUME 88.3 fl (79.4-94.8); MEAN PLT VOLUME 10.0 fl (9.4-12.3); MONOCYTE # 0.54 x10^3/uL (0.24-0.86); MONOCYTE % 7.9 % (4.7-12.5); RDW 14.6 % (12.3-16.6)
[2025-03-14 08:28] LABS: GLUCOSE,RANDOM 132.0 mg/dL (74-106)
[2025-03-14 08:29] LABS: CREATININE 0.9 mg/dL (0.55-1.3)
[2025-03-14 08:30] LABS: SGPT/ALT 15.0 U/L (13-61); TOT PROT 6.0 g/dl (6.4-8.2)
[2025-03-14 08:31] LABS: ALK PHOS 78.0 U/L (45-117); SGOT/AST 12.0 U/L (15-37)
[2025-03-14 08:32] LABS: CO2 24.0 mmol/L (21-32)
[2025-03-14] MEDS ORDERED: LIDOCAINE HCL 2% (20ML MULTI-DOSE VIAL) ONE (12:26)
[2025-03-14] MEDS ORDERED: BUPIVACAINE HCL/PF 0.5% (5MG/ML) 10 ML VIAL ONE (12:27)
[2025-03-14] MEDS ORDERED: MIDAZOLAM HCL 2 MG/2 ML SINGLE DOSE VIAL ONE (13:05)
[2025-03-14] MEDS ORDERED: PROPOFOL 20 ML ONE (13:09)
[2025-03-14] MEDS: LACTATED RINGERS SOLUTION 1,000 ML IV SCH ×2 (14:10→14:26)
[2025-03-14] MEDS: glipiZIDE 5 MG TABLET (FP) PO SCH (17:04)
[2025-03-14] MEDS: metFORMIN HCL 500 MG TABLET (FP) PO SCH (17:04)
[2025-03-14] MEDS: ATORVASTATIN CA 20 MG TABLET (FP) PO SCH (21:52)
[2025-03-15] MEDS: EMPAGLIFLOZIN (JARDIANCE) 25 MG TABLET PO SCH (06:26)
[2025-03-15 07:09] LABS: ABSOLUTE IMMATURE GRANULOCYTES 0.03 x10^3/uL (0.0-0.031); BASOPHILS # 0.03 x10^3/uL (0.01-0.08); EOSINOPHIL % 2.2 % (0.7-5.8); EOSINOPHILS # 0.17 x10^3/uL (0.04-0.36); MCHC 30.1 g/dl (32.2-35.5); MEAN CELL VOLUME 89.1 fl (79.4-94.8); MEAN PLT VOLUME 10.2 fl (9.4-12.3); MONOCYTE # 0.63 x10^3/uL (0.24-0.86); MONOCYTE % 8.1 % (4.7-12.5); RDW 14.6 % (12.3-16.6)
[2025-03-15 07:28] LABS: CO2 27.0 mmol/L (21-32); GLUCOSE,RANDOM 90.0 mg/dL (74-106)
[2025-03-15 07:31] LABS: CREATININE 0.7 mg/dL (0.55-1.3); SGOT/AST 11.0 U/L (15-37); SGPT/ALT 14.0 U/L (13-61)
[2025-03-15 07:33] LABS: TOT PROT 6.2 g/dl (6.4-8.2)
[2025-03-15 07:34] LABS: ALK PHOS 70.0 U/L (45-117)
[2025-03-15] MEDS: LISINOPRIL 20 MG TABLET PO SCH (10:06)
[2025-03-15] MEDS: DOCUSATE SODIUM 100 MG CAPSULE (FP) PO SCH ×2 (10:06→21:49)
[2025-03-15] MEDS: PANTOPRAZOLE 40 MG TABLET PO SCH (10:06)
[2025-03-15] MEDS: LACTATED RINGERS SOLUTION 1,000 ML IV SCH (19:40)
[2025-03-15] MEDS: ATORVASTATIN CA 20 MG TABLET (FP) PO SCH (21:49)
[2025-03-16] MEDS: glipiZIDE 5 MG TABLET (FP) PO SCH (06:33)
[2025-03-16] MEDS: metFORMIN HCL 500 MG TABLET (FP) PO SCH (06:33)
[2025-03-16] MEDS: EMPAGLIFLOZIN (JARDIANCE) 25 MG TABLET PO SCH (06:34)
[2025-03-16 08:01] LABS: ABSOLUTE IMMATURE GRANULOCYTES 0.04 x10^3/uL (0.0-0.031); BASOPHILS # 0.03 x10^3/uL (0.01-0.08); EOSINOPHIL % 1.9 % (0.7-5.8); EOSINOPHILS # 0.16 x10^3/uL (0.04-0.36); MCHC 29.7 g/dl (32.2-35.5); MEAN CELL VOLUME 88.7 fl (79.4-94.8); MEAN PLT VOLUME 10.1 fl (9.4-12.3); MONOCYTE # 0.61 x10^3/uL (0.24-0.86); MONOCYTE % 7.1 % (4.7-12.5); RDW 14.4 % (12.3-16.6)
[2025-03-16] MEDS: ATORVASTATIN CA 10 MG TABLET (FP) PO SCH (08:20)
[2025-03-16 08:34] LABS: CO2 28.0 mmol/L (21-32); GLUCOSE,RANDOM 106.0 mg/dL (74-106)
[2025-03-16 08:37] LABS: CREATININE 0.8 mg/dL (0.55-1.3); SGOT/AST 14.0 U/L (15-37); SGPT/ALT 14.0 U/L (13-61)
[2025-03-16 08:39] LABS: TOT PROT 6.7 g/dl (6.4-8.2)
[2025-03-16 08:40] LABS: ALK PHOS 86.0 U/L (45-117)
[2025-03-16] MEDS: LISINOPRIL 20 MG TABLET PO SCH (10:54)
[2025-03-16] MEDS: PANTOPRAZOLE 40 MG TABLET PO SCH (10:55)
[2025-03-16 15:00] VITALS: BP 137/62; PULSE 64; RESP 18; TEMP 98.1
== END 2025-03-16 18:05 | disposition home or self-care (01) | DRG 464 ==
LOC: JER 17:07 → JERBED 17:58 → J4W 03-12 11:35 → J7W 03-15 18:37
PROVIDERS: ADMIT Internal Medicine; ATTEND Internal Medicine
PROC: 30233N1 Transfusion of Nonautologous Red Blood Cells into Peripheral Vein, Percutaneous Approach (ICD-10-PCS; 2025-03-09)
PROC: 0HQMXZZ Repair Right Foot Skin, External Approach (ICD-10-PCS; 2025-03-11)
PROC: 0HRMXK3 Replacement of Right Foot Skin with Nonautologous Tissue Substitute, Full Thickness, External Approach (ICD-10-PCS; 2025-03-14)
PROC: 0JBQ0ZZ Excision of Right Foot Subcutaneous Tissue and Fascia, Open Approach (ICD-10-PCS; principal; 2025-03-14 12:30)
DX: T87.89 Other complications of amputation stump (principal); M96.830 Postprocedural hemorrhage of a musculoskeletal structure following a musculoskeletal system procedure; D64.9 Anemia, unspecified; E11.51 Type 2 diabetes mellitus with diabetic peripheral angiopathy without gangrene; E11.40 Type 2 diabetes mellitus with diabetic neuropathy, unspecified; E78.5 Hyperlipidemia, unspecified; I10 Essential (primary) hypertension; E11.621 Type 2 diabetes mellitus with foot ulcer; L97.509 Non-pressure chronic ulcer of other part of unspecified foot with unspecified severity; Y83.9 Surgical procedure, unspecified as the cause of abnormal reaction of the patient, or of later complication, without mention of misadventure at the time of the procedure; T14.8XXA Other injury of unspecified body region, initial encounter; X58.XXXA Exposure to other specified factors, initial encounter; Y93.9 Activity, unspecified; Y92.89 Other specified places as the place of occurrence of the external cause; Y99.9 Unspecified external cause status
CPT/HCPCS: 11042; 36415; 36430; 80053; 82962; 83036; 85025; 85384; 85610; 85730; 87070; 87205; 93005; 93010; 94760; 97116-GP; 97163-GP; 97605; 99291; G0277; P9058; Q4121